=== PATIENT | male | born 1960 | race African-American/Black ===

== ENCOUNTER 2019-08-23 12:57 | Emergency (ER) | payer MEDICAID ==
[~2019-08-23] VITALS: Ht 177.8 cm; Wt 77.0 kg
[~2019-08-23 12:57] MED LIST: ALBU18HF2 IH; FLUT1DIS3 INH; IPRA3AMP9 NEB; NIFE-32 MT; NIFE-33 PO; P20 MT
[2019-08-23] MEDS ORDERED: KETOROLAC 60MG/2ML VIAL IM ONE (14:15)
[2019-08-23 14:59] VITALS: BP 136/88
== END 2019-08-23 15:00 | disposition home or self-care (01) ==
LOC: ER 12:57
DX: R07.89 Other chest pain (principal); I10 Essential (primary) hypertension
CPT/HCPCS: 71045; 93005; 96372; 99283; J1885

== ENCOUNTER 2019-10-11 19:21 | Inpatient (IN) | payer MEDICAID ==
[~2019-10-11] VITALS: Ht 182.9 cm; Wt 97.5 kg
[2019-10-11] MEDS ORDERED: IPRATROPIUM BROMIDE (0.02%) 0.5MG/2.5ML NEB HHN STA (19:50)
[2019-10-11] MEDS ORDERED: ALBUTEROL (0.083%) 2.5MG/3ML NEB HHN STA (19:50)
[2019-10-11] MEDS ORDERED: METHYLPREDNISOLONE SOD SUCC 125 MG/2 ML VIAL IV STA (20:47)
[2019-10-11 20:57] LABS: BASOPHILS % 1.3 % (0.0-2.0); EOSINOPHILS % 11.9 % (0.0-5.0); HEMATOCRIT. 43.9 % (42.0-52.0); HEMOGLOBIN. 14.8 g/dL (14.0-18.0); LYMPHOCYTES % 39.8 % (20.0-50.0); MEAN CORPUSCULAR HEMOGLOBIN 32.8 pg (28.0-32.0); MEAN CORPUSCULAR VOLUME 97.6 fL (80.0-94.0); MEAN PLATELET VOLUME 8.7 fl (7.4-10.4); MONOCYTES % 9.9 % (2.0-8.0); NEUTROPHILS % 37.1 % (40.0-76.0); PLATELET 187 x1000/uL (130-400); RED CELL DISTRIBUTION WIDTH 14.7 % (11.6-14.6)
[2019-10-11 21:01] LABS: PROTHROMBIN TIME 10.6 sec (9.6-11.0)
[2019-10-11 21:03] LABS: CHLORIDE 106 mEq/L (98-107)
[2019-10-11] MEDS ORDERED: LEVOFLOXACIN 750MG PREMIX 150 ML IV ONE (21:30)
[2019-10-12] MEDS ORDERED: CLONIDINE 0.2MG TABLET PO SCH
[2019-10-12] MEDS ORDERED: AMLODIPINE 5MG TABLET PO SCH
[2019-10-12] MEDS ORDERED: ALBUTEROL 6.7GM HFA INHALER ORI ONE (01:30)
[2019-10-12 04:00] VITALS: BP 151/100
[2019-10-12 05:00] VITALS: BP 151/100
[2019-10-12] MEDS ORDERED: ACETAMINOPHEN 325MG TABLET PO PRN (05:15)
[2019-10-12] MEDS ORDERED: IPRATROPIUM/ALBUTEROL 0.5-3(2.5)MG/3ML NEB HHN PRN (05:15)
[2019-10-12] MEDS ORDERED: CLONIDINE 0.1MG TABLET PO PRN (05:15)
[2019-10-12 08:00] VITALS: BP_SYST 100; BP_SYST 155; BP_DIAS 54; BP_DIAS 96
[2019-10-12] MEDS ORDERED: ENOXAPARIN 40MG/0.4ML SYR SUBCUT SCH (09:00)
[2019-10-12] MEDS ORDERED: ENOXAPARIN 30MG/0.3ML SYR SUBCUT SCH (09:00)
[2019-10-12] MEDS ORDERED: METHYLPREDNISOLONE SOD SUCC 40 MG/ML VIAL IV SCH (10:00)
[2019-10-12 12:00] VITALS: BP 150/96
[2019-10-12] MEDS: AZITHROMYCIN 500 MG TABLET PO SCH (12:08)
[2019-10-12] MEDS: AMLODIPINE 10MG TABLET PO SCH (12:08)
[2019-10-12] MEDS: CEFTRIAXONE 1 G PREMIX 50 ML IV SCH (12:16)
[2019-10-12] MEDS: ALBUTEROL 6.7GM HFA INHALER ORI SCH ×2 (14:05→21:25)
[2019-10-12 16:00] VITALS: BP 161/94
[2019-10-12] MEDS: METHYLPREDNISOLONE SOD SUCC 40 MG/ML VIAL IV SCH (16:48)
[2019-10-12 18:22] LABS: *AMPHETAMINES SCREEN URINE NEGATIVE (NEGATIVE); *BARBITURATES SCREEN URINE NEGATIVE (NEGATIVE)
[2019-10-12 18:23] LABS: *BENZODIAZEPINES SCREEN URINE NEGATIVE (NEGATIVE); *COCAINE SCREEN URINE NEGATIVE (NEGATIVE); CANNABINOID URINE SCREEN NEGATIVE (NEGATIVE); METHADONE URINE SCREEN NEGATIVE (NEGATIVE); OPIATES URINE SCREEN NEGATIVE (NEGATIVE); PHENCYCLIDINE URINE SCREEN NEGATIVE (NEGATIVE)
[2019-10-12 20:00] VITALS: BP 132/93
[2019-10-12] MEDS: GUAIFENESIN 600MG ER TABLET PO SCH (20:25)
[2019-10-13] MEDS: ALBUTEROL 6.7GM HFA INHALER ORI SCH (01:15)
[2019-10-13 04:00] VITALS: BP 134/87
[2019-10-13 08:00] VITALS: BP 128/82
[2019-10-13] MEDS ORDERED: ENOXAPARIN 40MG/0.4ML SYR SUBCUT SCH (09:00)
[2019-10-13] MEDS: AMLODIPINE 10MG TABLET PO SCH (09:21)
[2019-10-13] MEDS: AZITHROMYCIN 500 MG TABLET PO SCH (09:21)
[2019-10-13] MEDS: METHYLPREDNISOLONE SOD SUCC 40 MG/ML VIAL IV SCH ×2 (09:21→16:31)
[2019-10-13] MEDS: GUAIFENESIN 600MG ER TABLET PO SCH (09:21)
[2019-10-13 12:00] VITALS: BP 128/78
[2019-10-13] MEDS: CEFTRIAXONE 1 G PREMIX 50 ML IV SCH (13:12)
[2019-10-13] MEDS ORDERED: ALBUTEROL (0.083%) 2.5MG/3ML NEB HHN SCH (14:00)
[2019-10-13] MEDS ORDERED: IPRA3AMP9 NEB (14:13)
[2019-10-13] MEDS ORDERED: P20 MT (14:13)
[2019-10-13] MEDS ORDERED: ALBU18HF2 IH (14:13)
[2019-10-13] MEDS ORDERED: FLUT1DIS3 INH (14:13)
[2019-10-13] MEDS ORDERED: AMLO10TA80 PO (14:13)
[2019-10-13 16:40] VITALS: BP 128/82
== END 2019-10-13 17:30 | disposition home or self-care (01) | DRG 720 ==
LOC: ER 19:25 → 7WST 22:20 → EDBEDREQ 10-12 00:59 → ENRESERV 10-12 03:03 → 6WST 10-12 22:46
PROVIDERS: ADMIT Internal Medicine; ATTEND Internal Medicine
DX: A41.9 Sepsis, unspecified organism (principal); J96.00 Acute respiratory failure, unspecified whether with hypoxia or hypercapnia; J18.9 Pneumonia, unspecified organism; F17.210 Nicotine dependence, cigarettes, uncomplicated; F15.10 Other stimulant abuse, uncomplicated; F12.10 Cannabis abuse, uncomplicated; J44.1 Chronic obstructive pulmonary disease with (acute) exacerbation; F14.10 Cocaine abuse, uncomplicated; I49.3 Ventricular premature depolarization; I10 Essential (primary) hypertension; Z20.828 Contact with and (suspected) exposure to other viral communicable diseases; J44.0 Chronic obstructive pulmonary disease with (acute) lower respiratory infection; Y92.89 Other specified places as the place of occurrence of the external cause; Z79.899 Other long term (current) drug therapy; Z71.6 Tobacco abuse counseling; Z71.51 Drug abuse counseling and surveillance of drug abuser
CPT/HCPCS: 36415; 71045; 80053; 80305; 83605; 83880; 84145; 84484; 85025; 93005; 94640; 99285; J0696; J1650; J1956; J2920; J2930; U0003-CS

== ENCOUNTER 2019-11-26 16:43 | Inpatient (IN) | payer MEDICAID ==
[~2019-11-26] VITALS: Ht 188 cm; Wt 102.1 kg
[~2019-11-26 16:43] MED LIST changes: +AMLO10TA80 PO; -NIFE-32 MT; -NIFE-33 PO
[2019-11-26] MEDS ORDERED: ONDANSETRON HCL 4MG/2ML INJ IV STA (17:10)
[2019-11-26] MEDS ORDERED: FAMOTIDINE 20MG/2ML VIAL IV STA (17:10)
[2019-11-26] MEDS ORDERED: SODIUM CHLORIDE 0.9% 1,000 ML IV ONE (17:10)
[2019-11-26 18:12] LABS: BASOPHILS % 1.4 % (0.0-2.0); EOSINOPHILS % 12.1 % (0.0-5.0); HEMATOCRIT. 36.7 % (42.0-52.0); HEMOGLOBIN. 12.8 g/dL (14.0-18.0); LYMPHOCYTES % 31.9 % (20.0-50.0); MEAN CORPUSCULAR HEMOGLOBIN 33.7 pg (28.0-32.0); MEAN CORPUSCULAR VOLUME 96.7 fL (80.0-94.0); MEAN PLATELET VOLUME 7.7 fl (7.4-10.4); MONOCYTES % 12.1 % (2.0-8.0); NEUTROPHILS % 42.5 % (40.0-76.0); PLATELET 222 x1000/uL (130-400); RED BLOOD CELL COUNT 3.79 mill/uL (4.7-6.1)
[2019-11-26 18:18] LABS: CHLORIDE 105 mEq/L (98-107)
[2019-11-26 18:21] LABS: PROTHROMBIN TIME 10.9 sec (9.6-11.0)
[2019-11-26 18:23] LABS: ETHANOL BLOOD < 10 mg/dL
[2019-11-26] MEDS ORDERED: ALBUTEROL 6.7GM HFA INHALER ORI ONE (18:45)
[2019-11-26] MEDS ORDERED: AZITHROMYCIN 500 MG in DEXT 5% WATER 250 ML IV ONE (18:45)
[2019-11-26] MEDS ORDERED: MAGNESIUM 2 G PREMIX 50 ML IV ONE (18:45)
[2019-11-26] MEDS ORDERED: CEFTRIAXONE 1 G PREMIX 50 ML IV ONE (18:45)
[2019-11-26] MEDS ORDERED: DEXAMETHASONE 10 MG/ML VIAL IV ONE (18:45)
[2019-11-26 19:45] LABS: D-DIMER 0.38 mg/L FEU (<0.50)
[2019-11-26 21:25] LABS: C REACTIVE PROTEIN QUANT 0.9 mg/L (0.0-3.0)
[2019-11-26 22:59] LABS: CLARITY URINE CLEAR (CLEAR); COLOR URINE YELLOW (YELLOW); KETONES URINE NEGATIVE (NEGATIVE); LEUKOCYTE ESTERASE URINE NEGATIVE (NEGATIVE); NITRITE URINE NEGATIVE (NEGATIVE); OCCULT BLOOD URINE NEGATIVE (NEGATIVE); PROTEIN URINE NEGATIVE (NEGATIVE); SPECIFIC GRAVITY URINE 1.015 (1.005-1.030)
[2019-11-26 23:12] LABS: *BARBITURATES SCREEN URINE NEGATIVE (NEGATIVE); *BENZODIAZEPINES SCREEN URINE NEGATIVE (NEGATIVE); *COCAINE SCREEN URINE PRESUMTIVE POSITIVE (NEGATIVE)
[2019-11-26 23:13] LABS: *AMPHETAMINES SCREEN URINE PRESUMTIVE POSITIVE (NEGATIVE); CANNABINOID URINE SCREEN NEGATIVE (NEGATIVE); METHADONE URINE SCREEN NEGATIVE (NEGATIVE); OPIATES URINE SCREEN NEGATIVE (NEGATIVE); PHENCYCLIDINE URINE SCREEN NEGATIVE (NEGATIVE)
[2019-11-26 23:40] VITALS: BP 117/80
[2019-11-27] MEDS ORDERED: AZITHROMYCIN 500 MG in DEXT 5% WATER 250 ML IV SCH (01:00)
[2019-11-27] MEDS ORDERED: HYDROCODONE/ACETAMINOPHEN 5/325MG TABLET PO PRN (01:00)
[2019-11-27] MEDS ORDERED: ALBUTEROL 6.7GM HFA INHALER ORI PRN (01:00)
[2019-11-27] MEDS ORDERED: ACETAMINOPHEN 650MG/20.3ML UDC PO PRN (01:00)
[2019-11-27 04:00] VITALS: BP 136/89
[2019-11-27 08:00] VITALS: BP 132/84
[2019-11-27] MEDS: ENOXAPARIN 40MG/0.4ML SYR SUBCUT SCH (09:19)
[2019-11-27] MEDS: DEXAMETHASONE 4MG TABLET PO SCH (09:19)
[2019-11-27] MEDS: ASCORBIC ACID 500 MG TABLET PO SCH ×2 (09:20→20:40)
[2019-11-27] MEDS ORDERED: ALBUTEROL 6.7GM HFA INHALER ORI SCH (11:30)
[2019-11-27] MEDS: FAMOTIDINE 20MG/2ML VIAL IV SCH (14:59)
[2019-11-27 16:00] VITALS: BP 131/85
[2019-11-27 20:00] VITALS: BP 90/63
[2019-11-27] MEDS ORDERED: AZITHROMYCIN 250 MG in DEXT 5% WATER 250 ML IV SCH (21:00)
[2019-11-28] VITALS: BP 125/86
[2019-11-28 04:00] VITALS: BP 139/88
[2019-11-28 08:13] VITALS: BP 135/81
[2019-11-28] MEDS: DEXAMETHASONE 4MG TABLET PO SCH (09:59)
[2019-11-28] MEDS: FAMOTIDINE 20MG/2ML VIAL IV SCH (09:59)
[2019-11-28] MEDS: ASCORBIC ACID 500 MG TABLET PO SCH (09:59)
[2019-11-28] MEDS: ENOXAPARIN 40MG/0.4ML SYR SUBCUT SCH (09:59)
[2019-11-28] MEDS ORDERED: AZIT250T12 MT (12:08)
[2019-11-28] MEDS ORDERED: ALBU18HF2 IH (12:08)
[2019-11-28 12:53] VITALS: BP 128/83
[2019-11-28] MEDS ORDERED: IPRA3AMP9 NEB (12:56)
[2020-01-17] MEDS ORDERED: P20 MT (12:41)
[2020-01-17] MEDS ORDERED: FLUT1DIS3 INH (12:41)
[2020-01-17] MEDS ORDERED: ALBU18HF2 IH (12:41)
[2020-01-17] MEDS ORDERED: IPRA3AMP9 NEB (12:41)
== END 2019-11-28 13:55 | disposition home or self-care (01) | DRG 144 ==
LOC: ER 16:43 → 7WST 18:48 → ENRESERV 21:45 → 5WST 11-28 00:03
PROVIDERS: ADMIT Internal Medicine; ATTEND Internal Medicine
DX: J68.0 Bronchitis and pneumonitis due to chemicals, gases, fumes and vapors (principal); J96.00 Acute respiratory failure, unspecified whether with hypoxia or hypercapnia; N17.0 Acute kidney failure with tubular necrosis; I10 Essential (primary) hypertension; F14.10 Cocaine abuse, uncomplicated; F15.10 Other stimulant abuse, uncomplicated; F17.210 Nicotine dependence, cigarettes, uncomplicated; D64.9 Anemia, unspecified; Z20.828 Contact with and (suspected) exposure to other viral communicable diseases; F12.10 Cannabis abuse, uncomplicated; F10.10 Alcohol abuse, uncomplicated; Y90.9 Presence of alcohol in blood, level not specified
CPT/HCPCS: 36415; 71045; 80053; 80305; 80320; 81003; 82550; 82728; 82962; 83605; 83615; 83880; 84484; 85025; 85379; 85384; 86140; 87804; 93005; 94640; 96365; 99291; J0456; J0696; J1100; J1650; J2405; J3475; J3490; J7030; J7060; J8540; G0480; U0003-CS

== ENCOUNTER 2019-12-08 16:09 | Emergency (ER) | payer MEDICAID ==
[~2019-12-08] VITALS: Ht 180.3 cm; Wt 100.0 kg
[~2019-12-08 16:09] MED LIST changes: -AMLO10TA80 PO; +AZIT250T12 MT; -P20 MT
[2019-12-08] MEDS ORDERED: ALBUTEROL (0.083%) 2.5MG/3ML NEB HHN STA ×2 (17:34→19:44)
[2019-12-08] MEDS ORDERED: IPRATROPIUM BROMIDE (0.02%) 0.5MG/2.5ML NEB HHN STA ×2 (17:34→19:44)
[2019-12-08] MEDS ORDERED: PREDNISONE 20MG TABLET PO STA (18:55)
[2019-12-08 19:30] VITALS: BP 121/72
== END 2019-12-08 20:28 | disposition home or self-care (01) ==
LOC: ER 16:09
DX: J44.1 Chronic obstructive pulmonary disease with (acute) exacerbation (principal); Z79.899 Other long term (current) drug therapy
CPT/HCPCS: 71045; 93005; 94640; 99283; J7512; Z7610

== ENCOUNTER 2019-12-12 11:59 | Emergency (ER) | payer MEDICAID ==
[~2019-12-12] VITALS: Ht 177.8 cm; Wt 82.0 kg
[2019-12-12 12:01] VITALS: BP 111/83
[2020-01-17] MEDS ORDERED: P20 MT (12:41)
[2020-01-17] MEDS ORDERED: ALBU18HF2 IH (12:41)
[2020-01-17] MEDS ORDERED: FLUT1DIS3 INH (12:41)
[2020-01-17] MEDS ORDERED: IPRA3AMP9 NEB (12:41)
== END 2019-12-12 12:55 | disposition home or self-care (01) ==
LOC: ER 11:59
DX: J45.909 Unspecified asthma, uncomplicated (principal); I10 Essential (primary) hypertension; Z76.0 Encounter for issue of repeat prescription
CPT/HCPCS: 99281; 99283

== ENCOUNTER 2019-12-31 10:37 | Emergency (ER) | payer MEDICAID ==
[~2019-12-31] VITALS: Ht 190.5 cm; Wt 80.0 kg
[2019-12-31] MEDS ORDERED: ACETAMINOPHEN 325MG TABLET PO ONE (11:30)
[2019-12-31] MEDS ORDERED: CEPHALEXIN 250MG CAPSULE PO ONE (11:30)
[2019-12-31 11:58] VITALS: BP 168/72
[2020-01-17] MEDS ORDERED: ALBU18HF2 IH (12:41)
[2020-01-17] MEDS ORDERED: IPRA3AMP9 NEB (12:41)
[2020-01-17] MEDS ORDERED: FLUT1DIS3 INH (12:41)
[2020-01-17] MEDS ORDERED: P20 MT (12:41)
== END 2019-12-31 11:59 | disposition home or self-care (01) ==
LOC: ER 10:50
DX: L02.214 Cutaneous abscess of groin (principal); Z98.890 Other specified postprocedural states; Z79.899 Other long term (current) drug therapy
CPT/HCPCS: 99283

== ENCOUNTER 2020-01-29 11:34 | Emergency (ER) | payer MEDICAID ==
[~2020-01-29] VITALS: Ht 177.8 cm; Wt 130.0 kg
[~2020-01-29 11:34] MED LIST changes: +P20 MT
[2020-01-29] MEDS ORDERED: LIDOCAINE HCL/PF 1% 10 MG/ML 5ML VIAL IJ STA (13:02)
[2020-01-29] MEDS ORDERED: TETANUS, DIPHTHERIA, PERTUSSIS VAC/PF 0.5ML (>7YR OLD) IM ONE (13:15)
[2020-01-29] MEDS ORDERED: IBUPROFEN 600MG TABLET PO ONE (13:15)
[2020-01-29] MEDS ORDERED: BACITRACIN ZINC OINT UDPKT TOP ONE (13:15)
[2020-01-29 13:42] VITALS: BP 143/101
== END 2020-01-29 14:05 | disposition home or self-care (01) ==
LOC: ER 11:56
DX: L03.011 Cellulitis of right finger (principal); Z23 Encounter for immunization
CPT/HCPCS: 90471; 90715; 99283; J3490

== ENCOUNTER 2020-02-03 09:38 | Emergency (ER) | payer MEDICAID ==
[~2020-02-03] VITALS: Ht 190.5 cm; Wt 99.7 kg
[2020-02-03 10:10] VITALS: BP 130/95
[2020-02-03 10:45] LABS: BASOPHILS % 0.5 % (0.0-2.0); EOSINOPHILS % 13.9 % (0.0-5.0); HEMATOCRIT. 38.4 % (42.0-52.0); HEMOGLOBIN. 12.9 g/dL (14.0-18.0); LYMPHOCYTES % 20.5 % (20.0-50.0); MEAN CORPUSCULAR HEMOGLOBIN 32.5 pg (28.0-32.0); MEAN CORPUSCULAR VOLUME 96.8 fL (80.0-94.0); MEAN PLATELET VOLUME 7.9 fl (7.4-10.4); MONOCYTES % 9.7 % (2.0-8.0); NEUTROPHILS % 55.4 % (40.0-76.0); PLATELET 222 x1000/uL (130-400); RED BLOOD CELL COUNT 3.97 mill/uL (4.7-6.1); RED CELL DISTRIBUTION WIDTH 14.3 % (11.6-14.6)
[2020-02-03 10:51] LABS: CHLORIDE 102 mEq/L (98-107)
[2020-02-03] MEDS ORDERED: ALBUTEROL 6.7GM HFA INHALER ORI ONE (11:15)
[2020-02-03] MEDS ORDERED: PREDNISONE 20MG TABLET PO SCH (11:15)
[2020-02-03] MEDS ORDERED: ALBUTEROL (0.083%) 2.5MG/3ML NEB HHN STA (11:49)
[2020-02-03] MEDS ORDERED: IPRATROPIUM BROMIDE (0.02%) 0.5MG/2.5ML NEB HHN STA (11:49)
== END 2020-02-03 13:53 | disposition home or self-care (01) ==
LOC: ER 09:54
DX: J40 Bronchitis, not specified as acute or chronic (principal); Z87.891 Personal history of nicotine dependence
CPT/HCPCS: 36415; 71045; 80053; 83880; 84484; 85025; 93005; 94640; 99285; J7512; Z7610

== ENCOUNTER 2020-02-14 14:52 | Inpatient (IN) | payer MEDICAID ==
[~2020-02-14] VITALS: Ht 191.8 cm; Wt 98.9 kg
[2020-02-14] MEDS ORDERED: IPRATROPIUM BROMIDE (0.02%) 0.5MG/2.5ML NEB INH ONE ×3 (15:30)
[2020-02-14] MEDS ORDERED: METHYLPREDNISOLONE SOD SUCC 125 MG/2 ML VIAL IV ONE (15:30)
[2020-02-14] MEDS ORDERED: ASPIRIN 81MG TABLET PO ONE (15:30)
[2020-02-14] MEDS ORDERED: ALBUTEROL 6.7GM HFA INHALER ORI ONE ×3 (15:30)
[2020-02-14] MEDS ORDERED: NITROGLYCERIN 0.4MG TABLET SL SL PRN (15:30)
[2020-02-14 15:56] LABS: HEMATOCRIT. 38.5 % (42.0-52.0); MEAN CORPUSCULAR HEMOGLOBIN 32.9 pg (28.0-32.0); MEAN CORPUSCULAR VOLUME 97.1 fL (80.0-94.0); MEAN PLATELET VOLUME 7.9 fl (7.4-10.4); PLATELET 261 x1000/uL (130-400); RED BLOOD CELL COUNT 3.97 mill/uL (4.7-6.1); RED CELL DISTRIBUTION WIDTH 14.3 % (11.6-14.6)
[2020-02-14 16:02] LABS: CHLORIDE 104 mEq/L (98-107)
[2020-02-14 16:28] LABS: PLATELET ESTIMATE NORMAL
[2020-02-14 20:40] VITALS: BP 134/84
[2020-02-14] MEDS ORDERED: IBUP-2030 MT (23:48)
[2020-02-14] MEDS ORDERED: CLIN300C11 MT (23:48)
[2020-02-14] MEDS ORDERED: PROP50TA3 MT (23:48)
[2020-02-14] MEDS ORDERED: ASPI-1158 MT (23:48)
[2020-02-14] MEDS ORDERED: DIPH50CA38 MT (23:48)
[2020-02-14] MEDS ORDERED: AMLO10TA80 MT (23:48)
[2020-02-14] MEDS ORDERED: SITA100T11 MT (23:48)
[2020-02-14] MEDS ORDERED: AMA2 MT (23:48)
[2020-02-14] MEDS ORDERED: ATOR20TA65 MT (23:48)
[2020-02-14] MEDS ORDERED: METF750T46 MT (23:48)
[2020-02-14] MEDS ORDERED: LANS30CA55 MT (23:48)
[2020-02-14] MEDS ORDERED: CHLO25TA2 MT (23:48)
[2020-02-14] MEDS ORDERED: CEPH500C2 MT (23:48)
[2020-02-15] MEDS ORDERED: IPRATROPIUM/ALBUTEROL 0.5-3(2.5)MG/3ML NEB HHN PRN
[2020-02-15] MEDS ORDERED: DEXTROSE 50% WATER 50ML SYRINGE IV PRN
[2020-02-15] MEDS ORDERED: ACETAMINOPHEN 650MG/20.3ML UDC PO PRN
[2020-02-15 00:15] VITALS: BP 147/91
[2020-02-15] MEDS: METHYLPREDNISOLONE SOD SUCC 40 MG/ML VIAL IV SCH ×4 (01:10→21:09)
[2020-02-15 04:00] VITALS: BP 131/81
[2020-02-15] MEDS: OMEPRAZOLE 20MG CAPSULE EXTENDED RELEASE PO SCH (06:39)
[2020-02-15] MEDS: BLOOD SUGAR DIAGNOSTIC STRIP TEST SCH ×2 (06:40→12:20)
[2020-02-15] MEDS: INSULIN LISPRO 100 UNITS/ML SUBCUT SCH ×2 (06:42→12:50)
[2020-02-15] MEDS ORDERED: METFORMIN HCL 500MG TABLET PO SCH (07:50)
[2020-02-15] MEDS: IPRATROPIUM/ALBUTEROL 0.5-3(2.5)MG/3ML NEB HHN SCH ×4 (07:53→21:05)
[2020-02-15 08:00] VITALS: BP 131/101
[2020-02-15] MEDS: AMLODIPINE 10MG TABLET PO SCH (08:55)
[2020-02-15] MEDS ORDERED: ENOXAPARIN 30MG/0.3ML SYR SUBCUT SCH (09:00)
[2020-02-15] MEDS ORDERED: ENOXAPARIN 40MG/0.4ML SYR SUBCUT SCH (09:00)
[2020-02-15] MEDS: FLUTICASONE/VILANTEROL 200-25 BLST.W.DEV ORI SCH ×2 (09:00→17:59)
[2020-02-15] MEDS ORDERED: LEVOFLOXACIN 500MG TABLET PO SCH (09:00)
[2020-02-15 12:00] VITALS: BP 114/87
[2020-02-15] MEDS ORDERED: PNEUMOCOCCAL 23-VAL P-SAC VAC 0.5 ML IM ONE (12:00)
[2020-02-15 16:00] VITALS: BP 118/73
[2020-02-15 20:38] VITALS: BP 105/72
[2020-02-15] MEDS ORDERED: ATORVASTATIN CALCIUM 40MG TABLET PO SCH (21:00)
[2020-02-15 23:22] LABS: *AMPHETAMINES SCREEN URINE NEGATIVE (NEGATIVE); *BARBITURATES SCREEN URINE NEGATIVE (NEGATIVE); *BENZODIAZEPINES SCREEN URINE NEGATIVE (NEGATIVE)
[2020-02-15 23:23] LABS: *COCAINE SCREEN URINE NEGATIVE (NEGATIVE); CANNABINOID URINE SCREEN NEGATIVE (NEGATIVE); METHADONE URINE SCREEN NEGATIVE (NEGATIVE); OPIATES URINE SCREEN NEGATIVE (NEGATIVE); PHENCYCLIDINE URINE SCREEN NEGATIVE (NEGATIVE)
[2020-02-16] MEDS: IPRATROPIUM/ALBUTEROL 0.5-3(2.5)MG/3ML NEB HHN SCH ×3 (00:20→07:31)
[2020-02-16 00:51] VITALS: BP 112/68
[2020-02-16 04:00] VITALS: BP 121/70
[2020-02-16] MEDS: METHYLPREDNISOLONE SOD SUCC 40 MG/ML VIAL IV SCH (05:40)
[2020-02-16] MEDS: OMEPRAZOLE 20MG CAPSULE EXTENDED RELEASE PO SCH (06:31)
[2020-02-16 08:00] VITALS: BP 128/83
[2020-02-16] MEDS ORDERED: ENOXAPARIN 40MG/0.4ML SYR SUBCUT SCH (09:00)
[2020-02-16] MEDS: FLUTICASONE/VILANTEROL 200-25 BLST.W.DEV ORI SCH (09:23)
[2020-02-16] MEDS: AMLODIPINE 10MG TABLET PO SCH (09:24)
== END 2020-02-16 10:48 | disposition left against medical advice (07) | DRG 144 ==
LOC: ER 15:02 → 6WST 18:51 → EDBEDREQ 18:54 → EDBEDREQTM 18:54 → ENRESERV 19:54
PROVIDERS: ADMIT Internal Medicine; ATTEND Internal Medicine
DX: J68.0 Bronchitis and pneumonitis due to chemicals, gases, fumes and vapors (principal); J96.00 Acute respiratory failure, unspecified whether with hypoxia or hypercapnia; D64.9 Anemia, unspecified; Z53.29 Procedure and treatment not carried out because of patient's decision for other reasons; F17.210 Nicotine dependence, cigarettes, uncomplicated; I10 Essential (primary) hypertension; F12.10 Cannabis abuse, uncomplicated; F14.10 Cocaine abuse, uncomplicated; F10.10 Alcohol abuse, uncomplicated; Y90.9 Presence of alcohol in blood, level not specified; Z87.01 Personal history of pneumonia (recurrent); Z88.0 Allergy status to penicillin; Z79.899 Other long term (current) drug therapy; Z71.51 Drug abuse counseling and surveillance of drug abuser
CPT/HCPCS: 36415; 71045; 80053; 80305; 82962; 83036; 83880; 84484; 85025; 93005; 94640; 99285; J1650; J1815; J2920; J2930

== ENCOUNTER 2020-03-02 12:28 | Emergency (ER) | payer MEDICAID ==
[~2020-03-02] VITALS: Ht 190.5 cm; Wt 105.0 kg
[~2020-03-02 12:28] MED LIST changes: +AMA2 MT; +AMLO10TA80 MT; +ASPI-1158 MT; +ATOR20TA65 MT; +CEPH500C2 MT; +CHLO25TA2 MT; +CLIN300C11 MT; +DIPH50CA38 MT; +IBUP-2030 MT; +LANS30CA55 MT; +METF750T46 MT; +PROP50TA3 MT; +SITA100T11 MT
[2020-03-02] MEDS ORDERED: IPRATROPIUM/ALBUTEROL 0.5-3(2.5)MG/3ML NEB HHN ONE (13:15)
[2020-03-02] MEDS ORDERED: PREDNISONE 20MG TABLET PO ONE (13:15)
[2020-03-02 14:25] LABS: BASOPHILS % 1.3 % (0.0-2.0); EOSINOPHILS % 14.2 % (0.0-5.0); HEMATOCRIT. 37.4 % (42.0-52.0); HEMOGLOBIN. 12.6 g/dL (14.0-18.0); LYMPHOCYTES % 35.8 % (20.0-50.0); MEAN CORPUSCULAR HEMOGLOBIN 32.8 pg (28.0-32.0); MEAN CORPUSCULAR VOLUME 97.2 fL (80.0-94.0); MEAN PLATELET VOLUME 8.4 fl (7.4-10.4); MONOCYTES % 8.1 % (2.0-8.0); NEUTROPHILS % 40.6 % (40.0-76.0); PLATELET 202 x1000/uL (130-400); RED BLOOD CELL COUNT 3.85 mill/uL (4.7-6.1); RED CELL DISTRIBUTION WIDTH 14.4 % (11.6-14.6)
[2020-03-02 14:26] LABS: CHLORIDE 105 mEq/L (98-107)
[2020-03-02 14:38] LABS: INR 1.1; PROTHROMBIN TIME 11.3 sec (9.6-11.0)
[2020-03-02] MEDS ORDERED: DOXYCYCLINE HYCLATE 100MG CAPSULE PO ONE (15:00)
[2020-03-02 15:34] LABS: CLARITY URINE CLEAR (CLEAR); COLOR URINE YELLOW (YELLOW); KETONES URINE NEGATIVE (NEGATIVE); LEUKOCYTE ESTERASE URINE NEGATIVE (NEGATIVE); NITRITE URINE NEGATIVE (NEGATIVE); OCCULT BLOOD URINE NEGATIVE (NEGATIVE); PH URINE 5.5 (4.5-8.0); PROTEIN URINE NEGATIVE (NEGATIVE); SPECIFIC GRAVITY URINE 1.012 (1.005-1.030)
[2020-03-02 16:25] VITALS: BP 132/93
== END 2020-03-02 16:35 | disposition home or self-care (01) ==
LOC: ER 12:28
DX: J44.1 Chronic obstructive pulmonary disease with (acute) exacerbation (principal); Z76.0 Encounter for issue of repeat prescription; Z88.0 Allergy status to penicillin; Z87.820 Personal history of traumatic brain injury; Z79.82 Long term (current) use of aspirin; Z79.899 Other long term (current) drug therapy
CPT/HCPCS: 36415; 71045; 80053; 81003; 83880; 84484; 85025; 85610; 93005; 94640; 99285; J7512; Z7610

== ENCOUNTER 2020-03-17 13:14 | Emergency (ER) | payer MEDICAID ==
[~2020-03-17] VITALS: Ht 182.9 cm; Wt 91.0 kg
[2020-03-17] MEDS ORDERED: METHYLPREDNISOLONE SOD SUCC 125 MG/2 ML VIAL IV STA (14:51)
[2020-03-17] MEDS ORDERED: IPRATROPIUM BROMIDE (0.02%) 0.5MG/2.5ML NEB HHN STA (14:51)
[2020-03-17 15:00] LABS: CHLORIDE 106 mEq/L (98-107); EOSINOPHILS % 13.5 % (0.0-5.0); HEMATOCRIT. 39.8 % (42.0-52.0); HEMOGLOBIN. 13.3 g/dL (14.0-18.0); LYMPHOCYTES % 33.1 % (20.0-50.0); MEAN CORPUSCULAR HEMOGLOBIN 32.5 pg (28.0-32.0); MEAN CORPUSCULAR VOLUME 97.2 fL (80.0-94.0); MEAN PLATELET VOLUME 8.2 fl (7.4-10.4); MONOCYTES % 7.9 % (2.0-8.0); NEUTROPHILS % 44.5 % (40.0-76.0); PLATELET 235 x1000/uL (130-400); RED CELL DISTRIBUTION WIDTH 14.1 % (11.6-14.6)
[2020-03-17] MEDS ORDERED: MAGNESIUM 2 G PREMIX 50 ML IV ONE (15:00)
[2020-03-17] MEDS ORDERED: DOXYCYCLINE HYCLATE 100 MG/VIAL IV ONE (15:00)
[2020-03-17] MEDS ORDERED: DOXYCYCLINE 100MG in DEXTROSE 5% WATER 100ML IV SCH (15:15)
[2020-03-17] MEDS: ALBUTEROL (0.083%) 2.5MG/3ML NEB HHN SCH (15:27)
[2020-03-17 17:59] VITALS: BP 134/86
== END 2020-03-17 18:15 | disposition home or self-care (01) ==
LOC: ER 13:14
DX: J44.1 Chronic obstructive pulmonary disease with (acute) exacerbation (principal); J18.9 Pneumonia, unspecified organism; E78.00 Pure hypercholesterolemia, unspecified; Z87.891 Personal history of nicotine dependence; Z79.899 Other long term (current) drug therapy; Z88.0 Allergy status to penicillin
CPT/HCPCS: 36415; 71045; 80053; 83880; 84484; 85025; 93005; 94640; 96365; 96375; 99285; J2930; J3475; J3490; J7060; Z7610

== ENCOUNTER 2020-03-31 03:09 | Inpatient (IN) | payer MEDICAID ==
[~2020-03-31] VITALS: Ht 190.5 cm; Wt 100.2 kg
[2020-03-31] MEDS ORDERED: METHYLPREDNISOLONE SOD SUCC 125 MG/2 ML VIAL IV STA (03:32)
[2020-03-31] MEDS ORDERED: IPRATROPIUM BROMIDE (0.02%) 0.5MG/2.5ML NEB HHN STA (03:32)
[2020-03-31] MEDS ORDERED: ALBUTEROL (0.083%) 2.5MG/3ML NEB HHN STA (03:32)
[2020-03-31] MEDS ORDERED: NITROGLYCERIN OINT 1GM/INCH UDPKT TD ONE (03:45)
[2020-03-31] MEDS ORDERED: FUROSEMIDE 40MG/4ML VIAL IV ONE (03:45)
[2020-03-31] MEDS ORDERED: ASPIRIN 81MG TABLET PO ONE (03:45)
[2020-03-31 03:51] LABS: MEAN CORPUSCULAR HEMOGLOBIN 32.2 pg (28.0-32.0); MEAN CORPUSCULAR VOLUME 96.8 fL (80.0-94.0); MEAN PLATELET VOLUME 8.1 fl (7.4-10.4); PLATELET 207 x1000/uL (130-400); RED BLOOD CELL COUNT 4.34 mill/uL (4.7-6.1); RED CELL DISTRIBUTION WIDTH 14.2 % (11.6-14.6)
[2020-03-31 03:56] LABS: CHLORIDE 106 mEq/L (98-107)
[2020-03-31 04:15] LABS: PLATELET ESTIMATE NORMAL
[2020-03-31] MEDS ORDERED: MAGNESIUM/ALUMINUM HYDROXIDE/SIMETHICONE 30ML UDC PO ONE (06:30)
[2020-03-31] MEDS ORDERED: LORAZEPAM 1MG TABLET PO ONE (06:30)
[2020-03-31 11:10] VITALS: BP 133/86
[2020-03-31] MEDS ORDERED: IPRATROPIUM/ALBUTEROL 0.5-3(2.5)MG/3ML NEB HHN PRN ×2 (12:30→15:00)
[2020-03-31] MEDS ORDERED: ACETAMINOPHEN 325MG TABLET PO PRN ×2 (15:00)
[2020-03-31] MEDS ORDERED: ONDANSETRON HCL 4MG/2ML INJ IV PRN (15:00)
[2020-03-31] MEDS ORDERED: CLONIDINE 0.1MG TABLET PO PRN (15:00)
[2020-03-31] MEDS ORDERED: ZOLPIDEM TARTRATE 5MG TABLET PO PRN (15:00)
[2020-03-31] MEDS ORDERED: DIPHENHYDRAMINE 50MG/ML VIAL IV PRN (15:00)
[2020-03-31] MEDS ORDERED: LORAZEPAM 0.5MG TABLET PO PRN (15:00)
[2020-03-31] MEDS ORDERED: GUAIFENESIN 200MG/10ML SUGAR FREE UDC PO PRN (15:00)
[2020-03-31] MEDS ORDERED: MAGNESIUM/ALUMINUM HYDROXIDE/SIMETHICONE 30ML UDC PO PRN (15:00)
[2020-03-31] MEDS ORDERED: IPRATROPIUM/ALBUTEROL 0.5-3(2.5)MG/3ML NEB HHN SCH (18:00)
[2020-03-31] MEDS ORDERED: FAMOTIDINE 20MG TABLET PO SCH (21:00)
[2020-03-31] MEDS ORDERED: SODIUM CHLORIDE 0.9% INJ 3ML FLUSH IVF SCH (22:00)
[2020-03-31] MEDS ORDERED: METHYLPREDNISOLONE SOD SUCC 125 MG/2 ML VIAL IV SCH (22:00)
[2020-04-01] MEDS ORDERED: NICOTINE 21MG PATCH TD SCH (09:00)
== END 2020-03-31 16:22 | disposition left against medical advice (07) | DRG 140 ==
LOC: ER 03:51 → 6WST 05:29 → EDBEDREQ 05:31 → EDBEDREQTM 05:31 → ENRESERV 10:20
PROVIDERS: ADMIT Internal Medicine; ATTEND Internal Medicine
DX: J44.1 Chronic obstructive pulmonary disease with (acute) exacerbation (principal); J96.90 Respiratory failure, unspecified, unspecified whether with hypoxia or hypercapnia; E78.00 Pure hypercholesterolemia, unspecified; F17.200 Nicotine dependence, unspecified, uncomplicated; Z53.29 Procedure and treatment not carried out because of patient's decision for other reasons; Z88.0 Allergy status to penicillin; Z79.82 Long term (current) use of aspirin; Z79.899 Other long term (current) drug therapy; Z71.6 Tobacco abuse counseling; Z87.01 Personal history of pneumonia (recurrent)
CPT/HCPCS: 36415; 71045; 80053; 83880; 84484; 85025; 93005; 94640; 99291; J1940; J2930

== ENCOUNTER 2020-04-02 15:40 | Emergency (ER) | payer MEDICAID ==
[~2020-04-02] VITALS: Ht 190.5 cm; Wt 106.0 kg
[2020-04-02] MEDS ORDERED: IPRATROPIUM/ALBUTEROL 0.5-3(2.5)MG/3ML NEB HHN ONE (16:15)
[2020-04-02] MEDS ORDERED: PREDNISONE 20MG TABLET PO ONE (17:30)
[2020-04-02 17:42] VITALS: BP 139/90
== END 2020-04-02 18:10 | disposition home or self-care (01) ==
LOC: ER 15:40
DX: J44.1 Chronic obstructive pulmonary disease with (acute) exacerbation (principal); E78.00 Pure hypercholesterolemia, unspecified; I10 Essential (primary) hypertension; Z76.0 Encounter for issue of repeat prescription; Z88.0 Allergy status to penicillin; Z79.899 Other long term (current) drug therapy
CPT/HCPCS: 71045; 94640; 99283; J7512; Z7610

== ENCOUNTER 2020-04-12 07:33 | Emergency (ER) | payer MEDICAID ==
[~2020-04-12] VITALS: Ht 185.4 cm; Wt 75.0 kg
[2020-04-12 07:36] VITALS: BP 154/102
[2020-04-12] MEDS ORDERED: KETOROLAC 30MG/ML VIAL IM ONE (08:30)
== END 2020-04-12 12:26 | disposition home or self-care (01) ==
LOC: ER 07:33
DX: G89.29 Other chronic pain (principal); M54.5 Low back pain; J45.909 Unspecified asthma, uncomplicated; E78.00 Pure hypercholesterolemia, unspecified; I10 Essential (primary) hypertension; Z20.828 Contact with and (suspected) exposure to other viral communicable diseases; Z79.899 Other long term (current) drug therapy; Z88.0 Allergy status to penicillin; Z98.890 Other specified postprocedural states
CPT/HCPCS: 87426; 96372; 99283; J1885

== ENCOUNTER 2020-04-15 13:46 | Emergency (ER) | payer MEDICAID ==
[~2020-04-15] VITALS: Ht 177.8 cm; Wt 70.0 kg
[2020-04-15 14:55] VITALS: BP 153/109
[2020-04-15] MEDS ORDERED: IPRATROPIUM BROMIDE (0.02%) 0.5MG/2.5ML NEB HHN STA (14:58)
[2020-04-15] MEDS ORDERED: PREDNISONE 20MG TABLET PO STA (14:58)
[2020-04-15] MEDS ORDERED: DOXYCYCLINE HYCLATE 100MG CAPSULE PO ONE (15:00)
[2020-04-15] MEDS: ALBUTEROL (0.083%) 2.5MG/3ML NEB HHN SCH ×3 (15:40→16:18)
[2020-04-15 15:59] LABS: CHLORIDE 109 mEq/L (98-107)
[2020-04-15 16:06] LABS: BASOPHILS % 1.1 % (0.0-2.0); EOSINOPHILS % 14.7 % (0.0-5.0); HEMATOCRIT. 41.1 % (42.0-52.0); HEMOGLOBIN. 13.7 g/dL (14.0-18.0); LYMPHOCYTES % 24.1 % (20.0-50.0); MEAN CORPUSCULAR HEMOGLOBIN 31.8 pg (28.0-32.0); MEAN CORPUSCULAR VOLUME 95.7 fL (80.0-94.0); MONOCYTES % 7.9 % (2.0-8.0); NEUTROPHILS % 52.2 % (40.0-76.0); PLATELET 213 x1000/uL (130-400); RED CELL DISTRIBUTION WIDTH 14.1 % (11.6-14.6)
== END 2020-04-15 19:10 | disposition home or self-care (01) ==
LOC: ER 13:46
DX: J44.1 Chronic obstructive pulmonary disease with (acute) exacerbation (principal); E11.9 Type 2 diabetes mellitus without complications; E78.00 Pure hypercholesterolemia, unspecified; I11.0 Hypertensive heart disease with heart failure; I50.9 Heart failure, unspecified; Z88.0 Allergy status to penicillin; Z79.899 Other long term (current) drug therapy
CPT/HCPCS: 36415; 71045; 80053; 83880; 84484; 85025; 94640; 99285; J7512; Z7610

== ENCOUNTER 2020-05-07 11:13 | Emergency (ER) | payer MEDICAID ==
[~2020-05-07] VITALS: Ht 188 cm; Wt 100.0 kg
[~2020-05-07 11:13] MED LIST changes: -AZIT250T12 MT; -CEPH500C2 MT; -CLIN300C11 MT
[2020-05-07 11:30] VITALS: BP 118/94
== END 2020-05-07 11:55 | disposition home or self-care (01) ==
LOC: ER 11:13
DX: E11.9 Type 2 diabetes mellitus without complications (principal); J44.1 Chronic obstructive pulmonary disease with (acute) exacerbation; I11.0 Hypertensive heart disease with heart failure; I50.9 Heart failure, unspecified; E78.00 Pure hypercholesterolemia, unspecified; Z76.0 Encounter for issue of repeat prescription; Z79.899 Other long term (current) drug therapy; Z88.0 Allergy status to penicillin; Z98.890 Other specified postprocedural states
CPT/HCPCS: 99283

== ENCOUNTER 2020-06-07 09:05 | Emergency (ER) | payer MEDICAID ==
[~2020-06-07] VITALS: Ht 177.8 cm; Wt 91.0 kg
[~2020-06-07 09:05] MED LIST changes: -ASPI-1158 MT; +ASPI-1406 MT
[2020-06-07] MEDS ORDERED: IPRATROPIUM BROMIDE (0.02%) 0.5MG/2.5ML NEB HHN STA (09:28)
[2020-06-07] MEDS ORDERED: METHYLPREDNISOLONE SOD SUCC 125 MG/2 ML VIAL IM ONE (09:30)
[2020-06-07] MEDS ORDERED: ALBUTEROL (0.083%) 2.5MG/3ML NEB HHN SCH (09:30)
[2020-06-07 11:38] VITALS: BP 140/82
== END 2020-06-07 11:42 | disposition home or self-care (01) ==
LOC: ER 09:05
DX: J44.1 Chronic obstructive pulmonary disease with (acute) exacerbation (principal); Z77.22 Contact with and (suspected) exposure to environmental tobacco smoke (acute) (chronic); I11.0 Hypertensive heart disease with heart failure; I50.9 Heart failure, unspecified; E11.9 Type 2 diabetes mellitus without complications; E78.00 Pure hypercholesterolemia, unspecified; Z88.0 Allergy status to penicillin; Z88.1 Allergy status to other antibiotic agents; Z79.899 Other long term (current) drug therapy; Z98.890 Other specified postprocedural states; Z87.891 Personal history of nicotine dependence
CPT/HCPCS: 71045; 93005; 94640; 96372; 99283; J2930; Z7610

== ENCOUNTER 2020-06-16 12:08 | Emergency (ER) | payer MEDICAID ==
[~2020-06-16] VITALS: Ht 198.1 cm; Wt 103.6 kg
[2020-06-16 12:30] VITALS: BP 126/105
[2020-06-16] MEDS ORDERED: ALBUTEROL (0.083%) 2.5MG/3ML NEB HHN STA (12:44)
[2020-06-16] MEDS ORDERED: IPRATROPIUM BROMIDE (0.02%) 0.5MG/2.5ML NEB HHN STA (12:44)
[2020-06-16] MEDS ORDERED: PREDNISONE 20MG TABLET PO STA (12:44)
[2020-06-16] MEDS ORDERED: AZITHROMYCIN 500 MG TABLET PO ONE (13:45)
[2020-06-16 14:29] LABS: EOSINOPHILS % 12.1 % (0.0-5.0); HEMATOCRIT. 40.8 % (42.0-52.0); HEMOGLOBIN. 13.5 g/dL (14.0-18.0); LYMPHOCYTES % 34.9 % (20.0-50.0); MEAN PLATELET VOLUME 7.8 fl (7.4-10.4); MONOCYTES % 11.4 % (2.0-8.0); NEUTROPHILS % 40.6 % (40.0-76.0); PLATELET 210 x1000/uL (130-400); RED BLOOD CELL COUNT 4.35 mill/uL (4.7-6.1); RED CELL DISTRIBUTION WIDTH 14.6 % (11.6-14.6)
[2020-06-16 14:38] LABS: CHLORIDE 104 mEq/L (98-107)
[2020-06-16] MEDS ORDERED: P20 MT (17:34)
[2020-06-16] MEDS ORDERED: AZIT250T12 PO (17:34)
[2020-06-16] MEDS ORDERED: ATOR20TA65 MT (17:34)
[2020-06-16] MEDS ORDERED: ALBU18HF2 IH (17:34)
[2020-06-16] MEDS ORDERED: FLUT1DIS3 INH (17:34)
[2020-06-17] MEDS ORDERED: METF750T46 MT (16:20)
[2020-06-17] MEDS ORDERED: FLUT1DIS3 INH (16:20)
[2020-06-17] MEDS ORDERED: AMLO10TA80 MT (16:20)
== END 2020-06-16 18:37 | disposition home or self-care (01) ==
LOC: ER 12:36
DX: J44.1 Chronic obstructive pulmonary disease with (acute) exacerbation (principal); I11.0 Hypertensive heart disease with heart failure; I50.9 Heart failure, unspecified; E78.00 Pure hypercholesterolemia, unspecified; Z88.0 Allergy status to penicillin; Z88.1 Allergy status to other antibiotic agents; Z79.899 Other long term (current) drug therapy; Z98.890 Other specified postprocedural states
CPT/HCPCS: 36415; 71045; 80053; 83880; 84484; 85025; 93005; 94640; 99285; J7512; Z7610

== ENCOUNTER 2020-06-17 15:10 | Emergency (ER) | payer MEDICAID ==
[~2020-06-17] VITALS: Ht 185.4 cm; Wt 90.0 kg
[~2020-06-17 15:10] MED LIST changes: +AZIT250T12 PO
[2020-06-17 15:18] VITALS: BP 130/90
[2020-06-17] MEDS ORDERED: FLUT1DIS3 INH (16:20)
[2020-06-17] MEDS ORDERED: AMLO10TA80 MT (16:20)
[2020-06-17] MEDS ORDERED: METF750T46 MT (16:20)
[2020-07-16] MEDS ORDERED: P20 MT (11:19)
[2020-07-16] MEDS ORDERED: FLUT1DIS3 INH (11:19)
[2020-07-16] MEDS ORDERED: ALBU18HF2 IH (11:19)
[2020-07-16] MEDS ORDERED: IPRA3AMP9 NEB (11:19)
== END 2020-06-17 16:44 | disposition home or self-care (01) ==
LOC: ER 15:10
DX: J44.9 Chronic obstructive pulmonary disease, unspecified (principal); E78.00 Pure hypercholesterolemia, unspecified; I10 Essential (primary) hypertension; E11.9 Type 2 diabetes mellitus without complications; Z76.0 Encounter for issue of repeat prescription; Z88.0 Allergy status to penicillin; Z88.1 Allergy status to other antibiotic agents; Z79.899 Other long term (current) drug therapy; Z79.82 Long term (current) use of aspirin
CPT/HCPCS: 99282; 99283

== ENCOUNTER 2020-06-18 20:35 | Inpatient (IN) | payer MEDICAID ==
[~2020-06-18] VITALS: Ht 172.7 cm; Wt 79.8 kg
[2020-06-18 22:44] LABS: BASOPHILS % 0.9 % (0.0-2.0); EOSINOPHILS % 9.5 % (0.0-5.0); HEMATOCRIT. 40.3 % (42.0-52.0); LYMPHOCYTES % 36.3 % (20.0-50.0); MEAN CORPUSCULAR HEMOGLOBIN 30.6 pg (28.0-32.0); MEAN CORPUSCULAR VOLUME 94.5 fL (80.0-94.0); MEAN PLATELET VOLUME 8.1 fl (7.4-10.4); MONOCYTES % 9.8 % (2.0-8.0); NEUTROPHILS % 43.5 % (40.0-76.0); PLATELET 231 x1000/uL (130-400); RED BLOOD CELL COUNT 4.26 mill/uL (4.7-6.1); RED CELL DISTRIBUTION WIDTH 14.6 % (11.6-14.6)
[2020-06-18 22:50] LABS: CHLORIDE 104 mEq/L (98-107)
[2020-06-18 22:52] LABS: CLARITY URINE CLEAR (CLEAR); COLOR URINE YELLOW (YELLOW); KETONES URINE NEGATIVE (NEGATIVE); LEUKOCYTE ESTERASE URINE NEGATIVE (NEGATIVE); NITRITE URINE NEGATIVE (NEGATIVE); OCCULT BLOOD URINE NEGATIVE (NEGATIVE); PH URINE 6.5 (4.5-8.0); PROTEIN URINE NEGATIVE (NEGATIVE); SPECIFIC GRAVITY URINE 1.004 (1.005-1.030); UROBILINOGEN URINE 0.2 E.U./dL (0.2-1.0)
[2020-06-18 22:55] LABS: C REACTIVE PROTEIN QUANT 1.2 mg/L (0.0-3.0)
[2020-06-18 22:58] LABS: CREATINE KINASE 289 IU/L (39-308); PROTHROMBIN TIME 10.5 sec (9.6-11.0)
[2020-06-18] MEDS ORDERED: ALBUTEROL (0.5%) 2.5MG/0.5ML NEB HHN ONE ×3 (23:30)
[2020-06-18] MEDS ORDERED: DEXAMETHASONE 10 MG/ML VIAL IV ONE (23:30)
[2020-06-19] MEDS ORDERED: ACETAMINOPHEN 325MG TABLET PO PRN (09:30)
[2020-06-19] MEDS ORDERED: ONDANSETRON HCL 4MG/2ML INJ IV PRN (09:30)
[2020-06-19] MEDS: METHYLPREDNISOLONE SOD SUCC 40 MG/ML VIAL IV SCH ×2 (09:53→17:44)
[2020-06-19] MEDS: ENOXAPARIN 40MG/0.4ML SYR SUBCUT SCH (09:53)
[2020-06-19] MEDS ORDERED: ALBUTEROL 6.7GM HFA INHALER ORI PRN (14:00)
[2020-06-19] MEDS ORDERED: DEXTROSE 50% WATER 50ML SYRINGE IV PRN (14:00)
[2020-06-19] MEDS: AMLODIPINE 10MG TABLET PO SCH (14:52)
[2020-06-19 15:05] VITALS: BP 169/60
[2020-06-19 16:00] VITALS: BP 150/93
[2020-06-19] MEDS: INSULIN LISPRO 100 UNITS/ML SUBCUT SCH ×2 (16:56→21:00)
[2020-06-19] MEDS: BLOOD SUGAR DIAGNOSTIC STRIP TEST SCH ×3 (16:56→21:05)
[2020-06-19] MEDS: ALBUTEROL 6.7GM HFA INHALER ORI SCH (18:00)
[2020-06-19] MEDS: LEVOFLOXACIN 500MG TABLET PO SCH (18:49)
[2020-06-19] MEDS: LOSARTAN POTASSIUM 100 MG TABLET PO SCH (18:49)
[2020-06-19 20:00] VITALS: BP 140/103
[2020-06-19] MEDS: FAMOTIDINE 20MG TABLET PO SCH ×2 (21:00→21:05)
[2020-06-20] VITALS: BP 145/87
[2020-06-20] MEDS: METHYLPREDNISOLONE SOD SUCC 40 MG/ML VIAL IV SCH ×2 (01:22→09:35)
[2020-06-20 04:00] VITALS: BP 128/77
[2020-06-20] MEDS: ALBUTEROL 6.7GM HFA INHALER ORI SCH ×2 (06:00)
[2020-06-20] MEDS: BLOOD SUGAR DIAGNOSTIC STRIP TEST SCH ×2 (06:31→13:16)
[2020-06-20] MEDS: INSULIN LISPRO 100 UNITS/ML SUBCUT SCH ×2 (06:31→12:50)
[2020-06-20 08:00] VITALS: BP 136/97
[2020-06-20 09:33] VITALS: BP 142/87
[2020-06-20] MEDS: FAMOTIDINE 20MG TABLET PO SCH (09:35)
[2020-06-20] MEDS: AMLODIPINE 10MG TABLET PO SCH (09:35)
[2020-06-20] MEDS: LOSARTAN POTASSIUM 100 MG TABLET PO SCH (09:35)
[2020-06-20] MEDS: ENOXAPARIN 40MG/0.4ML SYR SUBCUT SCH (09:35)
[2020-06-20] MEDS: LEVOFLOXACIN 500MG TABLET PO SCH (10:56)
[2020-06-20 12:43] VITALS: BP 139/97
[2020-06-20 14:52] LABS: *AMPHETAMINES SCREEN URINE NEGATIVE (NEGATIVE); *BARBITURATES SCREEN URINE NEGATIVE (NEGATIVE); *BENZODIAZEPINES SCREEN URINE NEGATIVE (NEGATIVE)
[2020-06-20 14:53] VITALS: BP 113/75
[2020-06-20 14:53] LABS: *COCAINE SCREEN URINE NEGATIVE (NEGATIVE); CANNABINOID URINE SCREEN NEGATIVE (NEGATIVE); METHADONE URINE SCREEN NEGATIVE (NEGATIVE); OPIATES URINE SCREEN NEGATIVE (NEGATIVE); PHENCYCLIDINE URINE SCREEN NEGATIVE (NEGATIVE)
== END 2020-06-20 15:57 | disposition home or self-care (01) | DRG 140 ==
LOC: ER 20:35 → 7EST 06-19 00:28 → EDBEDREQDT 06-19 00:38 → EDBEDREQSVC 06-19 00:38 → EDBEDREQTM 06-19 00:38 → EDBEDREQ 06-19 00:38 → ENRESERV 06-19 10:09 → 6WST 06-20 09:13
PROVIDERS: ADMIT Internal Medicine; ATTEND Internal Medicine
DX: J44.1 Chronic obstructive pulmonary disease with (acute) exacerbation (principal); J18.9 Pneumonia, unspecified organism; E44.1 Mild protein-calorie malnutrition; E78.5 Hyperlipidemia, unspecified; I10 Essential (primary) hypertension; Z20.822 Contact with and (suspected) exposure to COVID-19; Z60.2 Problems related to living alone; Z87.891 Personal history of nicotine dependence; Z88.1 Allergy status to other antibiotic agents; Z88.0 Allergy status to penicillin; Z79.2 Long term (current) use of antibiotics; Z79.82 Long term (current) use of aspirin; Z79.84 Long term (current) use of oral hypoglycemic drugs; Z79.899 Other long term (current) drug therapy; Z68.26 Body mass index [BMI] 26.0-26.9, adult; F19.10 Other psychoactive substance abuse, uncomplicated; J44.0 Chronic obstructive pulmonary disease with (acute) lower respiratory infection
CPT/HCPCS: 36415; 71045; 80053; 80305; 81003; 82550; 82728; 82962; 83036; 83605; 83615; 84145; 84484; 85025; 85384; 86140; 93005; 94640; 96372; 99285; J1100; J1650; J2920; U0003

== ENCOUNTER 2020-08-03 12:56 | Inpatient (IN) | payer MEDICAID ==
[~2020-08-03] VITALS: Ht 190.5 cm; Wt 105.7 kg
[~2020-08-03 12:56] MED LIST changes: -AZIT250T12 PO
[2020-08-03] MEDS ORDERED: LIDOCAINE HCL/PF 1% 2ML VIAL ONE (13:05)
[2020-08-03] MEDS ORDERED: METHYLPREDNISOLONE SOD SUCC 125 MG/2 ML VIAL IV STA (13:06)
[2020-08-03] MEDS ORDERED: IPRATROPIUM BROMIDE (0.02%) 0.5MG/2.5ML NEB HHN STA (13:06)
[2020-08-03] MEDS ORDERED: ALBUTEROL (0.083%) 2.5MG/3ML NEB HHN STA (13:06)
[2020-08-03] MEDS ORDERED: ASPIRIN 325MG TABLET PO ONE (13:15)
[2020-08-03 14:11] LABS: BG BASE EXCESS 0.5 mmol/L (-2.0-2.0); BG CARBOXYHEMOGLOBIN 0.5 % (0.5-1.5); BG DEOXYHEMOGLOBIN 7.3 % (0.0-5.0); BG FRACTION INSPIRED OXYGEN 21; BG HCO3 ACT 25.7 mmol/L (22.0-26.0); BG OXYGEN SATURATION 92.7 % (92.0-98.5); BG OXYHEMOGLOBIN 92.2 % (94.0-97.0); BG PCO2 43.6 mmHg (35.0-45.0); BG PH 7.388 (7.350-7.450); BG PO2 65.8 mmHg (75.0-100.0); BG SAMPLE SITE LEFT RADIAL; BG TOTAL HEMOGLOBIN 12.8 g/dL (12.0-18.0); BG VENT MODE ROOM AIR
[2020-08-03 14:33] LABS: BASOPHILS % 1.1 % (0.0-2.0); EOSINOPHILS % 13.2 % (0.0-5.0); HEMATOCRIT. 38.2 % (42.0-52.0); HEMOGLOBIN. 12.6 g/dL (14.0-18.0); LYMPHOCYTES % 26.4 % (20.0-50.0); MEAN CORPUSCULAR HEMOGLOBIN 31.5 pg (28.0-32.0); MEAN PLATELET VOLUME 8.2 fl (7.4-10.4); MONOCYTES % 11.3 % (2.0-8.0); PLATELET 203 x1000/uL (130-400); RED BLOOD CELL COUNT 3.98 mill/uL (4.7-6.1); RED CELL DISTRIBUTION WIDTH 16.3 % (11.6-14.6)
[2020-08-03 14:39] LABS: CHLORIDE 110 mEq/L (98-107)
[2020-08-03 14:44] LABS: INR 1.1; PARTIAL THROMBOPLASTIN TIME 28.6 sec (23.4-31.0); PROTHROMBIN TIME 11.3 sec (9.6-11.0)
[2020-08-03] MEDS ORDERED: ALBUTEROL (0.083%) 2.5MG/3ML NEB HHN ONE (15:45)
[2020-08-03] MEDS ORDERED: IPRATROPIUM BROMIDE (0.02%) 0.5MG/2.5ML NEB HHN ONE (15:45)
[2020-08-03 19:40] LABS: CLARITY URINE CLEAR (CLEAR); COLOR URINE DARK YELLOW (YELLOW); KETONES URINE TRACE (NEGATIVE); LEUKOCYTE ESTERASE URINE NEGATIVE (NEGATIVE); NITRITE URINE NEGATIVE (NEGATIVE); OCCULT BLOOD URINE NEGATIVE (NEGATIVE); PH URINE 5.5 (4.5-8.0); PROTEIN URINE TRACE (NEGATIVE); SPECIFIC GRAVITY URINE 1.025 (1.005-1.030)
[2020-08-03 19:57] LABS: *AMPHETAMINES SCREEN URINE PRESUMTIVE POSITIVE (NEGATIVE); *BARBITURATES SCREEN URINE NEGATIVE (NEGATIVE); *BENZODIAZEPINES SCREEN URINE NEGATIVE (NEGATIVE); *COCAINE SCREEN URINE PRESUMTIVE POSITIVE (NEGATIVE); METHADONE URINE SCREEN NEGATIVE (NEGATIVE)
[2020-08-03 19:58] LABS: CANNABINOID URINE SCREEN NEGATIVE (NEGATIVE); OPIATES URINE SCREEN NEGATIVE (NEGATIVE); PHENCYCLIDINE URINE SCREEN PRESUMTIVE POSITIVE (NEGATIVE)
[2020-08-03 20:30] VITALS: BP 147/82
[2020-08-03] MEDS ORDERED: IPRATROPIUM/ALBUTEROL 0.5-3(2.5)MG/3ML NEB HHN PRN (22:00)
[2020-08-03] MEDS ORDERED: DEXTROSE 50% WATER 50ML SYRINGE IV PRN (22:00)
[2020-08-03] MEDS ORDERED: HYDROCODONE/ACETAMINOPHEN 5/325MG TABLET PO PRN (22:00)
[2020-08-03] MEDS: METHYLPREDNISOLONE SOD SUCC 40 MG/ML VIAL IV SCH (22:36)
[2020-08-04] VITALS: BP 154/94
[2020-08-04] MEDS ORDERED: ALBUTEROL (0.083%) 2.5MG/3ML NEB HHN SCH
[2020-08-04] MEDS: BUDESONIDE 0.5MG/2ML NEB HHN SCH ×2 (00:12→08:28)
[2020-08-04] MEDS: ALBUTEROL (0.083%) 2.5MG/3ML NEB HHN SCH ×2 (00:12→08:28)
[2020-08-04 04:00] VITALS: BP 141/87
[2020-08-04] MEDS: IPRATROPIUM/ALBUTEROL 0.5-3(2.5)MG/3ML NEB HHN SCH ×4 (04:30→21:14)
[2020-08-04] MEDS: METHYLPREDNISOLONE SOD SUCC 40 MG/ML VIAL IV SCH ×3 (07:03→22:08)
[2020-08-04] MEDS: BLOOD SUGAR DIAGNOSTIC STRIP TEST SCH ×4 (07:20→20:57)
[2020-08-04 08:00] VITALS: BP 125/83
[2020-08-04] MEDS ORDERED: SALMETEROL 50 MCG/INH 28 BLIST DISKUS INHR ORI SCH (09:00)
[2020-08-04] MEDS: METFORMIN HCL 500MG TABLET PO SCH ×2 (09:16→17:51)
[2020-08-04] MEDS: LEVOFLOXACIN 500MG TABLET PO SCH (09:16)
[2020-08-04] MEDS: AMLODIPINE 10MG TABLET PO SCH (09:16)
[2020-08-04] MEDS: INSULIN LISPRO 100 UNITS/ML SUBCUT SCH ×4 (09:17→20:58)
[2020-08-04 09:39] LABS: CHLORIDE 105 mEq/L (98-107)
[2020-08-04 09:47] LABS: LDL CHOLESTEROL 42 mg/dL (5-100)
[2020-08-04 09:48] LABS: HDL CHOLESTEROL 126 mg/dL (40-59)
[2020-08-04 16:00] VITALS: BP 130/88
[2020-08-04 20:00] VITALS: BP 136/82
[2020-08-05 00:44] VITALS: BP 140/79
[2020-08-05] MEDS: IPRATROPIUM/ALBUTEROL 0.5-3(2.5)MG/3ML NEB HHN SCH ×6 (00:52→20:28)
[2020-08-05 04:00] VITALS: BP 132/86
[2020-08-05] MEDS: METHYLPREDNISOLONE SOD SUCC 40 MG/ML VIAL IV SCH ×3 (06:08→21:35)
[2020-08-05] MEDS: BLOOD SUGAR DIAGNOSTIC STRIP TEST SCH ×4 (06:36→21:13)
[2020-08-05] MEDS: METFORMIN HCL 500MG TABLET PO SCH ×2 (07:50→18:27)
[2020-08-05 08:00] VITALS: BP 146/95
[2020-08-05] MEDS: LEVOFLOXACIN 500MG TABLET PO SCH (09:10)
[2020-08-05] MEDS: INSULIN LISPRO 100 UNITS/ML SUBCUT SCH ×4 (09:11→21:13)
[2020-08-05] MEDS: AMLODIPINE 10MG TABLET PO SCH (09:22)
[2020-08-05 12:00] VITALS: BP 135/81
[2020-08-05 20:00] VITALS: BP 143/85
[2020-08-05] MEDS: FAMOTIDINE 20MG TABLET PO SCH (21:10)
[2020-08-06] VITALS: BP 127/84
[2020-08-06] MEDS: IPRATROPIUM/ALBUTEROL 0.5-3(2.5)MG/3ML NEB HHN SCH ×4 (01:18→12:42)
[2020-08-06 04:00] VITALS: BP 121/83
[2020-08-06] MEDS: METHYLPREDNISOLONE SOD SUCC 40 MG/ML VIAL IV SCH (06:00)
[2020-08-06] MEDS: BLOOD SUGAR DIAGNOSTIC STRIP TEST SCH ×2 (06:48→12:20)
[2020-08-06 07:35] LABS: HEMATOCRIT. 37.6 % (42.0-52.0); HEMOGLOBIN. 12.6 g/dL (14.0-18.0); MEAN CORPUSCULAR HEMOGLOBIN 31.9 pg (28.0-32.0); MEAN CORPUSCULAR VOLUME 95.3 fL (80.0-94.0); PLATELET 224 x1000/uL (130-400); RED BLOOD CELL COUNT 3.95 mill/uL (4.7-6.1); RED CELL DISTRIBUTION WIDTH 16.1 % (11.6-14.6)
[2020-08-06 07:42] LABS: CHLORIDE 103 mEq/L (98-107)
[2020-08-06] MEDS: INSULIN LISPRO 100 UNITS/ML SUBCUT SCH (07:50)
[2020-08-06 08:00] VITALS: BP 140/94
[2020-08-06] MEDS: METFORMIN HCL 500MG TABLET PO SCH (09:41)
[2020-08-06] MEDS: AMLODIPINE 10MG TABLET PO SCH (09:42)
[2020-08-06] MEDS: FAMOTIDINE 20MG TABLET PO SCH (09:42)
[2020-08-06] MEDS ORDERED: LORAZEPAM 2MG/ML CPJ IV PRN (11:30)
[2020-08-06] MEDS ORDERED: ALBU18HF2 IH (11:57)
[2020-08-06] MEDS ORDERED: FLUT1DIS3 INH (11:57)
[2020-08-06] MEDS ORDERED: IPRA3AMP9 NEB (11:57)
[2020-08-06] MEDS ORDERED: P20 MT (11:57)
[2020-08-06] MEDS ORDERED: AMLO10TA80 MT (11:57)
[2020-08-06 12:00] VITALS: BP 133/89
[2020-08-06 13:32] VITALS: BP 133/89
[2020-08-06 17:13] LABS: PLATELET ESTIMATE NORMAL
== END 2020-08-06 14:41 | disposition home or self-care (01) | DRG 140 ==
LOC: ER 12:56 → 6WST 15:53 → ENRESERV 19:44
PROVIDERS: ADMIT Internal Medicine; ATTEND Internal Medicine
DX: J44.1 Chronic obstructive pulmonary disease with (acute) exacerbation (principal); J96.00 Acute respiratory failure, unspecified whether with hypoxia or hypercapnia; F14.10 Cocaine abuse, uncomplicated; E11.9 Type 2 diabetes mellitus without complications; I10 Essential (primary) hypertension; F15.10 Other stimulant abuse, uncomplicated; Z82.5 Family history of asthma and other chronic lower respiratory diseases; Z87.891 Personal history of nicotine dependence; Z88.0 Allergy status to penicillin; Z79.899 Other long term (current) drug therapy; Z79.84 Long term (current) use of oral hypoglycemic drugs; Z71.51 Drug abuse counseling and surveillance of drug abuser
CPT/HCPCS: 36415; 36600; 71045; 80048; 80053; 80061; 80305; 81003; 82375; 82805; 82962; 83036; 83880; 84484; 85025; 93005; 94640; 99285; J1815; J2920; J2930; J3490; J7626

== ENCOUNTER 2020-09-01 20:39 | Inpatient (IN) | payer MEDICAID ==
[~2020-09-01] VITALS: Ht 188 cm; Wt 113.6 kg
[2020-09-01] MEDS ORDERED: ALBUTEROL (0.083%) 2.5MG/3ML NEB HHN STA (22:01)
[2020-09-01] MEDS ORDERED: IPRATROPIUM BROMIDE (0.02%) 0.5MG/2.5ML NEB HHN STA (22:01)
[2020-09-01] MEDS ORDERED: PREDNISONE 20MG TABLET PO STA (22:01)
[2020-09-02 00:27] LABS: CHLORIDE 104 mEq/L (98-107)
[2020-09-02] MEDS ORDERED: ASPIRIN 325MG EC TABLET PO ONE (01:00)
[2020-09-02 01:47] LABS: BASOPHILS % 0.8 % (0.0-2.0); EOSINOPHILS % 2.8 % (0.0-5.0); HEMATOCRIT. 36.5 % (42.0-52.0); HEMOGLOBIN. 12.3 g/dL (14.0-18.0); LYMPHOCYTES % 18.2 % (20.0-50.0); MEAN CORPUSCULAR HEMOGLOBIN 31.6 pg (28.0-32.0); MEAN CORPUSCULAR VOLUME 93.9 fL (80.0-94.0); MEAN PLATELET VOLUME 8.3 fl (7.4-10.4); MONOCYTES % 11.2 % (2.0-8.0); PLATELET 245 x1000/uL (130-400); RED BLOOD CELL COUNT 3.89 mill/uL (4.7-6.1); RED CELL DISTRIBUTION WIDTH 15.6 % (11.6-14.6)
[2020-09-02 05:10] VITALS: BP 145/94
[2020-09-02] MEDS ORDERED: ONDANSETRON HCL 4MG/2ML INJ IV PRN (07:15)
[2020-09-02] MEDS ORDERED: DEXTROSE 50% WATER 50ML SYRINGE IV PRN (07:15)
[2020-09-02] MEDS ORDERED: ACETAMINOPHEN 325MG TABLET PO PRN (07:15)
[2020-09-02] MEDS: BLOOD SUGAR DIAGNOSTIC STRIP TEST SCH ×4 (07:20→21:00)
[2020-09-02] MEDS: INSULIN LISPRO 100 UNITS/ML SUBCUT SCH ×4 (07:50→21:00)
[2020-09-02 08:00] VITALS: BP 158/88
[2020-09-02] MEDS ORDERED: MEDICATION NOT ON FORMULARY EA (Fluticasone/Salmeterol (Advair 250-50 Diskus) 1 PUFF) INH SCH (09:00)
[2020-09-02] MEDS ORDERED: MEDICATION NOT ON FORMULARY EA (Sitagliptin Phosphate (Januvia) 1 TAB) MT SCH (09:00)
[2020-09-02] MEDS ORDERED: ENOXAPARIN 30MG/0.3ML SYR SUBCUT SCH (09:00)
[2020-09-02] MEDS: METFORMIN HCL 500MG TABLET PO SCH ×2 (09:30→18:07)
[2020-09-02] MEDS: ASPIRIN 81MG EC TABLET PO SCH (09:30)
[2020-09-02] MEDS: ATORVASTATIN CALCIUM 20MG TABLET PO SCH (09:30)
[2020-09-02] MEDS: LINAGLIPTIN 5MG TABLET PO SCH (09:31)
[2020-09-02] MEDS: PREDNISONE 20MG TABLET PO SCH (09:31)
[2020-09-02] MEDS: AMLODIPINE 10MG TABLET PO SCH (09:31)
[2020-09-02] MEDS: LANSOPRAZOLE 30MG DR CAPSULE PO SCH (09:32)
[2020-09-02] MEDS ORDERED: MAGNESIUM/ALUMINUM HYDROXIDE/SIMETHICONE 30ML UDC PO PRN (10:15)
[2020-09-02] MEDS ORDERED: CLONIDINE 0.1MG TABLET PO PRN (10:15)
[2020-09-02] MEDS ORDERED: HYDROCODONE/ACETAMINOPHEN 5/325MG TABLET PO PRN (10:15)
[2020-09-02 11:12] LABS: HEMATOCRIT 38.3 % (42.0-52.0); HEMOGLOBIN 12.8 g/dL (14.0-18.0); MEAN CORPUSCULAR HEMOGLOBIN 31.4 pg (28.0-32.0); MEAN CORPUSCULAR VOLUME 94.1 fL (80.0-94.0); PLATELET 243 x1000/uL (130-400); RED BLOOD CELL COUNT 4.07 mill/uL (4.7-6.1); RED CELL DISTRIBUTION WIDTH 15.5 % (11.6-14.6)
[2020-09-02 12:00] VITALS: BP 166/98
[2020-09-02] MEDS: PROPYLTHIOURACIL 50MG TABLET PO SCH ×2 (13:02→18:06)
[2020-09-02] MEDS: ENOXAPARIN 30MG/0.3ML SYR SUBCUT SCH (13:03)
[2020-09-02] MEDS ORDERED: GUAIFENESIN-DM 200MG-20MG/10ML UDC PO PRN (14:00)
[2020-09-02 14:09] LABS: CHLORIDE 104 mEq/L (98-107)
[2020-09-02 16:00] VITALS: BP 158/66
[2020-09-02 20:00] VITALS: BP 143/97
[2020-09-02] MEDS: IPRATROPIUM/ALBUTEROL 0.5-3(2.5)MG/3ML NEB HHN SCH (20:15)
[2020-09-02] MEDS: BUDESONIDE 0.5MG/2ML NEB HHN SCH (20:16)
[2020-09-02 20:44] LABS: CLARITY URINE CLEAR (CLEAR); COLOR URINE YELLOW (YELLOW); KETONES URINE NEGATIVE (NEGATIVE); LEUKOCYTE ESTERASE URINE NEGATIVE (NEGATIVE); NITRITE URINE NEGATIVE (NEGATIVE); OCCULT BLOOD URINE NEGATIVE (NEGATIVE); PROTEIN URINE NEGATIVE (NEGATIVE); SPECIFIC GRAVITY URINE 1.013 (1.005-1.030)
[2020-09-02 21:08] LABS: *AMPHETAMINES SCREEN URINE NEGATIVE (NEGATIVE); *BARBITURATES SCREEN URINE NEGATIVE (NEGATIVE); *BENZODIAZEPINES SCREEN URINE NEGATIVE (NEGATIVE); *COCAINE SCREEN URINE PRESUMTIVE POSITIVE (NEGATIVE); METHADONE URINE SCREEN NEGATIVE (NEGATIVE); OPIATES URINE SCREEN NEGATIVE (NEGATIVE); PHENCYCLIDINE URINE SCREEN NEGATIVE (NEGATIVE)
[2020-09-02 21:09] LABS: CANNABINOID URINE SCREEN NEGATIVE (NEGATIVE)
[2020-09-03] VITALS: BP 141/87
[2020-09-03] MEDS: IPRATROPIUM/ALBUTEROL 0.5-3(2.5)MG/3ML NEB HHN SCH ×2 (00:08→04:50)
[2020-09-03] MEDS: ENOXAPARIN 30MG/0.3ML SYR SUBCUT SCH ×2 (01:19→17:58)
[2020-09-03] MEDS: ALBUTEROL (0.083%) 2.5MG/3ML NEB HHN SCH ×3 (03:05→21:11)
[2020-09-03 04:00] VITALS: BP 150/95
[2020-09-03] MEDS: BLOOD SUGAR DIAGNOSTIC STRIP TEST SCH ×4 (06:43→21:45)
[2020-09-03 07:28] LABS: CHLORIDE 104 mEq/L (98-107)
[2020-09-03 07:31] LABS: BASOPHILS % 0.7 % (0.0-2.0); EOSINOPHILS % 0.8 % (0.0-5.0); HEMATOCRIT. 39.9 % (42.0-52.0); HEMOGLOBIN. 13.3 g/dL (14.0-18.0); MEAN CORPUSCULAR HEMOGLOBIN 31.7 pg (28.0-32.0); MEAN PLATELET VOLUME 8.4 fl (7.4-10.4); MONOCYTES % 10.5 % (2.0-8.0); PLATELET 240 x1000/uL (130-400); RED CELL DISTRIBUTION WIDTH 15.9 % (11.6-14.6)
[2020-09-03 07:38] LABS: LDL CHOLESTEROL 61 mg/dL (5-100)
[2020-09-03 07:41] LABS: PHOSPHORUS 3.1 mg/dL (2.5-4.9); T4 FREE 1.03 ng/dL (0.76-1.46)
[2020-09-03] MEDS: INSULIN LISPRO 100 UNITS/ML SUBCUT SCH ×4 (07:50→21:00)
[2020-09-03 07:51] LABS: HDL CHOLESTEROL 143 mg/dL (40-59)
[2020-09-03 08:13] VITALS: BP 151/99
[2020-09-03] MEDS: BUDESONIDE 0.5MG/2ML NEB HHN SCH ×2 (09:11→21:11)
[2020-09-03] MEDS: PROPYLTHIOURACIL 50MG TABLET PO SCH ×2 (09:22→17:57)
[2020-09-03] MEDS: ASPIRIN 81MG EC TABLET PO SCH (09:23)
[2020-09-03] MEDS: METFORMIN HCL 500MG TABLET PO SCH ×2 (09:23→17:57)
[2020-09-03] MEDS: LINAGLIPTIN 5MG TABLET PO SCH (09:23)
[2020-09-03] MEDS: LANSOPRAZOLE 30MG DR CAPSULE PO SCH (09:23)
[2020-09-03] MEDS: PREDNISONE 20MG TABLET PO SCH (09:23)
[2020-09-03] MEDS: AMLODIPINE 10MG TABLET PO SCH (09:24)
[2020-09-03] MEDS: ATORVASTATIN CALCIUM 20MG TABLET PO SCH (09:24)
[2020-09-03 12:29] VITALS: BP 135/87
[2020-09-03 16:07] VITALS: BP 130/60
[2020-09-03 20:00] VITALS: BP 142/82
[2020-09-03] MEDS ORDERED: IPRA3AMP9 NEB (20:10)
[2020-09-03] MEDS ORDERED: POLYVINYL ALCOHOL OPHTH DROPS 15ML BOTHEYE PRN (21:00)
[2020-09-03] MEDS: FAMOTIDINE 20MG TABLET PO SCH (22:19)
[2020-09-04] MEDS: ENOXAPARIN 30MG/0.3ML SYR SUBCUT SCH (02:13)
[2020-09-04] MEDS: ALBUTEROL (0.083%) 2.5MG/3ML NEB HHN SCH ×2 (03:05→09:22)
[2020-09-04] MEDS: BLOOD SUGAR DIAGNOSTIC STRIP TEST SCH (06:18)
[2020-09-04] MEDS: INSULIN LISPRO 100 UNITS/ML SUBCUT SCH (07:50)
[2020-09-04 08:00] VITALS: BP 145/100
[2020-09-04] MEDS: PROPYLTHIOURACIL 50MG TABLET PO SCH (08:58)
[2020-09-04] MEDS: ATORVASTATIN CALCIUM 20MG TABLET PO SCH (08:58)
[2020-09-04] MEDS: LINAGLIPTIN 5MG TABLET PO SCH (08:59)
[2020-09-04] MEDS: PREDNISONE 20MG TABLET PO SCH (08:59)
[2020-09-04] MEDS: AMLODIPINE 10MG TABLET PO SCH (08:59)
[2020-09-04] MEDS: METFORMIN HCL 500MG TABLET PO SCH (08:59)
[2020-09-04] MEDS: ASPIRIN 81MG EC TABLET PO SCH (08:59)
[2020-09-04] MEDS: FAMOTIDINE 20MG TABLET PO SCH (09:00)
[2020-09-04] MEDS: BUDESONIDE 0.5MG/2ML NEB HHN SCH (09:22)
[2020-09-04 09:37] LABS: BASOPHILS % 0.5 % (0.0-2.0); HEMATOCRIT. 42.1 % (42.0-52.0); HEMOGLOBIN. 13.7 g/dL (14.0-18.0); LYMPHOCYTES % 28.1 % (20.0-50.0); MEAN CORPUSCULAR VOLUME 95.3 fL (80.0-94.0); MEAN PLATELET VOLUME 7.7 fl (7.4-10.4); MONOCYTES % 8.9 % (2.0-8.0); NEUTROPHILS % 61.5 % (40.0-76.0); PLATELET 251 x1000/uL (130-400); RED BLOOD CELL COUNT 4.41 mill/uL (4.7-6.1); RED CELL DISTRIBUTION WIDTH 15.6 % (11.6-14.6)
[2020-09-04 09:44] LABS: CHLORIDE 100 mEq/L (98-107)
[2020-09-04 11:16] VITALS: BP 145/100
[2020-09-04 12:00] VITALS: BP 136/81
== END 2020-09-04 13:44 | disposition home or self-care (01) | DRG 140 ==
LOC: ER 20:39 → 6WST 09-02 02:09 → CANRESERV 09-02 04:20 → ENRESERV 09-02 04:20
PROVIDERS: ADMIT Internal Medicine; ATTEND Internal Medicine
DX: J44.1 Chronic obstructive pulmonary disease with (acute) exacerbation (principal); J96.00 Acute respiratory failure, unspecified whether with hypoxia or hypercapnia; E66.9 Obesity, unspecified; F17.210 Nicotine dependence, cigarettes, uncomplicated; F14.10 Cocaine abuse, uncomplicated; E78.00 Pure hypercholesterolemia, unspecified; I24.9 Acute ischemic heart disease, unspecified; F41.9 Anxiety disorder, unspecified; I50.9 Heart failure, unspecified; J98.11 Atelectasis; I11.0 Hypertensive heart disease with heart failure; Z20.822 Contact with and (suspected) exposure to COVID-19; Z88.0 Allergy status to penicillin; Z79.899 Other long term (current) drug therapy; Z79.82 Long term (current) use of aspirin; Z82.5 Family history of asthma and other chronic lower respiratory diseases; Z71.51 Drug abuse counseling and surveillance of drug abuser; Z88.1 Allergy status to other antibiotic agents; Z98.890 Other specified postprocedural states; Z68.32 Body mass index [BMI] 32.0-32.9, adult
CPT/HCPCS: 36415; 71045; 80048; 80053; 80061; 80305; 81003; 82962; 83036; 83735; 83880; 84100; 84145; 84439; 84484; 85025; 85027; 93005; 93306; 93970; 94640; 97162; 99285; J1650; J7512; J7626

== ENCOUNTER 2020-09-21 16:26 | Inpatient (IN) | payer MEDICAID ==
[~2020-09-21] VITALS: Ht 190.5 cm; Wt 115.2 kg
[2020-09-21] MEDS ORDERED: LISI10TA26 PO (16:48)
[2020-09-21] MEDS ORDERED: MONT10TA32 PO (16:48)
[2020-09-21] MEDS ORDERED: AMLO10TA80 PO (16:48)
[2020-09-21] MEDS ORDERED: IPRATROPIUM BROMIDE (0.02%) 0.5MG/2.5ML NEB HHN STA (16:55)
[2020-09-21] MEDS ORDERED: METHYLPREDNISOLONE SOD SUCC 125 MG/2 ML VIAL IV STA (16:55)
[2020-09-21] MEDS ORDERED: ALBUTEROL (0.083%) 2.5MG/3ML NEB HHN STA (16:55)
[2020-09-21 17:23] LABS: BASOPHILS % 1.5 % (0.0-2.0); EOSINOPHILS % 10.5 % (0.0-5.0); HEMATOCRIT. 37.7 % (42.0-52.0); HEMOGLOBIN. 12.5 g/dL (14.0-18.0); LYMPHOCYTES % 25.5 % (20.0-50.0); MEAN CORPUSCULAR HEMOGLOBIN 31.7 pg (28.0-32.0); MEAN CORPUSCULAR VOLUME 95.2 fL (80.0-94.0); MEAN PLATELET VOLUME 7.8 fl (7.4-10.4); MONOCYTES % 10.1 % (2.0-8.0); NEUTROPHILS % 52.4 % (40.0-76.0); PLATELET 231 x1000/uL (130-400); RED BLOOD CELL COUNT 3.96 mill/uL (4.7-6.1); RED CELL DISTRIBUTION WIDTH 15.7 % (11.6-14.6)
[2020-09-21 17:30] LABS: CHLORIDE 109 mEq/L (98-107)
[2020-09-21] MEDS ORDERED: METHYLPREDNISOLONE SOD SUCC 125 MG/2 ML VIAL IV ONE (19:45)
[2020-09-21] MEDS ORDERED: IPRATROPIUM/ALBUTEROL 0.5-3(2.5)MG/3ML NEB HHN ONE (19:45)
[2020-09-22] MEDS ORDERED: ACETAMINOPHEN 325MG TABLET PO PRN ×2 (07:45)
[2020-09-22] MEDS ORDERED: HYDROCODONE/ACETAMINOPHEN 5/325MG TABLET PO PRN (07:45)
[2020-09-22] MEDS ORDERED: ONDANSETRON HCL 4MG/2ML INJ IV PRN (07:45)
[2020-09-22] MEDS ORDERED: LORAZEPAM 0.5MG TABLET PO PRN (07:45)
[2020-09-22] MEDS ORDERED: CLONIDINE 0.1MG TABLET PO PRN (07:45)
[2020-09-22] MEDS ORDERED: ATOR10TA69 MT (07:55)
[2020-09-22 08:00] VITALS: BP 151/64
[2020-09-22] MEDS ORDERED: *PATIENT'S OWN MEDICATION STORAGE XX SCH (08:15)
[2020-09-22] MEDS: METHYLPREDNISOLONE SOD SUCC 40 MG/ML VIAL IV SCH ×3 (08:51→21:37)
[2020-09-22 10:00] VITALS: BP 151/64
[2020-09-22] MEDS: IPRATROPIUM/ALBUTEROL 0.5-3(2.5)MG/3ML NEB HHN PRN ×2 (10:44→14:56)
[2020-09-22 12:00] VITALS: BP 127/89
[2020-09-22 16:00] VITALS: BP 146/80
[2020-09-22] MEDS ORDERED: LANSOPRAZOLE 30MG DR CAPSULE PO SCH (16:30)
[2020-09-22] MEDS: ASPIRIN 81MG EC TABLET PO SCH (17:40)
[2020-09-22] MEDS: MONTELUKAST SODIUM 10MG TABLET PO SCH (17:40)
[2020-09-22] MEDS: AMLODIPINE 10MG TABLET PO SCH (17:40)
[2020-09-22] MEDS: ATORVASTATIN CALCIUM 10MG TABLET PO SCH (17:40)
[2020-09-22] MEDS: METFORMIN HCL 500MG TABLET PO SCH (17:41)
[2020-09-22 20:00] VITALS: BP 130/77
[2020-09-22] MEDS: CHLORDIAZEPOXIDE 25MG CAPSULE PO SCH (21:36)
[2020-09-22] MEDS: PROPYLTHIOURACIL 50MG TABLET PO SCH (21:37)
[2020-09-23] VITALS: BP 164/86
[2020-09-23 02:08] LABS: *BARBITURATES SCREEN URINE NEGATIVE (NEGATIVE)
[2020-09-23 02:09] LABS: *AMPHETAMINES SCREEN URINE NEGATIVE (NEGATIVE); *BENZODIAZEPINES SCREEN URINE NEGATIVE (NEGATIVE); *COCAINE SCREEN URINE PRESUMTIVE POSITIVE (NEGATIVE); METHADONE URINE SCREEN NEGATIVE (NEGATIVE); OPIATES URINE SCREEN NEGATIVE (NEGATIVE); PHENCYCLIDINE URINE SCREEN NEGATIVE (NEGATIVE)
[2020-09-23 02:10] LABS: CANNABINOID URINE SCREEN NEGATIVE (NEGATIVE)
[2020-09-23 04:00] VITALS: BP 138/81
[2020-09-23] MEDS: CHLORDIAZEPOXIDE 25MG CAPSULE PO SCH ×3 (05:18→21:39)
[2020-09-23] MEDS: METHYLPREDNISOLONE SOD SUCC 40 MG/ML VIAL IV SCH ×2 (05:18→13:19)
[2020-09-23] MEDS: OMEPRAZOLE 20MG CAPSULE EXTENDED RELEASE PO SCH (06:35)
[2020-09-23 08:00] VITALS: BP 148/95
[2020-09-23] MEDS ORDERED: LISINOPRIL 10MG TABLET PO SCH (09:00)
[2020-09-23] MEDS: ASPIRIN 81MG EC TABLET PO SCH (09:16)
[2020-09-23] MEDS: PROPYLTHIOURACIL 50MG TABLET PO SCH ×2 (09:16→17:44)
[2020-09-23] MEDS: ATORVASTATIN CALCIUM 10MG TABLET PO SCH (09:17)
[2020-09-23] MEDS: MONTELUKAST SODIUM 10MG TABLET PO SCH (09:17)
[2020-09-23] MEDS: LINAGLIPTIN 5MG TABLET PO SCH (09:17)
[2020-09-23] MEDS: GLIMEPIRIDE 2MG TABLET PO SCH (09:17)
[2020-09-23] MEDS: AMLODIPINE 10MG TABLET PO SCH (09:17)
[2020-09-23] MEDS: CHLORTHALIDONE 25MG TABLET PO SCH (09:17)
[2020-09-23 10:01] LABS: HEMATOCRIT. 37.8 % (42.0-52.0); HEMOGLOBIN. 12.6 g/dL (14.0-18.0); MEAN CORPUSCULAR HEMOGLOBIN 31.8 pg (28.0-32.0); MEAN CORPUSCULAR VOLUME 94.8 fL (80.0-94.0); MEAN PLATELET VOLUME 8.7 fl (7.4-10.4); PLATELET 240 x1000/uL (130-400); RED BLOOD CELL COUNT 3.98 mill/uL (4.7-6.1); RED CELL DISTRIBUTION WIDTH 15.4 % (11.6-14.6)
[2020-09-23 10:16] LABS: CHLORIDE 104 mEq/L (98-107)
[2020-09-23 10:23] LABS: LDL CHOLESTEROL 44 mg/dL (5-100)
[2020-09-23 10:25] LABS: HDL CHOLESTEROL 132 mg/dL (40-59); T4 FREE 0.97 ng/dL (0.76-1.46)
[2020-09-23 12:00] VITALS: BP 134/91
[2020-09-23 12:38] LABS: PLATELET ESTIMATE NORMAL
[2020-09-23 16:00] VITALS: BP 118/88
[2020-09-23] MEDS: METFORMIN HCL 500MG TABLET PO SCH (17:44)
[2020-09-23 20:00] VITALS: BP 129/73
[2020-09-23] MEDS: BLOOD SUGAR DIAGNOSTIC STRIP TEST SCH (21:00)
[2020-09-23] MEDS: METHYLPREDNISOLONE SOD SUCC 125 MG/2 ML VIAL IV SCH (21:40)
[2020-09-23] MEDS ORDERED: DEXTROSE 50% WATER 50ML SYRINGE IV PRN (21:45)
[2020-09-23] MEDS: INSULIN LISPRO 100 UNITS/ML SUBCUT SCH (22:10)
[2020-09-23] MEDS: IPRATROPIUM/ALBUTEROL 0.5-3(2.5)MG/3ML NEB HHN PRN (22:35)
[2020-09-24] VITALS: BP 121/71
[2020-09-24 04:00] VITALS: BP 120/80
[2020-09-24 06:14] LABS: CHLORIDE 100 mEq/L (98-107)
[2020-09-24] MEDS: METHYLPREDNISOLONE SOD SUCC 125 MG/2 ML VIAL IV SCH ×2 (06:31→13:11)
[2020-09-24] MEDS: CHLORDIAZEPOXIDE 25MG CAPSULE PO SCH ×3 (06:31→21:17)
[2020-09-24] MEDS: OMEPRAZOLE 20MG CAPSULE EXTENDED RELEASE PO SCH (06:31)
[2020-09-24] MEDS: BLOOD SUGAR DIAGNOSTIC STRIP TEST SCH ×4 (06:32→21:14)
[2020-09-24 06:39] LABS: HEMATOCRIT. 39.9 % (42.0-52.0); HEMOGLOBIN. 13.1 g/dL (14.0-18.0); MEAN CORPUSCULAR HEMOGLOBIN 31.6 pg (28.0-32.0); MEAN CORPUSCULAR VOLUME 95.9 fL (80.0-94.0); MEAN PLATELET VOLUME 9.2 fl (7.4-10.4); PLATELET 225 x1000/uL (130-400); RED BLOOD CELL COUNT 4.16 mill/uL (4.7-6.1); RED CELL DISTRIBUTION WIDTH 15.4 % (11.6-14.6)
[2020-09-24 08:00] VITALS: BP 130/77
[2020-09-24] MEDS: IPRATROPIUM/ALBUTEROL 0.5-3(2.5)MG/3ML NEB HHN PRN ×2 (08:25→16:05)
[2020-09-24] MEDS: GLIMEPIRIDE 2MG TABLET PO SCH (08:55)
[2020-09-24] MEDS: PROPYLTHIOURACIL 50MG TABLET PO SCH ×2 (08:55→17:28)
[2020-09-24] MEDS: LORATADINE 10MG TABLET PO SCH (08:55)
[2020-09-24] MEDS: MONTELUKAST SODIUM 10MG TABLET PO SCH (08:55)
[2020-09-24] MEDS: ASPIRIN 81MG EC TABLET PO SCH (08:55)
[2020-09-24] MEDS: LISINOPRIL 20MG TABLET PO SCH (08:55)
[2020-09-24] MEDS: ATORVASTATIN CALCIUM 10MG TABLET PO SCH (08:55)
[2020-09-24] MEDS: LINAGLIPTIN 5MG TABLET PO SCH (08:56)
[2020-09-24] MEDS: AMLODIPINE 10MG TABLET PO SCH (08:56)
[2020-09-24] MEDS: CHLORTHALIDONE 25MG TABLET PO SCH (08:56)
[2020-09-24] MEDS: INSULIN LISPRO 100 UNITS/ML SUBCUT SCH ×4 (09:03→21:00)
[2020-09-24 12:00] VITALS: BP 105/70
[2020-09-24 13:30] LABS: PLATELET ESTIMATE NORMAL
[2020-09-24] MEDS ORDERED: L25 PO (14:49)
[2020-09-24] MEDS ORDERED: IPRA3AMP9 NEB (14:49)
[2020-09-24] MEDS ORDERED: ALBU18HF2 IH (14:49)
[2020-09-24] MEDS ORDERED: P20 MT (14:49)
[2020-09-24] MEDS ORDERED: CLAR10 PO (14:49)
[2020-09-24] MEDS ORDERED: FLUT1DIS3 INH (14:49)
[2020-09-24 16:00] VITALS: BP 115/73
[2020-09-24] MEDS: METFORMIN HCL 500MG TABLET PO SCH (17:28)
[2020-09-24] MEDS: POLYVINYL ALCOHOL OPHTH DROPS 15ML BOTHEYE SCH ×2 (17:30→23:40)
[2020-09-24 20:00] VITALS: BP_SYST 127; BP_SYST 133; BP_DIAS 57; BP_DIAS 73
[2020-09-24] MEDS: IPRATROPIUM/ALBUTEROL 0.5-3(2.5)MG/3ML NEB HHN SCH (21:16)
[2020-09-24] MEDS: METHYLPREDNISOLONE SOD SUCC 40 MG/ML VIAL IV SCH (21:17)
[2020-09-25] VITALS: BP 121/71
[2020-09-25] MEDS: IPRATROPIUM/ALBUTEROL 0.5-3(2.5)MG/3ML NEB HHN SCH ×2 (01:52→08:24)
[2020-09-25 04:00] VITALS: BP 120/79
[2020-09-25 06:18] LABS: CHLORIDE 101 mEq/L (98-107)
[2020-09-25] MEDS: OMEPRAZOLE 20MG CAPSULE EXTENDED RELEASE PO SCH (06:22)
[2020-09-25] MEDS: CHLORDIAZEPOXIDE 25MG CAPSULE PO SCH (06:22)
[2020-09-25] MEDS: POLYVINYL ALCOHOL OPHTH DROPS 15ML BOTHEYE SCH (06:22)
[2020-09-25] MEDS: BLOOD SUGAR DIAGNOSTIC STRIP TEST SCH (06:23)
[2020-09-25] MEDS: METHYLPREDNISOLONE SOD SUCC 40 MG/ML VIAL IV SCH (06:23)
[2020-09-25 06:31] LABS: HEMATOCRIT. 39.7 % (42.0-52.0); HEMOGLOBIN. 12.8 g/dL (14.0-18.0); MEAN CORPUSCULAR HEMOGLOBIN 30.8 pg (28.0-32.0); MEAN CORPUSCULAR VOLUME 95.2 fL (80.0-94.0); MEAN PLATELET VOLUME 9.1 fl (7.4-10.4); PLATELET 240 x1000/uL (130-400); RED BLOOD CELL COUNT 4.17 mill/uL (4.7-6.1); RED CELL DISTRIBUTION WIDTH 15.4 % (11.6-14.6)
[2020-09-25] MEDS: GLIMEPIRIDE 2MG TABLET PO SCH (07:50)
[2020-09-25] MEDS: INSULIN LISPRO 100 UNITS/ML SUBCUT SCH (07:50)
[2020-09-25 08:00] VITALS: BP 117/76
[2020-09-25] MEDS: MONTELUKAST SODIUM 10MG TABLET PO SCH (09:00)
[2020-09-25 09:32] VITALS: BP 117/76
[2020-09-25] MEDS: CHLORTHALIDONE 25MG TABLET PO SCH (09:40)
[2020-09-25] MEDS: ASPIRIN 81MG EC TABLET PO SCH (09:40)
[2020-09-25] MEDS: ATORVASTATIN CALCIUM 10MG TABLET PO SCH (09:40)
[2020-09-25] MEDS: PROPYLTHIOURACIL 50MG TABLET PO SCH (09:41)
[2020-09-25] MEDS: LISINOPRIL 20MG TABLET PO SCH (09:42)
[2020-09-25] MEDS: LORATADINE 10MG TABLET PO SCH (09:43)
[2020-09-25] MEDS: LINAGLIPTIN 5MG TABLET PO SCH (09:43)
[2020-09-25] MEDS: AMLODIPINE 10MG TABLET PO SCH (09:48)
[2020-09-25 17:49] LABS: PLATELET ESTIMATE NORMAL
== END 2020-09-25 10:25 | disposition home or self-care (01) | DRG 141 ==
LOC: ER 16:26 → 6EST 20:26 → ENRESERV 09-22 04:36
PROVIDERS: ADMIT Internal Medicine; ATTEND Internal Medicine
DX: J45.901 Unspecified asthma with (acute) exacerbation (principal); J96.01 Acute respiratory failure with hypoxia; E44.1 Mild protein-calorie malnutrition; E87.70 Fluid overload, unspecified; E11.9 Type 2 diabetes mellitus without complications; D64.9 Anemia, unspecified; D72.821 Monocytosis (symptomatic); K21.9 Gastro-esophageal reflux disease without esophagitis; Z77.22 Contact with and (suspected) exposure to environmental tobacco smoke (acute) (chronic); I10 Essential (primary) hypertension; E78.00 Pure hypercholesterolemia, unspecified; E05.90 Thyrotoxicosis, unspecified without thyrotoxic crisis or storm; Z20.822 Contact with and (suspected) exposure to COVID-19; R74.01 Elevation of levels of liver transaminase levels; Z79.84 Long term (current) use of oral hypoglycemic drugs; Z88.0 Allergy status to penicillin; Z79.899 Other long term (current) drug therapy; Z79.82 Long term (current) use of aspirin; Z79.51 Long term (current) use of inhaled steroids; Z68.31 Body mass index [BMI] 31.0-31.9, adult; Z87.891 Personal history of nicotine dependence; Z82.5 Family history of asthma and other chronic lower respiratory diseases; Y92.89 Other specified places as the place of occurrence of the external cause; F10.10 Alcohol abuse, uncomplicated
CPT/HCPCS: 36415; 71045; 80048; 80053; 80061; 80076; 80305; 82962; 83036; 83880; 84439; 84443; 84481; 84484; 85025; 87426; 94640; 99285; J1815; J2920; J2930

== ENCOUNTER 2020-10-11 10:42 | Inpatient (IN) | payer MEDICAID ==
[~2020-10-11] VITALS: Ht 190.5 cm; Wt 107.5 kg
[~2020-10-11 10:42] MED LIST changes: -AMLO10TA80 MT; +AMLO10TA80 PO; +ATOR10TA69 MT; -ATOR20TA65 MT; +CLAR10 PO; -DIPH50CA38 MT; -IBUP-2030 MT; +L25 PO; +LISI10TA26 PO; +MONT10TA32 PO
[2020-10-11] MEDS ORDERED: METHYLPREDNISOLONE SOD SUCC 125 MG/2 ML VIAL IV STA (11:14)
[2020-10-11] MEDS ORDERED: IPRATROPIUM BROMIDE (0.02%) 0.5MG/2.5ML NEB HHN STA (11:14)
[2020-10-11] MEDS: ALBUTEROL (0.083%) 2.5MG/3ML NEB HHN SCH (12:35)
[2020-10-11 12:51] LABS: BASOPHILS % 0.7 % (0.0-2.0); EOSINOPHILS % 11.4 % (0.0-5.0); HEMATOCRIT. 39.7 % (42.0-52.0); HEMOGLOBIN. 13.3 g/dL (14.0-18.0); LYMPHOCYTES % 24.4 % (20.0-50.0); MEAN CORPUSCULAR HEMOGLOBIN 31.7 pg (28.0-32.0); MEAN CORPUSCULAR VOLUME 94.9 fL (80.0-94.0); MEAN PLATELET VOLUME 8.5 fl (7.4-10.4); MONOCYTES % 10.3 % (2.0-8.0); NEUTROPHILS % 53.2 % (40.0-76.0); PLATELET 197 x1000/uL (130-400); RED BLOOD CELL COUNT 4.19 mill/uL (4.7-6.1); RED CELL DISTRIBUTION WIDTH 15.4 % (11.6-14.6)
[2020-10-11 12:53] LABS: CHLORIDE 108 mEq/L (98-107)
[2020-10-11] MEDS ORDERED: FUROSEMIDE 40MG/4ML VIAL IVP NR (14:30)
[2020-10-11] MEDS ORDERED: ASPIRIN 81MG TABLET PO NR (14:30)
[2020-10-11] MEDS ORDERED: NITROGLYCERIN OINT 1GM/INCH UDPKT TD NR (14:30)
[2020-10-11] MEDS ORDERED: ALBUTEROL (0.083%) 2.5MG/3ML NEB HHN STA (14:33)
[2020-10-11] MEDS ORDERED: CLONIDINE 0.1MG TABLET PO PRN (18:00)
[2020-10-11] MEDS ORDERED: ONDANSETRON HCL 4MG/2ML INJ IV PRN (18:00)
[2020-10-11] MEDS ORDERED: HYDROCODONE/ACETAMINOPHEN 5/325MG TABLET PO PRN (18:00)
[2020-10-11] MEDS ORDERED: ACETAMINOPHEN 325MG TABLET PO PRN (18:00)
[2020-10-11] MEDS ORDERED: DOCUSATE SODIUM 100MG CAPSULE PO PRN (18:00)
[2020-10-11] MEDS ORDERED: MAGNESIUM/ALUMINUM HYDROXIDE/SIMETHICONE 30ML UDC PO PRN (18:00)
[2020-10-11 18:10] LABS: CLARITY URINE CLOUDY (CLEAR); COLOR URINE YELLOW (YELLOW); KETONES URINE TRACE (NEGATIVE); LEUKOCYTE ESTERASE URINE NEGATIVE (NEGATIVE); NITRITE URINE NEGATIVE (NEGATIVE); OCCULT BLOOD URINE TRACE (NEGATIVE); PH URINE 5.5 (4.5-8.0); PROTEIN URINE TRACE (NEGATIVE); SPECIFIC GRAVITY URINE 1.033 (1.005-1.030); UROBILINOGEN URINE 0.2 E.U./dL (0.2-1.0)
[2020-10-11] MEDS: ENOXAPARIN 30MG/0.3ML SYR SUBCUT SCH (20:46)
[2020-10-12] VITALS (7 sets, daily range): BP systolic 121–154; BP diastolic 64–104
[2020-10-12 06:52] LABS: BASOPHILS % 0.6 % (0.0-2.0); EOSINOPHILS % 0.2 % (0.0-5.0); HEMATOCRIT. 37.5 % (42.0-52.0); HEMOGLOBIN. 12.5 g/dL (14.0-18.0); LYMPHOCYTES % 15.5 % (20.0-50.0); MEAN CORPUSCULAR HEMOGLOBIN 31.2 pg (28.0-32.0); MEAN CORPUSCULAR VOLUME 93.7 fL (80.0-94.0); MEAN PLATELET VOLUME 8.5 fl (7.4-10.4); MONOCYTES % 8.7 % (2.0-8.0); PLATELET 215 x1000/uL (130-400)
[2020-10-12 06:58] LABS: CHLORIDE 103 mEq/L (98-107)
[2020-10-12 07:08] LABS: PHOSPHORUS 2.7 mg/dL (2.5-4.9)
[2020-10-12 07:09] LABS: LDL CHOLESTEROL 60 mg/dL (5-100)
[2020-10-12 07:10] LABS: CREATINE KINASE MB FRACTION 2.1 ng/mL (0.5-3.6)
[2020-10-12 07:11] LABS: HDL CHOLESTEROL 92 mg/dL (40-59)
[2020-10-12] MEDS: PANTOPRAZOLE SODIUM 40 MG/VIAL IV SCH (08:58)
[2020-10-12] MEDS: ENOXAPARIN 30MG/0.3ML SYR SUBCUT SCH ×2 (08:58→23:08)
[2020-10-12] MEDS: DILTIAZEM HCL 30MG TABLET PO SCH ×2 (13:49→23:00)
[2020-10-12] MEDS: LISINOPRIL 10MG TABLET PO SCH (16:29)
[2020-10-12] MEDS: ASPIRIN 81MG EC TABLET PO SCH (16:29)
[2020-10-12] MEDS: BENZONATATE 100MG CAPSULE PO PRN (16:46)
[2020-10-12] MEDS: IPRATROPIUM/ALBUTEROL 0.5-3(2.5)MG/3ML NEB HHN PRN ×2 (17:05→21:39)
[2020-10-12] MEDS: METFORMIN HCL 500MG TABLET PO SCH (17:30)
[2020-10-12] MEDS: GLIMEPIRIDE 2MG TABLET PO SCH (17:31)
[2020-10-12] MEDS: METHYLPREDNISOLONE SOD SUCC 40 MG/ML VIAL IV SCH (23:01)
[2020-10-12] MEDS: ATORVASTATIN CALCIUM 10MG TABLET PO SCH (23:01)
[2020-10-13 00:12] VITALS: BP 135/93
[2020-10-13 04:00] VITALS: BP 148/107
[2020-10-13] MEDS: METHYLPREDNISOLONE SOD SUCC 40 MG/ML VIAL IV SCH ×3 (04:24→20:25)
[2020-10-13] MEDS: BENZONATATE 100MG CAPSULE PO PRN (04:48)
[2020-10-13] MEDS: DILTIAZEM HCL 30MG TABLET PO SCH (05:37)
[2020-10-13] MEDS: GLIMEPIRIDE 2MG TABLET PO SCH (06:21)
[2020-10-13 08:00] VITALS: BP 147/97
[2020-10-13] MEDS: FUROSEMIDE 40MG/4ML VIAL IV SCH (08:36)
[2020-10-13] MEDS: METFORMIN HCL 500MG TABLET PO SCH ×2 (08:37→16:51)
[2020-10-13] MEDS: CHLORTHALIDONE 25MG TABLET PO SCH (08:37)
[2020-10-13] MEDS: PANTOPRAZOLE SODIUM 40 MG/VIAL IV SCH (08:37)
[2020-10-13] MEDS: ASPIRIN 81MG EC TABLET PO SCH (08:37)
[2020-10-13] MEDS: LISINOPRIL 10MG TABLET PO SCH (08:37)
[2020-10-13] MEDS: ENOXAPARIN 30MG/0.3ML SYR SUBCUT SCH ×2 (08:39→20:25)
[2020-10-13 12:00] VITALS: BP 143/99
[2020-10-13] MEDS: DILTIAZEM HCL 60MG TABLET PO SCH ×2 (13:02→22:58)
[2020-10-13 16:00] VITALS: BP 132/86
[2020-10-13 17:16] LABS: BASOPHILS % 0.8 % (0.0-2.0); HEMATOCRIT. 43.1 % (42.0-52.0); HEMOGLOBIN. 14.6 g/dL (14.0-18.0); LYMPHOCYTES % 9.3 % (20.0-50.0); MEAN CORPUSCULAR HEMOGLOBIN 31.9 pg (28.0-32.0); MEAN PLATELET VOLUME 8.9 fl (7.4-10.4); MONOCYTES % 0.9 % (2.0-8.0); PLATELET 257 x1000/uL (130-400); RED BLOOD CELL COUNT 4.58 mill/uL (4.7-6.1); RED CELL DISTRIBUTION WIDTH 15.1 % (11.6-14.6)
[2020-10-13 17:45] LABS: CHLORIDE 99 mEq/L (98-107)
[2020-10-13 17:54] LABS: T4 FREE 1.01 ng/dL (0.76-1.46)
[2020-10-13] MEDS: IPRATROPIUM/ALBUTEROL 0.5-3(2.5)MG/3ML NEB HHN PRN (19:53)
[2020-10-13 20:00] VITALS: BP 119/85
[2020-10-13] MEDS: ATORVASTATIN CALCIUM 10MG TABLET PO SCH (20:22)
[2020-10-14] VITALS: BP 139/73
[2020-10-14] MEDS: IPRATROPIUM/ALBUTEROL 0.5-3(2.5)MG/3ML NEB HHN PRN ×2 (00:32→04:36)
[2020-10-14] MEDS: BENZONATATE 100MG CAPSULE PO PRN (02:06)
[2020-10-14 04:00] VITALS: BP 124/81
[2020-10-14] MEDS: METHYLPREDNISOLONE SOD SUCC 40 MG/ML VIAL IV SCH ×2 (04:47→13:09)
[2020-10-14] MEDS: GLIMEPIRIDE 2MG TABLET PO SCH (06:20)
[2020-10-14] MEDS: DILTIAZEM HCL 60MG TABLET PO SCH ×2 (06:20→13:09)
[2020-10-14 08:00] VITALS: BP 128/80
[2020-10-14] MEDS: CHLORTHALIDONE 25MG TABLET PO SCH (09:04)
[2020-10-14] MEDS: ASPIRIN 81MG EC TABLET PO SCH (09:04)
[2020-10-14] MEDS: METFORMIN HCL 500MG TABLET PO SCH (09:04)
[2020-10-14] MEDS: PANTOPRAZOLE SODIUM 40 MG/VIAL IV SCH (09:05)
[2020-10-14] MEDS: LISINOPRIL 10MG TABLET PO SCH (09:05)
[2020-10-14] MEDS: FUROSEMIDE 40MG/4ML VIAL IV SCH (09:05)
[2020-10-14] MEDS: ENOXAPARIN 30MG/0.3ML SYR SUBCUT SCH (09:05)
[2020-10-14] MEDS ORDERED: PROP50TA3 MT (09:58)
[2020-10-14] MEDS ORDERED: AMLO10TA80 PO (09:58)
[2020-10-14] MEDS ORDERED: ALBU18HF2 IH (09:58)
[2020-10-14] MEDS ORDERED: CLAR10 PO (09:58)
[2020-10-14] MEDS ORDERED: AMA2 MT (09:58)
[2020-10-14] MEDS ORDERED: ATOR10TA69 MT (09:58)
[2020-10-14] MEDS ORDERED: LISI10TA26 PO (09:58)
[2020-10-14] MEDS ORDERED: FLUT1DIS3 INH (09:58)
[2020-10-14] MEDS ORDERED: ASPI-1406 MT (09:58)
[2020-10-14] MEDS ORDERED: MONT10TA32 PO (09:58)
[2020-10-14] MEDS ORDERED: METF750T46 MT (09:58)
[2020-10-14] MEDS ORDERED: CHLO25TA2 MT (09:58)
[2020-10-14] MEDS ORDERED: LANS30CA55 MT (09:58)
[2020-10-14 12:00] VITALS: BP 132/78
[2020-10-14 14:12] VITALS: BP 132/78
== END 2020-10-14 14:30 | disposition home or self-care (01) | DRG 194 ==
LOC: ER 10:42 → ENRESERV 21:47 → 5WST 23:29
PROVIDERS: ADMIT Internal Medicine; ATTEND Internal Medicine
DX: I11.0 Hypertensive heart disease with heart failure (principal); J96.00 Acute respiratory failure, unspecified whether with hypoxia or hypercapnia; J44.1 Chronic obstructive pulmonary disease with (acute) exacerbation; I42.9 Cardiomyopathy, unspecified; D64.9 Anemia, unspecified; E11.9 Type 2 diabetes mellitus without complications; I50.33 Acute on chronic diastolic (congestive) heart failure; F14.10 Cocaine abuse, uncomplicated; F10.21 Alcohol dependence, in remission; K21.9 Gastro-esophageal reflux disease without esophagitis; Z20.822 Contact with and (suspected) exposure to COVID-19; Z59.0 Homelessness; Z79.84 Long term (current) use of oral hypoglycemic drugs; Z82.49 Family history of ischemic heart disease and other diseases of the circulatory system; Z82.5 Family history of asthma and other chronic lower respiratory diseases; Z87.820 Personal history of traumatic brain injury; Z87.891 Personal history of nicotine dependence; Z88.0 Allergy status to penicillin; Z88.1 Allergy status to other antibiotic agents; Z71.41 Alcohol abuse counseling and surveillance of alcoholic
CPT/HCPCS: 36415; 71045; 76536; 80048; 80053; 80061; 80076; 81003; 82553; 83735; 83880; 84100; 84439; 84443; 84480; 84484; 85025; 93005; 93306; 93970; 94640; 99291; C9113; C9803; J1650; J1940; J2920; J2930; J7040; U0003; U0005

== ENCOUNTER 2020-12-29 13:35 | Emergency (ER) | payer MEDICAID ==
[~2020-12-29] VITALS: Ht 191.8 cm; Wt 107.0 kg
[~2020-12-29 13:35] MED LIST changes: +CARV6.2548 MT; +FAMO20TA8 PO; +FURO40TA5 MT; -IPRA3AMP9 NEB; -L25 PO; -LANS30CA55 MT; -SITA100T11 MT
[2020-12-29] MEDS ORDERED: ALBUTEROL (0.083%) 2.5MG/3ML NEB HHN ONE ×2 (14:30→15:30)
[2020-12-29] MEDS ORDERED: PREDNISONE 20MG TABLET PO ONE (14:30)
[2020-12-29 16:14] VITALS: BP 139/77
[2020-12-29] MEDS ORDERED: P20 PO (16:15)
[2020-12-29] MEDS ORDERED: ALBU18HF2 IH (16:15)
== END 2020-12-29 16:29 | disposition home or self-care (01) ==
LOC: ER 13:47
DX: J44.1 Chronic obstructive pulmonary disease with (acute) exacerbation (principal); E78.00 Pure hypercholesterolemia, unspecified; I10 Essential (primary) hypertension; Z79.899 Other long term (current) drug therapy; Z88.0 Allergy status to penicillin
CPT/HCPCS: 71045; 94640; 99284; J7512; Z7610

== ENCOUNTER 2021-01-04 13:20 | Inpatient (IN) | payer MEDICAID ==
[~2021-01-04] VITALS: Ht 190.5 cm; Wt 105.4 kg
[~2021-01-04 13:20] MED LIST changes: +P20 PO
[2021-01-04] MEDS ORDERED: ALBUTEROL (0.083%) 2.5MG/3ML NEB HHN STA (13:44)
[2021-01-04] MEDS ORDERED: METHYLPREDNISOLONE SOD SUCC 125 MG/2 ML VIAL IV STA (13:44)
[2021-01-04] MEDS ORDERED: IPRATROPIUM BROMIDE (0.02%) 0.5MG/2.5ML NEB HHN STA (13:44)
[2021-01-04 14:39] LABS: BASOPHILS % 1.3 % (0.0-2.0); EOSINOPHILS % 13.9 % (0.0-5.0); HEMATOCRIT. 37.8 % (42.0-52.0); HEMOGLOBIN. 12.6 g/dL (14.0-18.0); LYMPHOCYTES % 33.2 % (20.0-50.0); MEAN CORPUSCULAR HEMOGLOBIN 31.5 pg (28.0-32.0); MEAN CORPUSCULAR VOLUME 94.4 fL (80.0-94.0); MEAN PLATELET VOLUME 8.4 fl (7.4-10.4); MONOCYTES % 11.9 % (2.0-8.0); NEUTROPHILS % 39.7 % (40.0-76.0); PLATELET 201 x1000/uL (130-400); RED CELL DISTRIBUTION WIDTH 15.9 % (11.6-14.6)
[2021-01-04 14:44] LABS: CHLORIDE 106 mEq/L (98-107)
[2021-01-04 17:32] LABS: CLARITY URINE CLEAR (CLEAR); COLOR URINE YELLOW (YELLOW); KETONES URINE TRACE (NEGATIVE); LEUKOCYTE ESTERASE URINE NEGATIVE (NEGATIVE); NITRITE URINE NEGATIVE (NEGATIVE); OCCULT BLOOD URINE NEGATIVE (NEGATIVE); PH URINE 5.5 (4.5-8.0); PROTEIN URINE NEGATIVE (NEGATIVE); SPECIFIC GRAVITY URINE 1.026 (1.005-1.030)
[2021-01-04] MEDS ORDERED: LORAZEPAM 0.5MG TABLET PO PRN (18:15)
[2021-01-04] MEDS ORDERED: HYDROCODONE/ACETAMINOPHEN 5/325MG TABLET PO PRN (18:15)
[2021-01-04] MEDS ORDERED: ACETAMINOPHEN 325MG TABLET PO PRN ×2 (18:15)
[2021-01-04] MEDS ORDERED: DOCUSATE SODIUM 100MG CAPSULE PO PRN (18:15)
[2021-01-04] MEDS ORDERED: ONDANSETRON HCL 4MG/2ML INJ IV PRN (18:15)
[2021-01-04] MEDS ORDERED: NALOXONE HCL 0.4MG/ML VIAL IV PRN (18:15)
[2021-01-04 21:30] VITALS: BP 127/90
[2021-01-04] MEDS: METHYLPREDNISOLONE SOD SUCC 40 MG/ML VIAL IV SCH (22:43)
[2021-01-04] MEDS: IPRATROPIUM/ALBUTEROL 0.5-3(2.5)MG/3ML NEB HHN PRN (22:44)
[2021-01-04 23:08] VITALS: BP 127/90
[2021-01-05] VITALS: BP 135/75
[2021-01-05] MEDS: IPRATROPIUM/ALBUTEROL 0.5-3(2.5)MG/3ML NEB HHN PRN ×2 (03:34→15:53)
[2021-01-05 04:00] VITALS: BP 162/92
[2021-01-05] MEDS: METHYLPREDNISOLONE SOD SUCC 40 MG/ML VIAL IV SCH ×3 (05:15→22:00)
[2021-01-05] MEDS: CLONIDINE 0.1MG TABLET PO PRN ×2 (05:58→12:20)
[2021-01-05 07:23] LABS: BASOPHILS % 0.1 % (0.0-2.0); HEMATOCRIT. 37.3 % (42.0-52.0); HEMOGLOBIN. 12.5 g/dL (14.0-18.0); LYMPHOCYTES % 13.7 % (20.0-50.0); MEAN CORPUSCULAR HEMOGLOBIN 31.7 pg (28.0-32.0); MEAN CORPUSCULAR VOLUME 94.5 fL (80.0-94.0); MEAN PLATELET VOLUME 8.3 fl (7.4-10.4); MONOCYTES % 3.1 % (2.0-8.0); NEUTROPHILS % 83.1 % (40.0-76.0); PLATELET 209 x1000/uL (130-400); RED BLOOD CELL COUNT 3.94 mill/uL (4.7-6.1); RED CELL DISTRIBUTION WIDTH 15.6 % (11.6-14.6)
[2021-01-05 07:35] LABS: CHLORIDE 106 mEq/L (98-107)
[2021-01-05 14:25] LABS: T4 FREE 0.93 ng/dL (0.76-1.46)
[2021-01-05] MEDS: ATORVASTATIN CALCIUM 10MG TABLET PO SCH (14:54)
[2021-01-05] MEDS: ASPIRIN 81MG EC TABLET PO SCH (14:54)
[2021-01-05] MEDS: AMLODIPINE 10MG TABLET PO SCH (14:54)
[2021-01-05] MEDS: LISINOPRIL 10MG TABLET PO SCH (14:55)
[2021-01-05] MEDS: FUROSEMIDE 40MG TABLET PO SCH (14:55)
[2021-01-05] MEDS: GLIMEPIRIDE 2MG TABLET PO SCH (17:01)
[2021-01-05] MEDS: LORATADINE 10MG TABLET PO SCH (17:01)
[2021-01-05] MEDS: CHLORTHALIDONE 25MG TABLET PO SCH (17:02)
[2021-01-05] MEDS: METFORMIN HCL 500MG TABLET PO SCH (17:02)
[2021-01-05] MEDS: MONTELUKAST SODIUM 10MG TABLET PO SCH (17:02)
[2021-01-05 20:00] VITALS: BP 145/98
[2021-01-05] MEDS: FAMOTIDINE 20MG TABLET PO SCH (21:00)
[2021-01-06] VITALS: BP 153/89
[2021-01-06 04:00] VITALS: BP 157/87
[2021-01-06] MEDS: METHYLPREDNISOLONE SOD SUCC 40 MG/ML VIAL IV SCH ×3 (06:20→21:41)
[2021-01-06] MEDS: METFORMIN HCL 500MG TABLET PO SCH ×2 (06:20→16:34)
[2021-01-06] MEDS: GLIMEPIRIDE 2MG TABLET PO SCH (06:21)
[2021-01-06 08:00] VITALS: BP 143/104
[2021-01-06] MEDS: FUROSEMIDE 40MG TABLET PO SCH (09:46)
[2021-01-06] MEDS: LORATADINE 10MG TABLET PO SCH (09:46)
[2021-01-06] MEDS: ASPIRIN 81MG EC TABLET PO SCH (09:46)
[2021-01-06] MEDS: FAMOTIDINE 20MG TABLET PO SCH ×2 (09:47→21:41)
[2021-01-06] MEDS: LISINOPRIL 10MG TABLET PO SCH (09:47)
[2021-01-06] MEDS: ATORVASTATIN CALCIUM 10MG TABLET PO SCH (09:47)
[2021-01-06] MEDS: AMLODIPINE 10MG TABLET PO SCH (09:47)
[2021-01-06] MEDS: CHLORTHALIDONE 25MG TABLET PO SCH (09:47)
[2021-01-06 10:39] LABS: BASOPHILS % 0.1 % (0.0-2.0); EOSINOPHILS % 0.1 % (0.0-5.0); HEMATOCRIT. 37.8 % (42.0-52.0); HEMOGLOBIN. 12.9 g/dL (14.0-18.0); LYMPHOCYTES % 7.2 % (20.0-50.0); MEAN CORPUSCULAR HEMOGLOBIN 31.8 pg (28.0-32.0); MEAN CORPUSCULAR VOLUME 93.2 fL (80.0-94.0); MEAN PLATELET VOLUME 8.5 fl (7.4-10.4); MONOCYTES % 4.8 % (2.0-8.0); NEUTROPHILS % 87.8 % (40.0-76.0); PLATELET 234 x1000/uL (130-400); RED BLOOD CELL COUNT 4.05 mill/uL (4.7-6.1); RED CELL DISTRIBUTION WIDTH 15.9 % (11.6-14.6)
[2021-01-06 11:20] LABS: CHLORIDE 102 mEq/L (98-107)
[2021-01-06 12:18] VITALS: BP 131/104
[2021-01-06 16:00] VITALS: BP 115/79
[2021-01-06] MEDS: MONTELUKAST SODIUM 10MG TABLET PO SCH (16:34)
[2021-01-06 19:18] LABS: *AMPHETAMINES SCREEN URINE NEGATIVE (NEGATIVE); *BARBITURATES SCREEN URINE NEGATIVE (NEGATIVE); *BENZODIAZEPINES SCREEN URINE NEGATIVE (NEGATIVE); *COCAINE SCREEN URINE NEGATIVE (NEGATIVE); METHADONE URINE SCREEN NEGATIVE (NEGATIVE); OPIATES URINE SCREEN NEGATIVE (NEGATIVE)
[2021-01-06 19:19] LABS: CANNABINOID URINE SCREEN NEGATIVE (NEGATIVE); PHENCYCLIDINE URINE SCREEN NEGATIVE (NEGATIVE)
[2021-01-06 20:00] VITALS: BP 117/85
[2021-01-06] MEDS: PROPYLTHIOURACIL 50MG TABLET PO SCH (21:41)
[2021-01-07] VITALS: BP_SYST 11; BP_SYST 111; BP_DIAS 80
[2021-01-07 04:00] VITALS: BP 124/80
[2021-01-07] MEDS: IPRATROPIUM/ALBUTEROL 0.5-3(2.5)MG/3ML NEB HHN PRN ×2 (04:06→22:56)
[2021-01-07] MEDS: GLIMEPIRIDE 2MG TABLET PO SCH (06:17)
[2021-01-07] MEDS: METHYLPREDNISOLONE SOD SUCC 40 MG/ML VIAL IV SCH ×3 (06:17→22:00)
[2021-01-07] MEDS: METFORMIN HCL 500MG TABLET PO SCH ×2 (06:17→16:52)
[2021-01-07 08:00] VITALS: BP 121/81
[2021-01-07 08:34] LABS: CHLORIDE 98 mEq/L (98-107)
[2021-01-07 08:36] LABS: BASOPHILS % 0.1 % (0.0-2.0); HEMOGLOBIN. 13.5 g/dL (14.0-18.0); LYMPHOCYTES % 11.5 % (20.0-50.0); MEAN CORPUSCULAR HEMOGLOBIN 31.1 pg (28.0-32.0); MEAN CORPUSCULAR VOLUME 93.9 fL (80.0-94.0); MEAN PLATELET VOLUME 9.5 fl (7.4-10.4); NEUTROPHILS % 79.4 % (40.0-76.0); PLATELET 252 x1000/uL (130-400); RED BLOOD CELL COUNT 4.36 mill/uL (4.7-6.1); RED CELL DISTRIBUTION WIDTH 16.2 % (11.6-14.6)
[2021-01-07] MEDS: AMLODIPINE 10MG TABLET PO SCH (08:36)
[2021-01-07] MEDS: ASPIRIN 81MG EC TABLET PO SCH (08:36)
[2021-01-07] MEDS: FAMOTIDINE 20MG TABLET PO SCH ×2 (08:37→21:59)
[2021-01-07] MEDS: LORATADINE 10MG TABLET PO SCH (08:37)
[2021-01-07] MEDS: FUROSEMIDE 40MG TABLET PO SCH (08:37)
[2021-01-07] MEDS: PROPYLTHIOURACIL 50MG TABLET PO SCH ×2 (08:37→16:52)
[2021-01-07] MEDS: LISINOPRIL 10MG TABLET PO SCH (08:37)
[2021-01-07] MEDS: ATORVASTATIN CALCIUM 10MG TABLET PO SCH (08:37)
[2021-01-07] MEDS: CHLORTHALIDONE 25MG TABLET PO SCH (08:37)
[2021-01-07 12:26] VITALS: BP 135/70
[2021-01-07 16:00] VITALS: BP 103/78
[2021-01-07] MEDS: MONTELUKAST SODIUM 10MG TABLET PO SCH (16:52)
[2021-01-07 20:00] VITALS: BP 115/76
[2021-01-08] VITALS: BP 105/67
[2021-01-08] MEDS: IPRATROPIUM/ALBUTEROL 0.5-3(2.5)MG/3ML NEB HHN PRN (02:10)
[2021-01-08 04:00] VITALS: BP 122/83
[2021-01-08] MEDS: METHYLPREDNISOLONE SOD SUCC 40 MG/ML VIAL IV SCH ×2 (06:00→13:10)
[2021-01-08] MEDS: METFORMIN HCL 500MG TABLET PO SCH (06:48)
[2021-01-08] MEDS: GLIMEPIRIDE 2MG TABLET PO SCH (06:49)
[2021-01-08 08:00] VITALS: BP 141/92
[2021-01-08 09:30] LABS: BASOPHILS % 0.1 % (0.0-2.0); HEMATOCRIT. 39.5 % (42.0-52.0); LYMPHOCYTES % 9.6 % (20.0-50.0); MEAN CORPUSCULAR HEMOGLOBIN 31.3 pg (28.0-32.0); MEAN PLATELET VOLUME 8.7 fl (7.4-10.4); MONOCYTES % 3.8 % (2.0-8.0); NEUTROPHILS % 86.5 % (40.0-76.0); PLATELET 238 x1000/uL (130-400); RED BLOOD CELL COUNT 4.16 mill/uL (4.7-6.1); RED CELL DISTRIBUTION WIDTH 16.2 % (11.6-14.6)
[2021-01-08 09:40] LABS: CHLORIDE 100 mEq/L (98-107)
[2021-01-08] MEDS: CHLORTHALIDONE 25MG TABLET PO SCH (10:16)
[2021-01-08] MEDS: ATORVASTATIN CALCIUM 10MG TABLET PO SCH (10:16)
[2021-01-08] MEDS: LISINOPRIL 10MG TABLET PO SCH (10:16)
[2021-01-08] MEDS: PROPYLTHIOURACIL 50MG TABLET PO SCH (10:16)
[2021-01-08] MEDS: LORATADINE 10MG TABLET PO SCH (10:16)
[2021-01-08] MEDS: FAMOTIDINE 20MG TABLET PO SCH (10:16)
[2021-01-08] MEDS: FUROSEMIDE 40MG TABLET PO SCH (10:16)
[2021-01-08] MEDS: ASPIRIN 81MG EC TABLET PO SCH (10:17)
[2021-01-08] MEDS: AMLODIPINE 10MG TABLET PO SCH (10:17)
[2021-01-08 11:05] VITALS: BP_SYST 127; BP_SYST 141; BP_DIAS 77; BP_DIAS 92
[2021-01-08 12:00] VITALS: BP 127/77
[2021-01-08] MEDS ORDERED: FLUT1DIS3 INH (12:32)
[2021-01-08] MEDS ORDERED: CHLO25TA2 MT (12:32)
[2021-01-08] MEDS ORDERED: AMLO10TA80 PO (12:32)
[2021-01-08] MEDS ORDERED: FURO40TA5 MT (12:32)
[2021-01-08] MEDS ORDERED: LISI10TA26 PO (12:32)
[2021-01-08] MEDS ORDERED: MONT10TA32 PO (12:32)
[2021-01-08] MEDS ORDERED: AMA2 MT (12:32)
[2021-01-08] MEDS ORDERED: MED4 MT (12:32)
[2021-01-08] MEDS ORDERED: ASPI-1406 MT (12:32)
[2021-01-08] MEDS ORDERED: ATOR10TA69 MT (12:32)
[2021-01-08] MEDS ORDERED: METF750T46 MT (12:32)
[2021-01-08] MEDS ORDERED: IPRA3AMP9 HHN (12:32)
[2021-01-08] MEDS ORDERED: ALBU18HF2 IH (12:32)
[2021-01-08] MEDS ORDERED: PROP50TA3 MT (12:32)
== END 2021-01-08 14:30 | disposition home or self-care (01) | DRG 140 ==
LOC: ER 13:20 → 7EST 14:20 → EDBEDREQ 14:30 → ENRESERV 19:57
PROVIDERS: ADMIT Internal Medicine; ATTEND Internal Medicine
DX: J44.1 Chronic obstructive pulmonary disease with (acute) exacerbation (principal); J96.00 Acute respiratory failure, unspecified whether with hypoxia or hypercapnia; I33.0 Acute and subacute infective endocarditis; D72.10 Eosinophilia, unspecified; D64.9 Anemia, unspecified; E11.9 Type 2 diabetes mellitus without complications; E21.3 Hyperparathyroidism, unspecified; I50.42 Chronic combined systolic (congestive) and diastolic (congestive) heart failure; I11.0 Hypertensive heart disease with heart failure; T59.91XA Toxic effect of unspecified gases, fumes and vapors, accidental (unintentional), initial encounter; Z20.822 Contact with and (suspected) exposure to COVID-19; E78.5 Hyperlipidemia, unspecified; F19.90 Other psychoactive substance use, unspecified, uncomplicated; E78.00 Pure hypercholesterolemia, unspecified; Z82.49 Family history of ischemic heart disease and other diseases of the circulatory system; Z82.5 Family history of asthma and other chronic lower respiratory diseases; Z87.891 Personal history of nicotine dependence; Z79.51 Long term (current) use of inhaled steroids; Z88.0 Allergy status to penicillin; Z88.1 Allergy status to other antibiotic agents; Y92.89 Other specified places as the place of occurrence of the external cause
CPT/HCPCS: 36415; 71045; 80048; 80076; 80305; 81003; 83605; 84145; 84439; 84443; 84481; 84484; 85025; 87426; 93005; 94640; 94644; 99285; J2920; J2930

== ENCOUNTER 2021-01-23 18:44 | Inpatient (IN) | payer MEDICAID ==
[~2021-01-23] VITALS: Ht 190.5 cm; Wt 106.6 kg
[~2021-01-23 18:44] MED LIST changes: -CARV6.2548 MT; +IPRA3AMP9 HHN; +MED4 MT; -P20 MT; -P20 PO
[2021-01-23] MEDS ORDERED: IPRATROPIUM BROMIDE (0.02%) 0.5MG/2.5ML NEB HHN STA (19:19)
[2021-01-23] MEDS ORDERED: ALBUTEROL (0.083%) 2.5MG/3ML NEB HHN STA (19:19)
[2021-01-23] MEDS ORDERED: PREDNISONE 20MG TABLET PO STA (19:19)
[2021-01-23] MEDS ORDERED: P20 MT (19:37)
[2021-01-23] MEDS ORDERED: ALBU6.7H9 INH (19:37)
[2021-01-23] MEDS ORDERED: ASPIRIN 325MG EC TABLET PO ONE (21:00)
[2021-01-23] MEDS ORDERED: LEVOFLOXACIN 750MG PREMIX 150 ML IV ONE (21:00)
[2021-01-23 21:19] LABS: BASOPHILS % 0.8 % (0.0-2.0); EOSINOPHILS % 6.6 % (0.0-5.0); HEMATOCRIT. 36.8 % (42.0-52.0); HEMOGLOBIN. 12.5 g/dL (14.0-18.0); LYMPHOCYTES % 22.8 % (20.0-50.0); MEAN CORPUSCULAR HEMOGLOBIN 31.8 pg (28.0-32.0); MEAN CORPUSCULAR VOLUME 93.6 fL (80.0-94.0); MEAN PLATELET VOLUME 7.9 fl (7.4-10.4); MONOCYTES % 10.7 % (2.0-8.0); NEUTROPHILS % 59.1 % (40.0-76.0); PLATELET 212 x1000/uL (130-400); RED BLOOD CELL COUNT 3.93 mill/uL (4.7-6.1); RED CELL DISTRIBUTION WIDTH 15.4 % (11.6-14.6)
[2021-01-23 21:26] LABS: CHLORIDE 101 mEq/L (98-107)
[2021-01-23] MEDS ORDERED: POTASSIUM CHLORIDE 20MEQ TABLET SR PO ONE (21:45)
[2021-01-24 01:00] VITALS: BP 115/73
[2021-01-24 04:00] VITALS: BP 105/73
[2021-01-24] MEDS: ALBUTEROL 6.7GM HFA INHALER ORI SCH ×3 (06:00→17:28)
[2021-01-24] MEDS: METHYLPREDNISOLONE SOD SUCC 40 MG/ML VIAL IV SCH ×3 (06:58→21:15)
[2021-01-24 08:00] VITALS: BP 100/63
[2021-01-24] MEDS ORDERED: AMLODIPINE 10MG TABLET PO SCH (09:00)
[2021-01-24 12:00] VITALS: BP 128/89
[2021-01-24] MEDS: ENOXAPARIN 40MG/0.4ML SYR SUBCUT SCH (12:00)
[2021-01-24 12:27] LABS: *AMPHETAMINES SCREEN URINE NEGATIVE (NEGATIVE); *BARBITURATES SCREEN URINE NEGATIVE (NEGATIVE)
[2021-01-24 12:28] LABS: *BENZODIAZEPINES SCREEN URINE NEGATIVE (NEGATIVE); *COCAINE SCREEN URINE PRESUMTIVE POSITIVE (NEGATIVE); CANNABINOID URINE SCREEN NEGATIVE (NEGATIVE); METHADONE URINE SCREEN NEGATIVE (NEGATIVE); OPIATES URINE SCREEN NEGATIVE (NEGATIVE); PHENCYCLIDINE URINE SCREEN NEGATIVE (NEGATIVE)
[2021-01-24 16:00] VITALS: BP 111/79
[2021-01-24 20:00] VITALS: BP 133/90
[2021-01-24] MEDS: IPRATROPIUM/ALBUTEROL 0.5-3(2.5)MG/3ML NEB HHN PRN (20:26)
[2021-01-24] MEDS ORDERED: LEVOFLOXACIN 500MG PREMIX 100 ML IV SCH (21:00)
[2021-01-25] VITALS: BP 130/83
[2021-01-25] MEDS: ALBUTEROL 6.7GM HFA INHALER ORI SCH ×3 (00:29→11:40)
[2021-01-25 04:00] VITALS: BP 127/90
[2021-01-25] MEDS: METHYLPREDNISOLONE SOD SUCC 40 MG/ML VIAL IV SCH (05:29)
[2021-01-25 08:00] VITALS: BP 134/93
[2021-01-25] MEDS: ENOXAPARIN 40MG/0.4ML SYR SUBCUT SCH (08:47)
[2021-01-25] MEDS ORDERED: LOSARTAN POTASSIUM 25 MG TABLET PO SCH (09:00)
[2021-01-25 12:00] VITALS: BP 128/89
[2021-01-25] MEDS ORDERED: PANTOPRAZOLE 40MG DR TABLET PO SCH (12:15)
[2021-01-25] MEDS: IPRATROPIUM/ALBUTEROL 0.5-3(2.5)MG/3ML NEB HHN PRN (12:58)
[2021-01-25] MEDS ORDERED: MICO29.5 TP (13:52)
[2021-01-25] MEDS ORDERED: ALBU18HF2 IH (13:52)
[2021-01-25 14:04] VITALS: BP 128/89
== END 2021-01-25 14:30 | disposition home or self-care (01) | DRG 140 ==
LOC: ER 19:12 → 7WST 21:45 → ENRESERV 22:12 → 6EST 01-24 16:15
PROVIDERS: ADMIT Internal Medicine; ATTEND Internal Medicine
DX: J44.1 Chronic obstructive pulmonary disease with (acute) exacerbation (principal); N17.0 Acute kidney failure with tubular necrosis; E44.1 Mild protein-calorie malnutrition; I42.9 Cardiomyopathy, unspecified; I50.22 Chronic systolic (congestive) heart failure; I11.0 Hypertensive heart disease with heart failure; E78.5 Hyperlipidemia, unspecified; E87.6 Hypokalemia; E16.2 Hypoglycemia, unspecified; D64.9 Anemia, unspecified; F17.210 Nicotine dependence, cigarettes, uncomplicated; Z20.822 Contact with and (suspected) exposure to COVID-19; Z88.0 Allergy status to penicillin; Z88.1 Allergy status to other antibiotic agents; Z82.49 Family history of ischemic heart disease and other diseases of the circulatory system; Z82.5 Family history of asthma and other chronic lower respiratory diseases; Z68.29 Body mass index [BMI] 29.0-29.9, adult; Z79.899 Other long term (current) drug therapy; Z71.6 Tobacco abuse counseling; Z71.51 Drug abuse counseling and surveillance of drug abuser
CPT/HCPCS: 36415; 71045; 80053; 80305; 82962; 83605; 83880; 84484; 85025; 93005; 94640; 94644; 99285; J1650; J1956; J2920; J7512; U0003; U0005

== ENCOUNTER 2021-02-05 15:26 | Inpatient (IN) | payer MEDICAID ==
[~2021-02-05] VITALS: Ht 190.5 cm; Wt 108.0 kg
[~2021-02-05 15:26] MED LIST changes: +ALBU6.7H9 INH; +MICO29.5 TP; +P20 MT
[2021-02-05] MEDS ORDERED: IPRATROPIUM BROMIDE (0.02%) 0.5MG/2.5ML NEB HHN STA (16:25)
[2021-02-05] MEDS ORDERED: ALBUTEROL (0.083%) 2.5MG/3ML NEB HHN STA (16:25)
[2021-02-05] MEDS ORDERED: NITROGLYCERIN OINT 1GM/INCH UDPKT TD ONE (16:30)
[2021-02-05] MEDS ORDERED: ASPIRIN 81MG TABLET PO ONE (16:30)
[2021-02-05 17:10] LABS: CHLORIDE 101 mEq/L (98-107)
[2021-02-05 17:12] LABS: BASOPHILS % 1.2 % (0.0-2.0); HEMATOCRIT. 37.2 % (42.0-52.0); HEMOGLOBIN. 12.6 g/dL (14.0-18.0); LYMPHOCYTES % 27.4 % (20.0-50.0); MEAN CORPUSCULAR HEMOGLOBIN 31.7 pg (28.0-32.0); MEAN CORPUSCULAR VOLUME 93.8 fL (80.0-94.0); MEAN PLATELET VOLUME 7.8 fl (7.4-10.4); MONOCYTES % 9.5 % (2.0-8.0); NEUTROPHILS % 50.9 % (40.0-76.0); PLATELET 236 x1000/uL (130-400); RED BLOOD CELL COUNT 3.96 mill/uL (4.7-6.1); RED CELL DISTRIBUTION WIDTH 15.4 % (11.6-14.6)
[2021-02-05] MEDS ORDERED: DEXTROSE 50% WATER 50ML SYRINGE IV NR (17:45)
[2021-02-05] MEDS ORDERED: LEVOFLOXACIN 750MG PREMIX 150 ML IV ONE (18:30)
[2021-02-05] MEDS ORDERED: ACETAMINOPHEN 325MG TABLET PO PRN (20:00)
[2021-02-05] MEDS ORDERED: LORAZEPAM 2MG/ML CPJ IV PRN (20:00)
[2021-02-05] MEDS ORDERED: ONDANSETRON HCL 4MG/2ML INJ IV PRN (20:00)
[2021-02-05] MEDS ORDERED: MAGNESIUM/ALUMINUM HYDROXIDE/SIMETHICONE 30ML UDC PO PRN (20:00)
[2021-02-05] MEDS ORDERED: HYDROCODONE/ACETAMINOPHEN 5/325MG TABLET PO PRN (20:00)
[2021-02-05] MEDS ORDERED: MORPHINE SULFATE 2 MG/ML CPJ (NOT FOR IM USE) IV PRN (20:00)
[2021-02-05] MEDS ORDERED: CLONIDINE 0.1MG TABLET PO PRN (20:00)
[2021-02-05] MEDS ORDERED: DOCUSATE SODIUM 100MG CAPSULE PO PRN (20:00)
[2021-02-05] MEDS ORDERED: DIPHENHYDRAMINE 50MG/ML VIAL IV PRN (20:00)
[2021-02-05] MEDS ORDERED: HYDRALAZINE 20MG/ML VIAL IV PRN (20:00)
[2021-02-05] MEDS: GUAIFENESIN 200MG/10ML SUGAR FREE UDC PO PRN (21:57)
[2021-02-05] MEDS: SODIUM CHLORIDE 0.9% INJ 3ML FLUSH IVF SCH (22:10)
[2021-02-05] MEDS: ENOXAPARIN 40MG/0.4ML SYR SUBCUT SCH (22:12)
[2021-02-05 22:57] LABS: CREATINE KINASE 111 IU/L (39-308)
[2021-02-05 22:58] LABS: CREATINE KINASE MB FRACTION 1.2 ng/mL (0.5-3.6)
[2021-02-06 02:45] VITALS: BP 99/80
[2021-02-06] MEDS: IPRATROPIUM/ALBUTEROL 0.5-3(2.5)MG/3ML NEB HHN PRN ×2 (03:23→11:35)
[2021-02-06 04:00] VITALS: BP 110/72
[2021-02-06] MEDS: SODIUM CHLORIDE 0.9% INJ 3ML FLUSH IVF SCH ×3 (04:48→21:11)
[2021-02-06] MEDS: GUAIFENESIN 200MG/10ML SUGAR FREE UDC PO PRN ×2 (06:16→23:28)
[2021-02-06 08:00] VITALS: BP 129/79
[2021-02-06 12:00] VITALS: BP 127/89
[2021-02-06] MEDS ORDERED: NALOXONE HCL 0.4MG/ML VIAL IV PRN (12:15)
[2021-02-06] MEDS: LORATADINE 10MG TABLET PO SCH (12:48)
[2021-02-06] MEDS: METHYLPREDNISOLONE SOD SUCC 40 MG/ML VIAL IV SCH ×2 (12:48→21:09)
[2021-02-06 12:50] LABS: BASOPHILS % 1.2 % (0.0-2.0); EOSINOPHILS % 9.4 % (0.0-5.0); HEMATOCRIT. 36.2 % (42.0-52.0); HEMOGLOBIN. 12.6 g/dL (14.0-18.0); MEAN CORPUSCULAR HEMOGLOBIN 32.6 pg (28.0-32.0); MEAN PLATELET VOLUME 7.9 fl (7.4-10.4); MONOCYTES % 9.8 % (2.0-8.0); NEUTROPHILS % 52.6 % (40.0-76.0); PLATELET 218 x1000/uL (130-400); RED BLOOD CELL COUNT 3.85 mill/uL (4.7-6.1); RED CELL DISTRIBUTION WIDTH 15.4 % (11.6-14.6)
[2021-02-06 12:54] LABS: CHLORIDE 102 mEq/L (98-107)
[2021-02-06] MEDS ORDERED: IPRATROPIUM/ALBUTEROL 0.5-3(2.5)MG/3ML NEB HHN PRN (13:00)
[2021-02-06 13:05] LABS: CREATINE KINASE 111 IU/L (39-308)
[2021-02-06 13:10] LABS: CREATINE KINASE MB FRACTION 1.9 ng/mL (0.5-3.6)
[2021-02-06] MEDS: IPRATROPIUM/ALBUTEROL 0.5-3(2.5)MG/3ML NEB HHN SCH ×2 (15:18→22:00)
[2021-02-06] MEDS: MONTELUKAST SODIUM 10MG TABLET PO SCH (17:20)
[2021-02-06 18:59] LABS: CLARITY URINE CLEAR (CLEAR); COLOR URINE YELLOW (YELLOW); KETONES URINE NEGATIVE (NEGATIVE); LEUKOCYTE ESTERASE URINE NEGATIVE (NEGATIVE); NITRITE URINE NEGATIVE (NEGATIVE); OCCULT BLOOD URINE NEGATIVE (NEGATIVE); PH URINE >=9.0 (4.5-8.0); PROTEIN URINE NEGATIVE (NEGATIVE); SPECIFIC GRAVITY URINE 1.005 (1.005-1.030)
[2021-02-06 19:08] LABS: PHENCYCLIDINE URINE SCREEN NEGATIVE (NEGATIVE)
[2021-02-06 19:09] LABS: *AMPHETAMINES SCREEN URINE NEGATIVE (NEGATIVE); *BARBITURATES SCREEN URINE NEGATIVE (NEGATIVE); *BENZODIAZEPINES SCREEN URINE NEGATIVE (NEGATIVE); *COCAINE SCREEN URINE PRESUMTIVE POSITIVE (NEGATIVE); CANNABINOID URINE SCREEN NEGATIVE (NEGATIVE)
[2021-02-06 19:10] LABS: METHADONE URINE SCREEN NEGATIVE (NEGATIVE); OPIATES URINE SCREEN NEGATIVE (NEGATIVE)
[2021-02-06 20:00] VITALS: BP 100/86
[2021-02-06] MEDS ORDERED: LEVOFLOXACIN 500MG PREMIX 100 ML IV SCH (20:00)
[2021-02-06] MEDS: ENOXAPARIN 40MG/0.4ML SYR SUBCUT SCH (21:09)
[2021-02-06] MEDS: LEVOFLOXACIN 750MG PREMIX 150 ML IV SCH (21:22)
[2021-02-07] VITALS: BP 107/73
[2021-02-07] MEDS: IPRATROPIUM/ALBUTEROL 0.5-3(2.5)MG/3ML NEB HHN SCH ×6 (00:36→19:33)
[2021-02-07 04:00] VITALS: BP 143/83
[2021-02-07] MEDS: METHYLPREDNISOLONE SOD SUCC 40 MG/ML VIAL IV SCH ×3 (05:05→22:19)
[2021-02-07] MEDS: SODIUM CHLORIDE 0.9% INJ 3ML FLUSH IVF SCH ×3 (05:05→22:19)
[2021-02-07 08:00] VITALS: BP 108/69
[2021-02-07] MEDS: LORATADINE 10MG TABLET PO SCH (10:13)
[2021-02-07 12:00] VITALS: BP 131/79
[2021-02-07] MEDS: MONTELUKAST SODIUM 10MG TABLET PO SCH (16:28)
[2021-02-07 20:00] VITALS: BP 136/88
[2021-02-07 20:39] LABS: HEMATOCRIT. 35.4 % (42.0-52.0); HEMOGLOBIN. 12.1 g/dL (14.0-18.0); MEAN CORPUSCULAR HEMOGLOBIN 31.9 pg (28.0-32.0); MEAN CORPUSCULAR VOLUME 93.2 fL (80.0-94.0); MEAN PLATELET VOLUME 8.3 fl (7.4-10.4); PLATELET 281 x1000/uL (130-400); RED CELL DISTRIBUTION WIDTH 15.8 % (11.6-14.6)
[2021-02-07] MEDS: ENOXAPARIN 40MG/0.4ML SYR SUBCUT SCH (20:51)
[2021-02-07] MEDS: LEVOFLOXACIN 750MG PREMIX 150 ML IV SCH (20:51)
[2021-02-07 21:06] LABS: CHLORIDE 99 mEq/L (98-107)
[2021-02-07] MEDS ORDERED: IPRA3AMP9 HHN (22:18)
[2021-02-07] MEDS ORDERED: P20 MT (22:18)
[2021-02-07 22:20] LABS: PLATELET ESTIMATE NORMAL
[2021-02-08] VITALS: BP 128/76
[2021-02-08 04:00] VITALS: BP 129/70
[2021-02-08] MEDS: SODIUM CHLORIDE 0.9% INJ 3ML FLUSH IVF SCH (06:02)
[2021-02-08] MEDS: METHYLPREDNISOLONE SOD SUCC 40 MG/ML VIAL IV SCH (06:02)
[2021-02-08 08:00] VITALS: BP 140/77
[2021-02-08] MEDS: LORATADINE 10MG TABLET PO SCH (08:20)
[2021-02-08] MEDS: IPRATROPIUM/ALBUTEROL 0.5-3(2.5)MG/3ML NEB HHN SCH ×2 (10:01→12:55)
[2021-02-08 12:00] VITALS: BP 119/87
[2021-02-08 14:51] VITALS: BP 135/75
== END 2021-02-08 15:30 | disposition home or self-care (01) | DRG 133 ==
LOC: ER 15:26 → 8WST 18:28 → EDBEDREQTM 18:30 → EDBEDREQ 18:30 → CANRESERV 23:34 → ENRESERV 23:34
PROVIDERS: ADMIT Internal Medicine; ATTEND Internal Medicine
DX: J96.00 Acute respiratory failure, unspecified whether with hypoxia or hypercapnia (principal); D72.10 Eosinophilia, unspecified; E44.1 Mild protein-calorie malnutrition; J44.1 Chronic obstructive pulmonary disease with (acute) exacerbation; I11.9 Hypertensive heart disease without heart failure; E05.90 Thyrotoxicosis, unspecified without thyrotoxic crisis or storm; E78.00 Pure hypercholesterolemia, unspecified; E78.5 Hyperlipidemia, unspecified; Z82.49 Family history of ischemic heart disease and other diseases of the circulatory system; Z82.5 Family history of asthma and other chronic lower respiratory diseases; Z87.891 Personal history of nicotine dependence; Z68.29 Body mass index [BMI] 29.0-29.9, adult; Z88.0 Allergy status to penicillin; Z88.8 Allergy status to other drugs, medicaments and biological substances; Z79.899 Other long term (current) drug therapy
CPT/HCPCS: 36415; 71045; 80048; 80053; 80305; 81003; 82550; 82553; 82962; 83880; 84443; 84484; 85025; 93005; 93970; 94640; 99285; J1650; J1956; J2920

== ENCOUNTER 2021-02-22 17:37 | Inpatient (IN) | payer MEDICAID ==
[~2021-02-22] VITALS: Ht 190.5 cm; Wt 108.6 kg
[2021-02-22] MEDS: ALBUTEROL (0.083%) 2.5MG/3ML NEB HHN SCH ×3 (07:12→19:33)
[2021-02-22] MEDS ORDERED: IPRATROPIUM BROMIDE (0.02%) 0.5MG/2.5ML NEB HHN STA (17:51)
[2021-02-22] MEDS ORDERED: METHYLPREDNISOLONE SOD SUCC 125 MG/2 ML VIAL IV STA (17:51)
[2021-02-22 18:45] LABS: BASOPHILS % 0.3 % (0.0-2.0); EOSINOPHILS % 13.4 % (0.0-5.0); HEMATOCRIT. 36.7 % (42.0-52.0); HEMOGLOBIN. 12.4 g/dL (14.0-18.0); LYMPHOCYTES % 26.5 % (20.0-50.0); MEAN CORPUSCULAR HEMOGLOBIN 32.1 pg (28.0-32.0); MEAN CORPUSCULAR VOLUME 94.9 fL (80.0-94.0); MONOCYTES % 12.6 % (2.0-8.0); NEUTROPHILS % 47.2 % (40.0-76.0); PLATELET 249 x1000/uL (130-400); RED BLOOD CELL COUNT 3.87 mill/uL (4.7-6.1); RED CELL DISTRIBUTION WIDTH 15.1 % (11.6-14.6)
[2021-02-22 18:50] LABS: CHLORIDE 104 mEq/L (98-107)
[2021-02-23] MEDS ORDERED: ONDANSETRON HCL 4MG/2ML INJ IV PRN (09:15)
[2021-02-23] MEDS ORDERED: ACETAMINOPHEN 325MG TABLET PO PRN (09:15)
[2021-02-23] MEDS: METHYLPREDNISOLONE SOD SUCC 40 MG/ML VIAL IV SCH ×2 (10:07→18:00)
[2021-02-23] MEDS: LORAZEPAM 2MG/ML CPJ IV PRN (13:52)
[2021-02-23] MEDS ORDERED: HALOPERIDOL LACTATE 5MG/ML VIAL IM PRN (14:00)
[2021-02-23] MEDS: IPRATROPIUM/ALBUTEROL 0.5-3(2.5)MG/3ML NEB HHN SCH (19:43)
[2021-02-23] MEDS: FAMOTIDINE 20MG TABLET PO SCH (21:58)
[2021-02-23 22:06] VITALS: BP 129/82
[2021-02-24] VITALS: BP 129/82
[2021-02-24] MEDS: METHYLPREDNISOLONE SOD SUCC 40 MG/ML VIAL IV SCH ×3 (01:09→17:38)
[2021-02-24] MEDS: LORAZEPAM 2MG/ML CPJ IV PRN (01:09)
[2021-02-24] MEDS: IPRATROPIUM/ALBUTEROL 0.5-3(2.5)MG/3ML NEB HHN SCH ×6 (02:00→21:15)
[2021-02-24 04:00] VITALS: BP 120/70
[2021-02-24 08:00] VITALS: BP 128/92
[2021-02-24 16:00] VITALS: BP 124/74
[2021-02-24] MEDS ORDERED: P20 MT (17:07)
[2021-02-24] MEDS ORDERED: IPRA3AMP9 HHN (17:07)
[2021-02-24] MEDS ORDERED: ALBU6.7H9 INH (17:07)
[2021-02-24] MEDS ORDERED: FLUT1DIS3 INH (17:07)
[2021-02-24] MEDS ORDERED: ENOXAPARIN 40MG/0.4ML SYR SUBCUT SCH (19:00)
[2021-02-24 20:00] VITALS: BP 120/82
[2021-02-24] MEDS: FAMOTIDINE 20MG TABLET PO SCH (21:21)
[2021-02-25] VITALS: BP 126/80
[2021-02-25] MEDS: IPRATROPIUM/ALBUTEROL 0.5-3(2.5)MG/3ML NEB HHN SCH ×3 (01:09→08:30)
[2021-02-25] MEDS: METHYLPREDNISOLONE SOD SUCC 40 MG/ML VIAL IV SCH ×2 (01:55→10:50)
[2021-02-25 04:00] VITALS: BP 128/78
[2021-02-25 08:00] VITALS: BP 143/80
[2021-02-25 11:03] VITALS: BP 143/80
== END 2021-02-25 11:35 | disposition home or self-care (01) | DRG 140 ==
LOC: ER 17:37 → MICUSO 22:07 → 7EST 02-23 20:28
PROVIDERS: ADMIT Internal Medicine; ATTEND Internal Medicine
DX: J44.1 Chronic obstructive pulmonary disease with (acute) exacerbation (principal); E78.00 Pure hypercholesterolemia, unspecified; E78.5 Hyperlipidemia, unspecified; Y92.89 Other specified places as the place of occurrence of the external cause; F14.90 Cocaine use, unspecified, uncomplicated; I10 Essential (primary) hypertension; R06.03 Acute respiratory distress; Z82.49 Family history of ischemic heart disease and other diseases of the circulatory system; Z82.5 Family history of asthma and other chronic lower respiratory diseases; Z88.1 Allergy status to other antibiotic agents; Z88.0 Allergy status to penicillin; Z79.82 Long term (current) use of aspirin; Z79.84 Long term (current) use of oral hypoglycemic drugs; Z79.899 Other long term (current) drug therapy; Z71.51 Drug abuse counseling and surveillance of drug abuser; F99 Mental disorder, not otherwise specified
CPT/HCPCS: 36415; 71045; 80053; 80320; 83880; 84484; 85025; 93005; 94640; 99285; J1630; J1650; J2060; J2920; J2930; G0480

== ENCOUNTER 2021-03-10 11:51 | Inpatient (IN) | payer MEDICAID ==
[~2021-03-10] VITALS: Ht 190.5 cm; Wt 104.8 kg
[2021-03-10] MEDS ORDERED: IPRATROPIUM BROMIDE (0.02%) 0.5MG/2.5ML NEB HHN STA (13:25)
[2021-03-10] MEDS ORDERED: PREDNISONE 20MG TABLET PO STA (13:25)
[2021-03-10] MEDS: ALBUTEROL (0.083%) 2.5MG/3ML NEB HHN SCH (14:10)
[2021-03-10 14:34] LABS: BASOPHILS % 1.2 % (0.0-2.0); EOSINOPHILS % 11.5 % (0.0-5.0); HEMATOCRIT. 36.4 % (42.0-52.0); HEMOGLOBIN. 12.2 g/dL (14.0-18.0); LYMPHOCYTES % 26.6 % (20.0-50.0); MEAN CORPUSCULAR HEMOGLOBIN 32.3 pg (28.0-32.0); MEAN CORPUSCULAR VOLUME 96.3 fL (80.0-94.0); MEAN PLATELET VOLUME 7.6 fl (7.4-10.4); MONOCYTES % 9.9 % (2.0-8.0); NEUTROPHILS % 50.8 % (40.0-76.0); PLATELET 233 x1000/uL (130-400); RED BLOOD CELL COUNT 3.78 mill/uL (4.7-6.1); RED CELL DISTRIBUTION WIDTH 15.5 % (11.6-14.6)
[2021-03-10 14:41] LABS: CHLORIDE 106 mEq/L (98-107)
[2021-03-10] MEDS ORDERED: FUROSEMIDE 40MG TABLET PO ONE (15:30)
[2021-03-10] MEDS ORDERED: CLONIDINE 0.1MG TABLET PO PRN (19:45)
[2021-03-10] MEDS ORDERED: NITROGLYCERIN 0.4MG TABLET SL SL PRN (19:45)
[2021-03-10] MEDS ORDERED: NA PHOS,M-B/NA PHOS,DI-BA ENEMA 118ML PR PRN (19:45)
[2021-03-10] MEDS ORDERED: ONDANSETRON HCL 4MG/2ML INJ IV PRN (19:45)
[2021-03-10] MEDS ORDERED: ZOLPIDEM TARTRATE 5MG TABLET PO PRN (19:45)
[2021-03-10] MEDS ORDERED: DOCUSATE SODIUM 100MG CAPSULE PO PRN (19:45)
[2021-03-10] MEDS ORDERED: DEXTROSE 50% WATER 50ML SYRINGE IV PRN (19:45)
[2021-03-10] MEDS ORDERED: GUAIFENESIN 200MG/10ML SUGAR FREE UDC PO PRN (19:45)
[2021-03-10] MEDS ORDERED: ACETAMINOPHEN 325MG TABLET PO PRN ×2 (19:45)
[2021-03-10] MEDS: IPRATROPIUM/ALBUTEROL 0.5-3(2.5)MG/3ML NEB NEB PRN (20:10)
[2021-03-10 20:16] LABS: ETHANOL BLOOD < 10 mg/dL
[2021-03-10 20:18] LABS: TOTAL IRON BINDING CAPACITY 285 ug/dL (250-450)
[2021-03-10 20:50] LABS: FOLIC ACID (FOLATE) SERUM 11.2 ng/mL (>5.38)
[2021-03-10] MEDS: BLOOD SUGAR DIAGNOSTIC STRIP TEST SCH (21:00)
[2021-03-10] MEDS: INSULIN LISPRO 100 UNITS/ML SUBCUT SCH (21:00)
[2021-03-10] MEDS: FUROSEMIDE 40MG/4ML VIAL IVP SCH ×2 (21:00→23:33)
[2021-03-10 21:30] VITALS: BP 179/110
[2021-03-10] MEDS: FAMOTIDINE 20MG TABLET PO SCH (23:33)
[2021-03-10] MEDS: ENOXAPARIN 40MG/0.4ML SYR SUBCUT SCH (23:33)
[2021-03-10] MEDS: SPIRONOLACTONE 25MG TABLET PO SCH (23:33)
[2021-03-10] MEDS: LISINOPRIL 10MG TABLET PO SCH (23:38)
[2021-03-10 23:45] LABS: CREATINE KINASE 131 IU/L (39-308)
[2021-03-10 23:46] LABS: CREATINE KINASE MB FRACTION 1.6 ng/mL (0.5-3.6)
[2021-03-11] MEDS: IPRATROPIUM/ALBUTEROL 0.5-3(2.5)MG/3ML NEB NEB PRN ×4 (01:18→18:31)
[2021-03-11] MEDS: BLOOD SUGAR DIAGNOSTIC STRIP TEST SCH ×4 (06:08→20:51)
[2021-03-11] MEDS: INSULIN LISPRO 100 UNITS/ML SUBCUT SCH ×4 (06:08→20:51)
[2021-03-11 07:59] VITALS: BP 144/88
[2021-03-11] MEDS: ASPIRIN 325MG EC TABLET PO SCH (09:15)
[2021-03-11] MEDS: FUROSEMIDE 40MG/4ML VIAL IVP SCH ×2 (09:15→20:51)
[2021-03-11] MEDS: LISINOPRIL 10MG TABLET PO SCH ×2 (09:16→20:51)
[2021-03-11] MEDS: FAMOTIDINE 20MG TABLET PO SCH ×2 (09:16→20:51)
[2021-03-11] MEDS: SPIRONOLACTONE 25MG TABLET PO SCH ×2 (09:16→20:51)
[2021-03-11] MEDS: KETOROLAC 15MG/ML VIAL IV PRN ×2 (09:27→21:12)
[2021-03-11] MEDS ORDERED: INFLUENZA VACCINE 05/PF 0.5 ML SYRINGE IM ONE (10:00)
[2021-03-11 11:30] LABS: BASOPHILS % 0.5 % (0.0-2.0); EOSINOPHILS % 0.6 % (0.0-5.0); HEMATOCRIT. 41.2 % (42.0-52.0); HEMOGLOBIN. 13.3 g/dL (14.0-18.0); LYMPHOCYTES % 11.9 % (20.0-50.0); MEAN CORPUSCULAR HEMOGLOBIN 31.3 pg (28.0-32.0); MEAN CORPUSCULAR VOLUME 97.2 fL (80.0-94.0); MEAN PLATELET VOLUME 7.8 fl (7.4-10.4); MONOCYTES % 11.5 % (2.0-8.0); NEUTROPHILS % 75.5 % (40.0-76.0); PLATELET 233 x1000/uL (130-400); RED BLOOD CELL COUNT 4.23 mill/uL (4.7-6.1); RED CELL DISTRIBUTION WIDTH 15.4 % (11.6-14.6)
[2021-03-11 11:44] LABS: CHLORIDE 101 mEq/L (98-107)
[2021-03-11 11:50] LABS: PHOSPHORUS 2.8 mg/dL (2.5-4.9)
[2021-03-11 11:53] LABS: CREATINE KINASE 107 IU/L (39-308)
[2021-03-11 11:56] LABS: CREATINE KINASE MB FRACTION 1.2 ng/mL (0.5-3.6)
[2021-03-11] MEDS: MAGNESIUM/ALUMINUM HYDROXIDE/SIMETHICONE 30ML UDC PO PRN (11:58)
[2021-03-11 12:00] VITALS: BP 150/88
[2021-03-11 14:34] LABS: CLARITY URINE CLEAR (CLEAR); COLOR URINE YELLOW (YELLOW); KETONES URINE NEGATIVE (NEGATIVE); LEUKOCYTE ESTERASE URINE NEGATIVE (NEGATIVE); NITRITE URINE NEGATIVE (NEGATIVE); OCCULT BLOOD URINE NEGATIVE (NEGATIVE); PH URINE 6.5 (4.5-8.0); PROTEIN URINE NEGATIVE (NEGATIVE); SPECIFIC GRAVITY URINE 1.006 (1.005-1.030); UROBILINOGEN URINE 0.2 E.U./dL (0.2-1.0)
[2021-03-11 14:55] LABS: *AMPHETAMINES SCREEN URINE PRESUMTIVE POSITIVE (NEGATIVE); *BARBITURATES SCREEN URINE NEGATIVE (NEGATIVE); *BENZODIAZEPINES SCREEN URINE NEGATIVE (NEGATIVE); *COCAINE SCREEN URINE PRESUMTIVE POSITIVE (NEGATIVE); METHADONE URINE SCREEN NEGATIVE (NEGATIVE); OPIATES URINE SCREEN NEGATIVE (NEGATIVE)
[2021-03-11 14:56] LABS: CANNABINOID URINE SCREEN NEGATIVE (NEGATIVE); PHENCYCLIDINE URINE SCREEN NEGATIVE (NEGATIVE)
[2021-03-11 16:00] VITALS: BP 137/75
[2021-03-11] MEDS: METHYLPREDNISOLONE SOD SUCC 40 MG/ML VIAL IV SCH (18:28)
[2021-03-11 20:39] VITALS: BP 138/81
[2021-03-11] MEDS: ENOXAPARIN 40MG/0.4ML SYR SUBCUT SCH (20:51)
[2021-03-11] MEDS: IPRATROPIUM/ALBUTEROL 0.5-3(2.5)MG/3ML NEB HHN SCH (21:16)
[2021-03-12 00:05] VITALS: BP 125/78
[2021-03-12] MEDS: IPRATROPIUM/ALBUTEROL 0.5-3(2.5)MG/3ML NEB HHN SCH ×5 (03:03→19:46)
[2021-03-12 04:00] VITALS: BP 133/89
[2021-03-12] MEDS: INSULIN LISPRO 100 UNITS/ML SUBCUT SCH ×4 (05:46→21:22)
[2021-03-12] MEDS: BLOOD SUGAR DIAGNOSTIC STRIP TEST SCH ×4 (05:46→21:05)
[2021-03-12 08:00] VITALS: BP 132/93
[2021-03-12] MEDS: FAMOTIDINE 20MG TABLET PO SCH ×2 (08:41→21:05)
[2021-03-12] MEDS: FUROSEMIDE 40MG/4ML VIAL IVP SCH ×2 (08:41→21:05)
[2021-03-12] MEDS: LISINOPRIL 10MG TABLET PO SCH ×2 (08:41→21:05)
[2021-03-12] MEDS: METHYLPREDNISOLONE SOD SUCC 40 MG/ML VIAL IV SCH ×3 (08:41→16:43)
[2021-03-12] MEDS: ASPIRIN 325MG EC TABLET PO SCH (08:42)
[2021-03-12] MEDS: SPIRONOLACTONE 25MG TABLET PO SCH ×2 (08:42→21:05)
[2021-03-12 12:00] VITALS: BP 144/92
[2021-03-12 16:00] VITALS: BP 120/92
[2021-03-12 20:00] VITALS: BP 149/92
[2021-03-12] MEDS: ENOXAPARIN 40MG/0.4ML SYR SUBCUT SCH (20:59)
[2021-03-13] VITALS: BP 141/69
[2021-03-13] MEDS: METHYLPREDNISOLONE SOD SUCC 40 MG/ML VIAL IV SCH ×2 (00:52→08:27)
[2021-03-13] MEDS: IPRATROPIUM/ALBUTEROL 0.5-3(2.5)MG/3ML NEB HHN SCH ×3 (01:47→08:00)
[2021-03-13 04:00] VITALS: BP 122/65
[2021-03-13] MEDS: BLOOD SUGAR DIAGNOSTIC STRIP TEST SCH ×2 (07:37→12:02)
[2021-03-13 08:00] VITALS: BP 110/72
[2021-03-13] MEDS: FUROSEMIDE 40MG/4ML VIAL IVP SCH (08:27)
[2021-03-13] MEDS: FAMOTIDINE 20MG TABLET PO SCH (08:28)
[2021-03-13] MEDS: LISINOPRIL 10MG TABLET PO SCH (08:28)
[2021-03-13] MEDS: ASPIRIN 325MG EC TABLET PO SCH (08:28)
[2021-03-13] MEDS: INSULIN LISPRO 100 UNITS/ML SUBCUT SCH ×2 (08:29→12:02)
[2021-03-13] MEDS: SPIRONOLACTONE 25MG TABLET PO SCH (08:33)
[2021-03-13] MEDS: MAGNESIUM/ALUMINUM HYDROXIDE/SIMETHICONE 30ML UDC PO PRN (10:19)
[2021-03-13 10:45] VITALS: BP 110/72
[2021-03-13 12:00] VITALS: BP 125/87
== END 2021-03-13 13:20 | disposition home or self-care (01) | DRG 194 ==
LOC: ER 11:51 → 6WST 19:08 → EDBEDREQTM 19:29 → EDBEDREQ 19:29 → ENRESERV 20:10
PROVIDERS: ADMIT Internal Medicine; ATTEND Internal Medicine
DX: I11.0 Hypertensive heart disease with heart failure (principal); J96.00 Acute respiratory failure, unspecified whether with hypoxia or hypercapnia; E44.1 Mild protein-calorie malnutrition; D72.10 Eosinophilia, unspecified; D63.8 Anemia in other chronic diseases classified elsewhere; E11.9 Type 2 diabetes mellitus without complications; D64.9 Anemia, unspecified; I50.43 Acute on chronic combined systolic (congestive) and diastolic (congestive) heart failure; I42.9 Cardiomyopathy, unspecified; J44.1 Chronic obstructive pulmonary disease with (acute) exacerbation; F14.10 Cocaine abuse, uncomplicated; E66.9 Obesity, unspecified; F17.210 Nicotine dependence, cigarettes, uncomplicated; F15.10 Other stimulant abuse, uncomplicated; E78.00 Pure hypercholesterolemia, unspecified; T59.891A Toxic effect of other specified gases, fumes and vapors, accidental (unintentional), initial encounter; Y92.89 Other specified places as the place of occurrence of the external cause; Z79.4 Long term (current) use of insulin; Z82.49 Family history of ischemic heart disease and other diseases of the circulatory system; Z82.5 Family history of asthma and other chronic lower respiratory diseases; Z68.28 Body mass index [BMI] 28.0-28.9, adult; Z88.0 Allergy status to penicillin; Z88.1 Allergy status to other antibiotic agents; Z79.899 Other long term (current) drug therapy; Z79.82 Long term (current) use of aspirin; Z71.6 Tobacco abuse counseling; Z71.51 Drug abuse counseling and surveillance of drug abuser
CPT/HCPCS: 36415; 71045; 71250; 80053; 80305; 80320; 81003; 82550; 82553; 82607; 82728; 82746; 82962; 83036; 83540; 83550; 83735; 83880; 84100; 84484; 85025; 90686; 93005; 93306; 93970; 94640; 94644; 99285; C1893; J1650; J1815; J1885; J1940; J2920; J7512; G0480

== ENCOUNTER 2021-03-25 10:15 | Inpatient (IN) | payer MEDICAID ==
[~2021-03-25] VITALS: Ht 190.5 cm; Wt 106.6 kg
[2021-03-25] MEDS ORDERED: IPRATROPIUM BROMIDE (0.02%) 0.5MG/2.5ML NEB HHN STA (10:32)
[2021-03-25] MEDS ORDERED: METHYLPREDNISOLONE SOD SUCC 125 MG/2 ML VIAL IV STA (10:32)
[2021-03-25] MEDS ORDERED: ALBUTEROL (0.083%) 2.5MG/3ML NEB HHN STA (10:32)
[2021-03-25 12:09] LABS: BASOPHILS % 1.2 % (0.0-2.0); EOSINOPHILS % 13.7 % (0.0-5.0); HEMATOCRIT. 36.6 % (42.0-52.0); HEMOGLOBIN. 12.1 g/dL (14.0-18.0); LYMPHOCYTES % 24.2 % (20.0-50.0); MEAN CORPUSCULAR HEMOGLOBIN 31.9 pg (28.0-32.0); MEAN CORPUSCULAR VOLUME 96.6 fL (80.0-94.0); MEAN PLATELET VOLUME 8.2 fl (7.4-10.4); MONOCYTES % 8.5 % (2.0-8.0); NEUTROPHILS % 52.4 % (40.0-76.0); PLATELET 249 x1000/uL (130-400); RED BLOOD CELL COUNT 3.79 mill/uL (4.7-6.1); RED CELL DISTRIBUTION WIDTH 14.6 % (11.6-14.6)
[2021-03-25 12:18] LABS: CHLORIDE 108 mEq/L (98-107)
[2021-03-25] MEDS ORDERED: ALBUTEROL (0.5%) 2.5MG/0.5ML NEB HHN ONE (13:30)
[2021-03-25] MEDS ORDERED: MAGNESIUM/ALUMINUM HYDROXIDE/SIMETHICONE 30ML UDC PO PRN (16:00)
[2021-03-25] MEDS ORDERED: ACETAMINOPHEN 325MG TABLET PO PRN (16:00)
[2021-03-25] MEDS ORDERED: LEVOFLOXACIN 500MG PREMIX 100 ML IV SCH (16:00)
[2021-03-25] MEDS ORDERED: CLONIDINE 0.1MG TABLET PO PRN (16:00)
[2021-03-25] MEDS ORDERED: HYDROCODONE/ACETAMINOPHEN 5/325MG TABLET PO PRN (16:00)
[2021-03-25] MEDS ORDERED: GUAIFENESIN 200MG/10ML SUGAR FREE UDC PO PRN (16:00)
[2021-03-25] MEDS ORDERED: IPRATROPIUM/ALBUTEROL 0.5-3(2.5)MG/3ML NEB HHN PRN (16:00)
[2021-03-25] MEDS ORDERED: ONDANSETRON HCL 4MG/2ML INJ IV PRN (16:00)
[2021-03-25] MEDS ORDERED: DOCUSATE SODIUM 100MG CAPSULE PO PRN (16:00)
[2021-03-25] MEDS: ENOXAPARIN 40MG/0.4ML SYR SUBCUT SCH (17:27)
[2021-03-25] MEDS: AMLODIPINE 10MG TABLET PO SCH (17:28)
[2021-03-25] MEDS: LEVOFLOXACIN 750MG PREMIX 150 ML IV SCH (17:28)
[2021-03-25] MEDS: IPRATROPIUM/ALBUTEROL 0.5-3(2.5)MG/3ML NEB HHN SCH (17:43)
[2021-03-25] MEDS: METHYLPREDNISOLONE SOD SUCC 125 MG/2 ML VIAL IV SCH (18:24)
[2021-03-26] MEDS: METHYLPREDNISOLONE SOD SUCC 125 MG/2 ML VIAL IV SCH ×4 (01:55→20:34)
[2021-03-26] MEDS: IPRATROPIUM/ALBUTEROL 0.5-3(2.5)MG/3ML NEB HHN SCH ×5 (02:20→20:58)
[2021-03-26 06:25] VITALS: BP 134/84
[2021-03-26 08:00] VITALS: BP 144/90
[2021-03-26 09:51] LABS: HEMATOCRIT. 39.3 % (42.0-52.0); HEMOGLOBIN. 12.7 g/dL (14.0-18.0); MEAN CORPUSCULAR VOLUME 98.7 fL (80.0-94.0); MEAN PLATELET VOLUME 8.1 fl (7.4-10.4); PLATELET 257 x1000/uL (130-400); RED BLOOD CELL COUNT 3.98 mill/uL (4.7-6.1); RED CELL DISTRIBUTION WIDTH 14.7 % (11.6-14.6)
[2021-03-26 10:09] LABS: CHLORIDE 104 mEq/L (98-107)
[2021-03-26] MEDS: AMLODIPINE 10MG TABLET PO SCH (10:18)
[2021-03-26 10:49] VITALS: BP 144/90
[2021-03-26 12:00] VITALS: BP 127/79
[2021-03-26 16:00] VITALS: BP 135/90
[2021-03-26 16:06] LABS: PLATELET ESTIMATE NORMAL
[2021-03-26] MEDS: ENOXAPARIN 40MG/0.4ML SYR SUBCUT SCH (18:06)
[2021-03-26] MEDS: LEVOFLOXACIN 750MG PREMIX 150 ML IV SCH (18:06)
[2021-03-26] MEDS: MONTELUKAST SODIUM 10MG TABLET PO SCH (18:52)
[2021-03-26 20:00] VITALS: BP 139/80
[2021-03-26] MEDS: BUDESONIDE 0.5MG/2ML NEB HHN SCH (20:58)
[2021-03-27] VITALS: BP 147/92
[2021-03-27] MEDS: IPRATROPIUM/ALBUTEROL 0.5-3(2.5)MG/3ML NEB HHN SCH ×4 (01:19→22:08)
[2021-03-27 01:30] LABS: *AMPHETAMINES SCREEN URINE NEGATIVE (NEGATIVE); *BARBITURATES SCREEN URINE NEGATIVE (NEGATIVE); *BENZODIAZEPINES SCREEN URINE NEGATIVE (NEGATIVE); *COCAINE SCREEN URINE NEGATIVE (NEGATIVE)
[2021-03-27 01:31] LABS: CANNABINOID URINE SCREEN NEGATIVE (NEGATIVE); METHADONE URINE SCREEN NEGATIVE (NEGATIVE); OPIATES URINE SCREEN NEGATIVE (NEGATIVE); PHENCYCLIDINE URINE SCREEN NEGATIVE (NEGATIVE)
[2021-03-27 04:00] VITALS: BP 144/86
[2021-03-27] MEDS: METHYLPREDNISOLONE SOD SUCC 125 MG/2 ML VIAL IV SCH ×3 (05:48→21:31)
[2021-03-27 08:00] VITALS: BP 128/81
[2021-03-27] MEDS: AMLODIPINE 10MG TABLET PO SCH (09:27)
[2021-03-27] MEDS: BUDESONIDE 0.5MG/2ML NEB HHN SCH ×2 (09:55→22:07)
[2021-03-27 12:00] VITALS: BP 130/85
[2021-03-27] MEDS ORDERED: ALBU18HF2 IH (13:44)
[2021-03-27] MEDS ORDERED: MONT10TA32 MT (13:44)
[2021-03-27] MEDS ORDERED: IPRA3AMP9 HHN (13:44)
[2021-03-27] MEDS ORDERED: FLUT1BLS12 IH (13:44)
[2021-03-27 16:00] VITALS: BP 124/80
[2021-03-27] MEDS: MONTELUKAST SODIUM 10MG TABLET PO SCH (17:10)
[2021-03-27] MEDS: LEVOFLOXACIN 750MG PREMIX 150 ML IV SCH (17:10)
[2021-03-27] MEDS: ENOXAPARIN 40MG/0.4ML SYR SUBCUT SCH (17:10)
[2021-03-27 20:00] VITALS: BP 142/93
[2021-03-28] VITALS: BP 130/87
[2021-03-28] MEDS: IPRATROPIUM/ALBUTEROL 0.5-3(2.5)MG/3ML NEB HHN SCH ×2 (01:50→08:39)
[2021-03-28 04:00] VITALS: BP 119/75
[2021-03-28] MEDS: METHYLPREDNISOLONE SOD SUCC 125 MG/2 ML VIAL IV SCH (06:38)
[2021-03-28 08:00] VITALS: BP 143/96
[2021-03-28] MEDS: BUDESONIDE 0.5MG/2ML NEB HHN SCH (08:39)
[2021-03-28] MEDS: AMLODIPINE 10MG TABLET PO SCH (08:43)
[2021-03-28 10:54] VITALS: BP 143/96
== END 2021-03-28 11:25 | disposition home or self-care (01) | DRG 140 ==
LOC: ER 10:15 → MICUSO 15:23 → EDBEDREQTM 15:25 → EDBEDREQ 15:25 → 7EST 03-26 05:05
PROVIDERS: ADMIT Hospitalist; ATTEND Hospitalist
DX: J44.0 Chronic obstructive pulmonary disease with (acute) lower respiratory infection (principal); J96.00 Acute respiratory failure, unspecified whether with hypoxia or hypercapnia; J44.1 Chronic obstructive pulmonary disease with (acute) exacerbation; J45.901 Unspecified asthma with (acute) exacerbation; E78.00 Pure hypercholesterolemia, unspecified; I10 Essential (primary) hypertension; Z20.822 Contact with and (suspected) exposure to COVID-19; D64.9 Anemia, unspecified; E66.9 Obesity, unspecified; E05.90 Thyrotoxicosis, unspecified without thyrotoxic crisis or storm; J82.81 Chronic eosinophilic pneumonia; R74.01 Elevation of levels of liver transaminase levels; Z87.891 Personal history of nicotine dependence; Z68.29 Body mass index [BMI] 29.0-29.9, adult; Z88.1 Allergy status to other antibiotic agents; Z88.0 Allergy status to penicillin; Z79.82 Long term (current) use of aspirin; Z79.84 Long term (current) use of oral hypoglycemic drugs; Z79.899 Other long term (current) drug therapy
CPT/HCPCS: 36415; 71045; 80053; 80305; 83880; 84484; 85025; 87426; 93005; 94640; 99285; J1650; J1956; J2930; J7626

== ENCOUNTER 2021-04-21 12:58 | Inpatient (IN) | payer MEDICAID ==
[~2021-04-21] VITALS: Ht 172.7 cm; Wt 103.0 kg
[2021-04-21] MEDS ORDERED: ALBUTEROL (0.083%) 2.5MG/3ML NEB HHN STA (13:07)
[2021-04-21] MEDS ORDERED: IPRATROPIUM BROMIDE (0.02%) 0.5MG/2.5ML NEB HHN STA (13:07)
[2021-04-21] MEDS ORDERED: METHYLPREDNISOLONE SOD SUCC 125 MG/2 ML VIAL IV ONE (13:45)
[2021-04-21 13:48] LABS: HEMATOCRIT. 40.2 % (42.0-52.0); HEMOGLOBIN. 13.3 g/dL (14.0-18.0); MEAN CORPUSCULAR VOLUME 96.5 fL (80.0-94.0); MEAN PLATELET VOLUME 8.3 fl (7.4-10.4); PLATELET 228 x1000/uL (130-400); RED BLOOD CELL COUNT 4.17 mill/uL (4.7-6.1); RED CELL DISTRIBUTION WIDTH 14.9 % (11.6-14.6)
[2021-04-21 13:59] LABS: CHLORIDE 106 mEq/L (98-107)
[2021-04-21 14:45] LABS: PLATELET ESTIMATE NORMAL
[2021-04-21] MEDS ORDERED: ACETAMINOPHEN 325MG TABLET PO PRN (20:45)
[2021-04-21] MEDS ORDERED: IPRATROPIUM/ALBUTEROL 0.5-3(2.5)MG/3ML NEB HHN PRN (20:45)
[2021-04-21] MEDS ORDERED: ONDANSETRON HCL 4MG/2ML INJ IV PRN (20:45)
[2021-04-21] MEDS ORDERED: DOCUSATE SODIUM 100MG CAPSULE PO PRN (20:45)
[2021-04-21] MEDS ORDERED: MAGNESIUM/ALUMINUM HYDROXIDE/SIMETHICONE 30ML UDC PO PRN (20:45)
[2021-04-21] MEDS ORDERED: HYDROCODONE/ACETAMINOPHEN 5/325MG TABLET PO PRN (20:45)
[2021-04-21] MEDS ORDERED: GUAIFENESIN 200MG/10ML SUGAR FREE UDC PO PRN (20:45)
[2021-04-21] MEDS ORDERED: HYDROMORPHONE HCL/PF 2MG/ML CPJ IV PRN (20:45)
[2021-04-21] MEDS ORDERED: CLONIDINE 0.1MG TABLET PO PRN (20:45)
[2021-04-21] MEDS: ENOXAPARIN 30MG/0.3ML SYR SUBCUT SCH (21:39)
[2021-04-21] MEDS: METHYLPREDNISOLONE SOD SUCC 125 MG/2 ML VIAL IV SCH (21:40)
[2021-04-22] MEDS: METHYLPREDNISOLONE SOD SUCC 125 MG/2 ML VIAL IV SCH ×4 (02:24→20:45)
[2021-04-22 02:57] VITALS: BP 142/97
[2021-04-22] MEDS: IPRATROPIUM/ALBUTEROL 0.5-3(2.5)MG/3ML NEB HHN SCH ×4 (04:46→20:45)
[2021-04-22 05:20] LABS: BASOPHILS % 0.3 % (0.0-2.0); EOSINOPHILS % 0.1 % (0.0-5.0); HEMATOCRIT. 37.5 % (42.0-52.0); HEMOGLOBIN. 12.4 g/dL (14.0-18.0); MEAN CORPUSCULAR VOLUME 96.7 fL (80.0-94.0); MEAN PLATELET VOLUME 8.3 fl (7.4-10.4); MONOCYTES % 1.4 % (2.0-8.0); NEUTROPHILS % 87.2 % (40.0-76.0); PLATELET 220 x1000/uL (130-400); RED BLOOD CELL COUNT 3.88 mill/uL (4.7-6.1); RED CELL DISTRIBUTION WIDTH 14.8 % (11.6-14.6)
[2021-04-22 05:25] LABS: CHLORIDE 104 mEq/L (98-107)
[2021-04-22] MEDS: ENOXAPARIN 30MG/0.3ML SYR SUBCUT SCH ×2 (09:00→21:00)
[2021-04-22] MEDS ORDERED: DEXTROSE 50% WATER 50ML SYRINGE IV PRN (10:45)
[2021-04-22] MEDS: BLOOD SUGAR DIAGNOSTIC STRIP TEST SCH ×3 (11:27→21:00)
[2021-04-22] MEDS: INSULIN LISPRO 100 UNITS/ML SUBCUT SCH ×3 (11:28→21:00)
[2021-04-22] MEDS: PROPYLTHIOURACIL 50MG TABLET PO SCH ×2 (11:39→17:27)
[2021-04-22] MEDS: FAMOTIDINE 20MG TABLET PO SCH ×2 (11:47→21:00)
[2021-04-22] MEDS: LORATADINE 10MG TABLET PO SCH (11:47)
[2021-04-22] MEDS: FUROSEMIDE 40MG TABLET PO SCH (11:47)
[2021-04-22] MEDS: CHLORTHALIDONE 25MG TABLET PO SCH (11:47)
[2021-04-22] MEDS: LISINOPRIL 10MG TABLET PO SCH (11:47)
[2021-04-22 12:00] VITALS: BP 134/88
[2021-04-22 16:00] VITALS: BP 140/86
[2021-04-22] MEDS ORDERED: MONTELUKAST SODIUM 10MG TABLET PO SCH (17:00)
[2021-04-22] MEDS: METFORMIN HCL 500MG TABLET PO SCH (17:28)
[2021-04-22 20:00] VITALS: BP 144/81
[2021-04-22] MEDS ORDERED: ATORVASTATIN CALCIUM 10MG TABLET PO SCH (21:00)
[2021-04-22] MEDS ORDERED: FAMOTIDINE(NEO) 1MG/ML SUSP PO SCH (21:00)
[2021-04-23] VITALS: BP 154/75
[2021-04-23] MEDS: IPRATROPIUM/ALBUTEROL 0.5-3(2.5)MG/3ML NEB HHN SCH ×3 (01:34→13:03)
[2021-04-23] MEDS: METHYLPREDNISOLONE SOD SUCC 125 MG/2 ML VIAL IV SCH ×2 (02:45→09:54)
[2021-04-23 04:00] VITALS: BP 128/83
[2021-04-23] MEDS: BLOOD SUGAR DIAGNOSTIC STRIP TEST SCH ×2 (06:40→12:33)
[2021-04-23] MEDS: INSULIN LISPRO 100 UNITS/ML SUBCUT SCH ×2 (06:59→12:10)
[2021-04-23] MEDS: METFORMIN HCL 500MG TABLET PO SCH (06:59)
[2021-04-23 08:00] VITALS: BP 120/84
[2021-04-23] MEDS: CHLORTHALIDONE 25MG TABLET PO SCH (09:55)
[2021-04-23] MEDS: LISINOPRIL 10MG TABLET PO SCH (09:55)
[2021-04-23] MEDS: FAMOTIDINE 20MG TABLET PO SCH (09:55)
[2021-04-23] MEDS: FUROSEMIDE 40MG TABLET PO SCH (09:55)
[2021-04-23] MEDS: PROPYLTHIOURACIL 50MG TABLET PO SCH (09:55)
[2021-04-23] MEDS: LORATADINE 10MG TABLET PO SCH (09:56)
[2021-04-23] MEDS: ENOXAPARIN 30MG/0.3ML SYR SUBCUT SCH (09:56)
[2021-04-23 12:00] VITALS: BP 115/73
[2021-04-23 12:46] VITALS: BP 115/73
== END 2021-04-23 13:40 | disposition home or self-care (01) | DRG 140 ==
LOC: ER 12:58 → 7EST 16:59 → ENRESERV 22:19
PROVIDERS: ADMIT Hospitalist; ATTEND Hospitalist
DX: J44.1 Chronic obstructive pulmonary disease with (acute) exacerbation (principal); E44.1 Mild protein-calorie malnutrition; E78.00 Pure hypercholesterolemia, unspecified; Z20.822 Contact with and (suspected) exposure to COVID-19; E78.5 Hyperlipidemia, unspecified; I10 Essential (primary) hypertension; Z82.49 Family history of ischemic heart disease and other diseases of the circulatory system; Z87.891 Personal history of nicotine dependence; Z82.5 Family history of asthma and other chronic lower respiratory diseases; Z88.0 Allergy status to penicillin; Z88.8 Allergy status to other drugs, medicaments and biological substances; Z68.34 Body mass index [BMI] 34.0-34.9, adult
CPT/HCPCS: 36415; 71045; 80053; 82962; 83036; 83880; 84484; 85025; 87426; 93005; 93970; 94644; 99285; J1650; J2930

== ENCOUNTER 2021-05-08 16:29 | Inpatient (IN) | payer MEDICAID ==
[~2021-05-08] VITALS: Ht 191.8 cm; Wt 105.2 kg
[2021-05-08] MEDS ORDERED: METHYLPREDNISOLONE SOD SUCC 125 MG/2 ML VIAL IV STA (16:35)
[2021-05-08] MEDS ORDERED: IPRATROPIUM BROMIDE (0.02%) 0.5MG/2.5ML NEB HHN STA ×2 (16:35→18:23)
[2021-05-08] MEDS: ALBUTEROL (0.083%) 2.5MG/3ML NEB HHN SCH ×3 (17:12→18:08)
[2021-05-08] MEDS ORDERED: LEVOFLOXACIN 500MG PREMIX 100 ML IV ONE (18:15)
[2021-05-08] MEDS ORDERED: MAGNESIUM 2 G PREMIX 50 ML IV STA (18:23)
[2021-05-08] MEDS ORDERED: ALBUTEROL (0.083%) 2.5MG/3ML NEB HHN STA (18:23)
[2021-05-08 18:50] LABS: BASOPHILS % 0.7 % (0.0-2.0); EOSINOPHILS % 11.2 % (0.0-5.0); HEMATOCRIT. 35.4 % (42.0-52.0); HEMOGLOBIN. 11.5 g/dL (14.0-18.0); LYMPHOCYTES % 35.7 % (20.0-50.0); MEAN CORPUSCULAR HEMOGLOBIN 31.8 pg (28.0-32.0); MEAN CORPUSCULAR VOLUME 97.6 fL (80.0-94.0); MONOCYTES % 10.6 % (2.0-8.0); NEUTROPHILS % 41.8 % (40.0-76.0); PLATELET 198 x1000/uL (130-400); RED BLOOD CELL COUNT 3.62 mill/uL (4.7-6.1); RED CELL DISTRIBUTION WIDTH 15.1 % (11.6-14.6)
[2021-05-08 18:57] LABS: CHLORIDE 107 mEq/L (98-107)
[2021-05-08 20:39] LABS: T4 FREE 1.01 ng/dL (0.76-1.46)
[2021-05-08] MEDS ORDERED: ALBUTEROL (0.083%) 2.5MG/3ML NEB ONE (20:48)
[2021-05-08] MEDS ORDERED: IPRATROPIUM BROMIDE (0.02%) 0.5MG/2.5ML NEB ONE (20:49)
[2021-05-08 23:31] VITALS: BP 148/93
[2021-05-09] MEDS ORDERED: GUAIFENESIN 200MG/10ML SUGAR FREE UDC PO PRN (00:15)
[2021-05-09] MEDS ORDERED: DEXTROSE 50% WATER 50ML SYRINGE IV PRN (00:15)
[2021-05-09] MEDS ORDERED: ACETAMINOPHEN 325MG TABLET PO PRN ×2 (00:15)
[2021-05-09] MEDS ORDERED: MAGNESIUM/ALUMINUM HYDROXIDE/SIMETHICONE 30ML UDC PO PRN (00:15)
[2021-05-09] MEDS ORDERED: ZOLPIDEM TARTRATE 5MG TABLET PO PRN (00:15)
[2021-05-09] MEDS ORDERED: HYDRALAZINE 20MG/ML VIAL IV PRN (00:15)
[2021-05-09] MEDS ORDERED: CLONIDINE 0.1MG TABLET PO PRN (00:15)
[2021-05-09] MEDS ORDERED: DIPHENHYDRAMINE 50MG/ML VIAL IV PRN (00:15)
[2021-05-09] MEDS ORDERED: IPRATROPIUM/ALBUTEROL 0.5-3(2.5)MG/3ML NEB HHN PRN (00:15)
[2021-05-09] MEDS ORDERED: ONDANSETRON HCL 4MG/2ML INJ IV PRN (00:15)
[2021-05-09 04:00] VITALS: BP 124/57
[2021-05-09] MEDS: METFORMIN HCL 500MG TABLET PO SCH ×2 (06:30→16:56)
[2021-05-09] MEDS: METHYLPREDNISOLONE SOD SUCC 125 MG/2 ML VIAL IV SCH ×3 (06:30→21:11)
[2021-05-09] MEDS: INSULIN LISPRO 100 UNITS/ML SUBCUT SCH ×4 (06:31→21:00)
[2021-05-09] MEDS: SODIUM CHLORIDE 0.9% INJ 3ML FLUSH IVF SCH ×3 (06:32→22:00)
[2021-05-09] MEDS: BLOOD SUGAR DIAGNOSTIC STRIP TEST SCH ×4 (06:32→20:57)
[2021-05-09 08:13] VITALS: BP 136/72
[2021-05-09] MEDS: LISINOPRIL 10MG TABLET PO SCH (08:40)
[2021-05-09] MEDS: FAMOTIDINE 20MG TABLET PO SCH ×2 (08:40→20:57)
[2021-05-09] MEDS: ENOXAPARIN 40MG/0.4ML SYR SUBCUT SCH (08:40)
[2021-05-09] MEDS: IPRATROPIUM/ALBUTEROL 0.5-3(2.5)MG/3ML NEB HHN SCH ×3 (08:56→21:17)
[2021-05-09 12:34] VITALS: BP 131/80
[2021-05-09 16:00] VITALS: BP 135/88
[2021-05-09] MEDS ORDERED: GUAIFENESIN-DM 200MG-20MG/10ML UDC PO PRN (16:15)
[2021-05-09] MEDS: MONTELUKAST SODIUM 10MG TABLET PO SCH (16:56)
[2021-05-09 20:00] VITALS: BP 147/99
[2021-05-09] MEDS: LEVOFLOXACIN 500MG PREMIX 100 ML IV SCH (20:56)
[2021-05-09] MEDS: ATORVASTATIN CALCIUM 10MG TABLET PO SCH (20:57)
[2021-05-09] MEDS: INSULIN GLARGINE UD 100 UNITS/ML SYR SUBCUT SCH (22:00)
[2021-05-10] VITALS: BP 137/82
[2021-05-10 00:25] LABS: PHENCYCLIDINE URINE SCREEN NEGATIVE (NEGATIVE)
[2021-05-10 00:26] LABS: *AMPHETAMINES SCREEN URINE PRESUMTIVE POSITIVE (NEGATIVE); *BARBITURATES SCREEN URINE NEGATIVE (NEGATIVE); CANNABINOID URINE SCREEN NEGATIVE (NEGATIVE)
[2021-05-10 00:27] LABS: *BENZODIAZEPINES SCREEN URINE NEGATIVE (NEGATIVE); METHADONE URINE SCREEN NEGATIVE (NEGATIVE)
[2021-05-10 00:28] LABS: OPIATES URINE SCREEN NEGATIVE (NEGATIVE)
[2021-05-10 00:33] LABS: *COCAINE SCREEN URINE NEGATIVE (NEGATIVE)
[2021-05-10] MEDS: IPRATROPIUM/ALBUTEROL 0.5-3(2.5)MG/3ML NEB HHN SCH ×4 (00:59→21:29)
[2021-05-10 04:00] VITALS: BP 128/77
[2021-05-10] MEDS: METHYLPREDNISOLONE SOD SUCC 125 MG/2 ML VIAL IV SCH ×3 (05:31→21:44)
[2021-05-10] MEDS: SODIUM CHLORIDE 0.9% INJ 3ML FLUSH IVF SCH ×3 (06:00→20:42)
[2021-05-10] MEDS: BLOOD SUGAR DIAGNOSTIC STRIP TEST SCH ×4 (06:10→20:41)
[2021-05-10] MEDS: INSULIN LISPRO 100 UNITS/ML SUBCUT SCH ×4 (06:42→20:41)
[2021-05-10 08:00] VITALS: BP 141/99
[2021-05-10] MEDS: FAMOTIDINE 20MG TABLET PO SCH ×2 (08:31→20:35)
[2021-05-10] MEDS: LISINOPRIL 10MG TABLET PO SCH (08:31)
[2021-05-10] MEDS: METFORMIN HCL 500MG TABLET PO SCH ×2 (08:31→17:25)
[2021-05-10] MEDS: ENOXAPARIN 40MG/0.4ML SYR SUBCUT SCH (08:32)
[2021-05-10 12:00] VITALS: BP 135/90
[2021-05-10 16:00] VITALS: BP 143/84
[2021-05-10] MEDS: MONTELUKAST SODIUM 10MG TABLET PO SCH (17:25)
[2021-05-10 20:00] VITALS: BP 140/91
[2021-05-10] MEDS: ATORVASTATIN CALCIUM 10MG TABLET PO SCH (20:35)
[2021-05-10] MEDS: LEVOFLOXACIN 500MG PREMIX 100 ML IV SCH (20:39)
[2021-05-10] MEDS: INSULIN GLARGINE UD 100 UNITS/ML SYR SUBCUT SCH (20:41)
[2021-05-11] VITALS: BP 123/81
[2021-05-11] MEDS: IPRATROPIUM/ALBUTEROL 0.5-3(2.5)MG/3ML NEB HHN SCH ×2 (01:18→08:55)
[2021-05-11 04:00] VITALS: BP 130/76
[2021-05-11] MEDS: METHYLPREDNISOLONE SOD SUCC 125 MG/2 ML VIAL IV SCH (05:35)
[2021-05-11] MEDS: BLOOD SUGAR DIAGNOSTIC STRIP TEST SCH ×2 (06:25→11:40)
[2021-05-11] MEDS: METFORMIN HCL 500MG TABLET PO SCH (06:25)
[2021-05-11] MEDS: SODIUM CHLORIDE 0.9% INJ 3ML FLUSH IVF SCH (06:25)
[2021-05-11] MEDS: INSULIN LISPRO 100 UNITS/ML SUBCUT SCH ×2 (06:26→12:50)
[2021-05-11 08:00] VITALS: BP 142/94
[2021-05-11] MEDS: FAMOTIDINE 20MG TABLET PO SCH (09:24)
[2021-05-11] MEDS: ENOXAPARIN 40MG/0.4ML SYR SUBCUT SCH (09:24)
[2021-05-11] MEDS: LISINOPRIL 10MG TABLET PO SCH (09:24)
[2021-05-11 11:49] VITALS: BP 144/86
[2021-05-11 12:00] VITALS: BP 144/86
[2021-05-13 13:06] LABS: CYTOPLASMIC C-ANCA <1:20 titer (Neg:<1:20); PERINUCLEAR P-ANCA <1:20 titer (Neg:<1:20)
[2021-05-15 13:06] LABS: ANTI-MYELOPEROXIDASE AB < 9.0 U/mL (0.0-9.0); ANTI-PROTEINASE 3 ABS < 3.5 U/mL (0.0-3.5)
[2021-05-18] MEDS ORDERED: ALBU18HF2 IH (11:10)
[2021-05-18] MEDS ORDERED: MONT10TA32 MT (11:10)
[2021-05-18] MEDS ORDERED: P20 MT (11:10)
[2021-05-19 15:09] LABS: ANTI-NUCLEAR ANTIBODIES DIRECT Negative (Negative); ATYPICAL P-ANCA <1:20 titer (Neg:<1:20)
== END 2021-05-11 13:55 | disposition home or self-care (01) | DRG 140 ==
LOC: ER 18:42 → 7EST 20:18 → EDBEDREQ 20:21 → EDBEDREQSVC 20:21 → EDBEDREQTM 20:21 → ENRESERV 21:51
PROVIDERS: ADMIT Internal Medicine; ATTEND Internal Medicine
DX: J44.1 Chronic obstructive pulmonary disease with (acute) exacerbation (principal); J96.01 Acute respiratory failure with hypoxia; J82.81 Chronic eosinophilic pneumonia; E05.90 Thyrotoxicosis, unspecified without thyrotoxic crisis or storm; E66.9 Obesity, unspecified; I10 Essential (primary) hypertension; Z20.822 Contact with and (suspected) exposure to COVID-19; E78.00 Pure hypercholesterolemia, unspecified; J44.0 Chronic obstructive pulmonary disease with (acute) lower respiratory infection; E78.5 Hyperlipidemia, unspecified; Z82.49 Family history of ischemic heart disease and other diseases of the circulatory system; Z82.5 Family history of asthma and other chronic lower respiratory diseases; Z87.891 Personal history of nicotine dependence; Z88.1 Allergy status to other antibiotic agents; Z88.0 Allergy status to penicillin; Z79.82 Long term (current) use of aspirin; Z79.899 Other long term (current) drug therapy; Z68.28 Body mass index [BMI] 28.0-28.9, adult
CPT/HCPCS: 36415; 71045; 80053; 80305; 82962; 83036; 83520; 83605; 83880; 84439; 84443; 84484; 85025; 86038; 86256; 87426; 93005; 94640; 99291; J1650; J1815; J1956; J2930; J3475

== ENCOUNTER 2021-05-21 10:49 | Emergency (ER) | payer MEDICAID ==
[~2021-05-21] VITALS: Ht 188 cm; Wt 110.0 kg
[~2021-05-21 10:49] MED LIST changes: -ALBU6.7H9 INH; -MED4 MT; +MONT10TA32 MT; -MONT10TA32 PO
[2021-05-21 10:55] VITALS: BP 107/78
== END 2021-05-21 12:43 | disposition left against medical advice (07) ==
LOC: ER 11:41
DX: T17.228A Food in pharynx causing other injury, initial encounter (principal); I10 Essential (primary) hypertension; E11.9 Type 2 diabetes mellitus without complications; E78.00 Pure hypercholesterolemia, unspecified; J44.9 Chronic obstructive pulmonary disease, unspecified; Z79.899 Other long term (current) drug therapy; Z88.0 Allergy status to penicillin; Z88.8 Allergy status to other drugs, medicaments and biological substances; Z88.1 Allergy status to other antibiotic agents; X58.XXXA Exposure to other specified factors, initial encounter; Y93.89 Activity, other specified; Y92.89 Other specified places as the place of occurrence of the external cause; Y99.8 Other external cause status
CPT/HCPCS: 93005; 99283

== ENCOUNTER 2021-06-14 16:16 | Inpatient (IN) | payer MEDICAID ==
[~2021-06-14] VITALS: Ht 188 cm; Wt 106.6 kg
[2021-06-14] MEDS ORDERED: ALBUTEROL (0.083%) 2.5MG/3ML NEB HHN STA ×2 (16:35→17:14)
[2021-06-14] MEDS ORDERED: METHYLPREDNISOLONE SOD SUCC 125 MG/2 ML VIAL IM STA (16:35)
[2021-06-14] MEDS ORDERED: IPRATROPIUM BROMIDE (0.02%) 0.5MG/2.5ML NEB HHN STA ×2 (16:35→17:14)
[2021-06-14] MEDS ORDERED: METHYLPREDNISOLONE SOD SUCC 125 MG/2 ML VIAL IV STA (17:14)
[2021-06-14 18:05] LABS: BASOPHILS % 0.7 % (0.0-2.0); EOSINOPHILS % 2.6 % (0.0-5.0); HEMATOCRIT. 41.7 % (42.0-52.0); HEMOGLOBIN. 13.4 g/dL (14.0-18.0); LYMPHOCYTES % 24.8 % (20.0-50.0); MEAN CORPUSCULAR HEMOGLOBIN 30.1 pg (28.0-32.0); MEAN CORPUSCULAR VOLUME 93.7 fL (80.0-94.0); MEAN PLATELET VOLUME 8.4 fl (7.4-10.4); MONOCYTES % 8.2 % (2.0-8.0); NEUTROPHILS % 63.7 % (40.0-76.0); PLATELET 264 x1000/uL (130-400); RED BLOOD CELL COUNT 4.45 mill/uL (4.7-6.1); RED CELL DISTRIBUTION WIDTH 14.9 % (11.6-14.6)
[2021-06-14] MEDS ORDERED: LEVOFLOXACIN 750MG PREMIX 150 ML IV ONE (18:09)
[2021-06-14 18:13] LABS: CHLORIDE 104 mEq/L (98-107)
[2021-06-14] MEDS ORDERED: FUROSEMIDE 40MG/4ML VIAL IVP NR (19:00)
[2021-06-14] MEDS ORDERED: POTASSIUM CHLORIDE INJ 40 MEQ in DEXT 5% WATER 250 ML IV ONE (19:45)
[2021-06-14] MEDS ORDERED: MAGNESIUM 2 G PREMIX 50 ML IV NR (21:00)
[2021-06-14] MEDS ORDERED: ASPIRIN 325MG EC TABLET PO ONE (21:00)
[2021-06-14] MEDS ORDERED: KCL 20MEQ/100ML X 2 FOR TOTAL KCL 40MEQ/200ML IV SCH (21:00)
[2021-06-14] MEDS ORDERED: ACETAMINOPHEN 325MG TABLET PO PRN ×2 (22:30)
[2021-06-14] MEDS ORDERED: MAGNESIUM/ALUMINUM HYDROXIDE/SIMETHICONE 30ML UDC PO PRN (22:30)
[2021-06-14] MEDS ORDERED: MAGNESIUM HYDROXIDE 400MG/5ML 30ML UDC PO PRN (22:30)
[2021-06-14] MEDS ORDERED: LORAZEPAM 1MG TABLET PO PRN (22:30)
[2021-06-14] MEDS ORDERED: DEXTROSE 50% WATER 50ML SYRINGE IV PRN (22:30)
[2021-06-14] MEDS ORDERED: HYDROCODONE/ACETAMINOPHEN 5/325MG TABLET PO PRN (22:30)
[2021-06-14] MEDS ORDERED: ONDANSETRON HCL 4MG/2ML INJ IV PRN (22:30)
[2021-06-14] MEDS ORDERED: HYDRALAZINE 20MG/ML VIAL IV PRN (22:30)
[2021-06-14] MEDS ORDERED: GUAIFENESIN 200MG/10ML SUGAR FREE UDC PO PRN (22:30)
[2021-06-14] MEDS ORDERED: ENOXAPARIN 40MG/0.4ML SYR SUBCUT SCH (22:30)
[2021-06-14] MEDS ORDERED: IPRATROPIUM/ALBUTEROL 0.5-3(2.5)MG/3ML NEB HHN PRN (22:30)
[2021-06-14] MEDS ORDERED: ZOLPIDEM TARTRATE 5MG TABLET PO PRN (22:30)
[2021-06-14] MEDS ORDERED: DIPHENHYDRAMINE 50MG/ML VIAL IV PRN (22:30)
[2021-06-14] MEDS ORDERED: POTASSIUM CHLORIDE 20MEQ TABLET SR PO NR (22:45)
[2021-06-14] MEDS: ENOXAPARIN 30MG/0.3ML SYR SUBCUT SCH (23:49)
[2021-06-15 00:47] LABS: *AMPHETAMINES SCREEN URINE NEGATIVE (NEGATIVE); *BARBITURATES SCREEN URINE NEGATIVE (NEGATIVE); CANNABINOID URINE SCREEN NEGATIVE (NEGATIVE)
[2021-06-15 00:48] LABS: *BENZODIAZEPINES SCREEN URINE NEGATIVE (NEGATIVE); *COCAINE SCREEN URINE NEGATIVE (NEGATIVE); METHADONE URINE SCREEN NEGATIVE (NEGATIVE); OPIATES URINE SCREEN NEGATIVE (NEGATIVE); PHENCYCLIDINE URINE SCREEN NEGATIVE (NEGATIVE)
[2021-06-15 02:15] VITALS: BP 149/92
[2021-06-15] MEDS ORDERED: NALOXONE HCL 0.4MG/ML VIAL IV PRN (03:45)
[2021-06-15] MEDS: METHYLPREDNISOLONE SOD SUCC 125 MG/2 ML VIAL IV SCH ×3 (06:45→21:31)
[2021-06-15] MEDS: BLOOD SUGAR DIAGNOSTIC STRIP TEST SCH ×4 (06:45→21:00)
[2021-06-15] MEDS: SODIUM CHLORIDE 0.9% INJ 3ML FLUSH IVF SCH ×3 (06:45→21:32)
[2021-06-15 07:16] LABS: BASOPHILS % 0.4 % (0.0-2.0); HEMATOCRIT. 40.9 % (42.0-52.0); HEMOGLOBIN. 13.2 g/dL (14.0-18.0); LYMPHOCYTES % 11.3 % (20.0-50.0); MEAN CORPUSCULAR HEMOGLOBIN 30.4 pg (28.0-32.0); MEAN CORPUSCULAR VOLUME 94.2 fL (80.0-94.0); MEAN PLATELET VOLUME 8.2 fl (7.4-10.4); MONOCYTES % 4.3 % (2.0-8.0); PLATELET 267 x1000/uL (130-400); RED BLOOD CELL COUNT 4.34 mill/uL (4.7-6.1); RED CELL DISTRIBUTION WIDTH 15.1 % (11.6-14.6)
[2021-06-15 07:20] LABS: CHLORIDE 103 mEq/L (98-107)
[2021-06-15] MEDS: IPRATROPIUM/ALBUTEROL 0.5-3(2.5)MG/3ML NEB HHN SCH ×2 (07:33→13:03)
[2021-06-15] MEDS: INSULIN LISPRO 100 UNITS/ML SUBCUT SCH ×4 (07:50→21:30)
[2021-06-15 08:00] VITALS: BP 149/103
[2021-06-15] MEDS: AMLODIPINE 5MG TABLET PO SCH (09:53)
[2021-06-15] MEDS: ENOXAPARIN 30MG/0.3ML SYR SUBCUT SCH ×2 (11:07→21:31)
[2021-06-15 12:00] VITALS: BP 136/92
[2021-06-15] MEDS: CLONIDINE 0.1MG TABLET PO PRN ×2 (14:22→21:31)
[2021-06-15 16:00] VITALS: BP 138/92
[2021-06-15 20:00] VITALS: BP 146/110
[2021-06-16 04:00] VITALS: BP 144/96
[2021-06-16] MEDS: SODIUM CHLORIDE 0.9% INJ 3ML FLUSH IVF SCH (05:05)
[2021-06-16] MEDS: METHYLPREDNISOLONE SOD SUCC 125 MG/2 ML VIAL IV SCH (06:13)
[2021-06-16] MEDS: BLOOD SUGAR DIAGNOSTIC STRIP TEST SCH (06:14)
[2021-06-16] MEDS: INSULIN LISPRO 100 UNITS/ML SUBCUT SCH (07:50)
[2021-06-16] MEDS: IPRATROPIUM/ALBUTEROL 0.5-3(2.5)MG/3ML NEB HHN SCH ×2 (08:04→12:33)
[2021-06-16] MEDS: AMLODIPINE 5MG TABLET PO SCH (09:39)
[2021-06-16] MEDS: ENOXAPARIN 30MG/0.3ML SYR SUBCUT SCH (09:39)
[2021-06-16 12:02] VITALS: BP 128/95
== END 2021-06-16 13:24 | disposition home or self-care (01) | DRG 140 ==
LOC: ER 16:16 → MICUSO 20:48 → 6WST 06-15 03:25
PROVIDERS: ADMIT Internal Medicine; ATTEND Internal Medicine
DX: J44.1 Chronic obstructive pulmonary disease with (acute) exacerbation (principal); J96.01 Acute respiratory failure with hypoxia; I50.33 Acute on chronic diastolic (congestive) heart failure; I11.0 Hypertensive heart disease with heart failure; Z20.822 Contact with and (suspected) exposure to COVID-19; E78.00 Pure hypercholesterolemia, unspecified; Z88.1 Allergy status to other antibiotic agents; Z88.0 Allergy status to penicillin; Z88.8 Allergy status to other drugs, medicaments and biological substances; Z79.899 Other long term (current) drug therapy; Z79.84 Long term (current) use of oral hypoglycemic drugs; Z82.49 Family history of ischemic heart disease and other diseases of the circulatory system; Z82.5 Family history of asthma and other chronic lower respiratory diseases; Z87.891 Personal history of nicotine dependence
CPT/HCPCS: 36415; 71045; 80048; 80053; 80305; 82962; 83735; 83880; 84484; 85025; 87426; 93005; 94640; 99285; J1650; J1815; J1940; J1956; J2930; J3475; J3480

== ENCOUNTER 2021-08-09 17:17 | Inpatient (IN) | payer MEDICAID ==
[~2021-08-09] VITALS: Ht 188 cm; Wt 109.8 kg
[~2021-08-09 17:17] MED LIST changes: +LEVO500T89 MT; +MED4 MT; +SODI4VIA16 IH
[2021-08-09 19:26] LABS: HEMATOCRIT. 35.9 % (42.0-52.0); HEMOGLOBIN. 12.4 g/dL (14.0-18.0); MEAN CORPUSCULAR HEMOGLOBIN 31.9 pg (28.0-32.0); MEAN CORPUSCULAR VOLUME 92.5 fL (80.0-94.0); MEAN PLATELET VOLUME 8.2 fl (7.4-10.4); PLATELET 251 x1000/uL (130-400); RED BLOOD CELL COUNT 3.88 mill/uL (4.7-6.1); RED CELL DISTRIBUTION WIDTH 15.2 % (11.6-14.6)
[2021-08-09] MEDS ORDERED: MAGNESIUM 2 G PREMIX 50 ML IV STA (19:29)
[2021-08-09] MEDS ORDERED: ALBUTEROL (0.083%) 2.5MG/3ML NEB HHN STA (19:29)
[2021-08-09] MEDS ORDERED: METHYLPREDNISOLONE SOD SUCC 125 MG/2 ML VIAL IV STA (19:29)
[2021-08-09] MEDS ORDERED: IPRATROPIUM BROMIDE (0.02%) 0.5MG/2.5ML NEB HHN STA (19:29)
[2021-08-09 19:30] LABS: CHLORIDE 106 mEq/L (98-107)
[2021-08-09 22:28] LABS: PLATELET ESTIMATE NORMAL
[2021-08-10] MEDS ORDERED: ONDANSETRON HCL 4MG/2ML INJ IV PRN (09:00)
[2021-08-10] MEDS ORDERED: ACETAMINOPHEN 325MG TABLET PO PRN (09:00)
[2021-08-10] MEDS: METHYLPREDNISOLONE SOD SUCC 40 MG/ML VIAL IV SCH ×3 (09:14→21:24)
[2021-08-10] MEDS ORDERED: LORAZEPAM 2MG/ML CPJ IV PRN (19:15)
[2021-08-10] MEDS ORDERED: POTASSIUM CHLORIDE 20MEQ TABLET SR PO NR (20:00)
[2021-08-10] MEDS ORDERED: FAMOTIDINE 20MG TABLET PO SCH (21:00)
[2021-08-11] VITALS: BP 145/88
[2021-08-11] MEDS: IPRATROPIUM/ALBUTEROL 0.5-3(2.5)MG/3ML NEB HHN SCH ×3 (00:42→13:17)
[2021-08-11 01:10] VITALS: BP 145/88
[2021-08-11] MEDS: METHYLPREDNISOLONE SOD SUCC 40 MG/ML VIAL IV SCH ×2 (05:32→14:43)
[2021-08-11 08:00] VITALS: BP 144/92
[2021-08-11 12:00] VITALS: BP 134/91
== END 2021-08-11 15:36 | disposition left against medical advice (07) | DRG 140 ==
LOC: ER 17:17 → MICUSO 22:03 → 6EST 08-11 01:28
PROVIDERS: ADMIT Internal Medicine; ATTEND Internal Medicine
DX: J44.1 Chronic obstructive pulmonary disease with (acute) exacerbation (principal); J96.00 Acute respiratory failure, unspecified whether with hypoxia or hypercapnia; E44.1 Mild protein-calorie malnutrition; D64.9 Anemia, unspecified; E78.00 Pure hypercholesterolemia, unspecified; E78.5 Hyperlipidemia, unspecified; E87.6 Hypokalemia; Z20.822 Contact with and (suspected) exposure to COVID-19; F17.210 Nicotine dependence, cigarettes, uncomplicated; F19.10 Other psychoactive substance abuse, uncomplicated; I10 Essential (primary) hypertension; Z82.49 Family history of ischemic heart disease and other diseases of the circulatory system; Z82.5 Family history of asthma and other chronic lower respiratory diseases; Z68.31 Body mass index [BMI] 31.0-31.9, adult; Z88.1 Allergy status to other antibiotic agents; Z88.0 Allergy status to penicillin; Z79.2 Long term (current) use of antibiotics; Z79.899 Other long term (current) drug therapy; Z71.51 Drug abuse counseling and surveillance of drug abuser
CPT/HCPCS: 36415; 71045; 80053; 83880; 84484; 85025; 87426; 93005; 94640; 99285; J2405; J2920; J2930; J3475

== ENCOUNTER 2021-08-17 19:33 | Inpatient (IN) | payer MEDICAID ==
[~2021-08-17] VITALS: Ht 195.6 cm; Wt 92.1 kg
[2021-08-17] MEDS ORDERED: IPRATROPIUM BROMIDE (0.02%) 0.5MG/2.5ML NEB HHN STA (19:40)
[2021-08-17] MEDS ORDERED: METHYLPREDNISOLONE SOD SUCC 125 MG/2 ML VIAL IV STA (19:40)
[2021-08-17] MEDS ORDERED: ALBUTEROL (0.083%) 2.5MG/3ML NEB HHN STA (19:40)
[2021-08-17] MEDS ORDERED: MAGNESIUM 2 G PREMIX 50 ML IV ONE (19:45)
[2021-08-17 19:59] LABS: BASOPHILS % 0.7 % (0.0-2.0); EOSINOPHILS % 11.9 % (0.0-5.0); HEMATOCRIT. 36.2 % (42.0-52.0); HEMOGLOBIN. 12.2 g/dL (14.0-18.0); LYMPHOCYTES % 31.1 % (20.0-50.0); MEAN CORPUSCULAR HEMOGLOBIN 31.5 pg (28.0-32.0); MEAN CORPUSCULAR VOLUME 93.6 fL (80.0-94.0); MEAN PLATELET VOLUME 8.1 fl (7.4-10.4); MONOCYTES % 10.7 % (2.0-8.0); NEUTROPHILS % 45.6 % (40.0-76.0); PLATELET 185 x1000/uL (130-400); RED BLOOD CELL COUNT 3.87 mill/uL (4.7-6.1); RED CELL DISTRIBUTION WIDTH 15.5 % (11.6-14.6)
[2021-08-17 20:04] LABS: CHLORIDE 105 mEq/L (98-107)
[2021-08-17] MEDS ORDERED: MAGNESIUM/ALUMINUM HYDROXIDE/SIMETHICONE 30ML UDC PO PRN (22:15)
[2021-08-17] MEDS ORDERED: HYDROCODONE/ACETAMINOPHEN 5/325MG TABLET PO PRN (22:15)
[2021-08-17] MEDS ORDERED: CLONIDINE 0.1MG TABLET PO PRN (22:15)
[2021-08-17] MEDS ORDERED: ONDANSETRON HCL 4MG/2ML INJ IV PRN (22:15)
[2021-08-17] MEDS ORDERED: ENOXAPARIN 40MG/0.4ML SYR SUBCUT SCH (22:15)
[2021-08-17] MEDS ORDERED: ACETAMINOPHEN 325MG TABLET PO PRN ×2 (22:15)
[2021-08-17] MEDS ORDERED: GUAIFENESIN 200MG/10ML SUGAR FREE UDC PO PRN (22:15)
[2021-08-17] MEDS ORDERED: IPRATROPIUM/ALBUTEROL 0.5-3(2.5)MG/3ML NEB NEB PRN (22:15)
[2021-08-17] MEDS ORDERED: NALOXONE HCL 0.4 MG/ML 1ML VIAL IV PRN (22:45)
[2021-08-17] MEDS: IPRATROPIUM/ALBUTEROL 0.5-3(2.5)MG/3ML NEB NEB SCH (23:00)
[2021-08-18 04:58] LABS: CHLORIDE 103 mEq/L (98-107)
[2021-08-18 05:07] LABS: PHOSPHORUS 2.1 mg/dL (2.5-4.9)
[2021-08-18] MEDS: IPRATROPIUM/ALBUTEROL 0.5-3(2.5)MG/3ML NEB NEB SCH ×3 (05:20→20:08)
[2021-08-18] MEDS ORDERED: ENOXAPARIN 30MG/0.3ML SYR SUBCUT SCH (09:00)
[2021-08-18] MEDS ORDERED: DEXTROSE 50% WATER 50ML SYRINGE IV PRN (09:45)
[2021-08-18] MEDS ORDERED: METO25TA6 PO (09:54)
[2021-08-18] MEDS ORDERED: SPIR25TA6 PO (09:54)
[2021-08-18] MEDS ORDERED: ARIP10TA56 PO (09:54)
[2021-08-18] MEDS ORDERED: APIX5TAB PO (09:54)
[2021-08-18] MEDS ORDERED: FURO20TA4 PO (09:54)
[2021-08-18] MEDS: PROPYLTHIOURACIL 50MG TABLET PO SCH ×2 (10:00→20:20)
[2021-08-18 10:09] LABS: BASOPHILS % 0.5 % (0.0-2.0); EOSINOPHILS % 0.3 % (0.0-5.0); LYMPHOCYTES % 12.7 % (20.0-50.0); MEAN CORPUSCULAR HEMOGLOBIN 30.7 pg (28.0-32.0); MEAN CORPUSCULAR VOLUME 94.5 fL (80.0-94.0); MEAN PLATELET VOLUME 9.2 fl (7.4-10.4); MONOCYTES % 0.6 % (2.0-8.0); NEUTROPHILS % 85.9 % (40.0-76.0); PLATELET 180 x1000/uL (130-400); RED BLOOD CELL COUNT 3.91 mill/uL (4.7-6.1); RED CELL DISTRIBUTION WIDTH 15.7 % (11.6-14.6)
[2021-08-18 12:00] VITALS: BP 138/92
[2021-08-18] MEDS: INSULIN LISPRO 100 UNITS/ML SUBCUT SCH ×3 (12:15→20:21)
[2021-08-18] MEDS: PREDNISONE 20MG TABLET PO SCH (12:23)
[2021-08-18] MEDS: APIXABAN 5 MG TABLET PO SCH ×2 (12:23→20:21)
[2021-08-18] MEDS: FAMOTIDINE 20MG TABLET PO SCH ×2 (12:24→20:20)
[2021-08-18] MEDS: ASPIRIN 81MG EC TABLET PO SCH (12:24)
[2021-08-18] MEDS: AMLODIPINE 10MG TABLET PO SCH (12:24)
[2021-08-18] MEDS: METOPROLOL TARTRATE 25MG TABLET PO SCH ×2 (12:24→20:20)
[2021-08-18] MEDS: BLOOD SUGAR DIAGNOSTIC STRIP TEST SCH ×3 (12:31→20:21)
[2021-08-18] MEDS ORDERED: P20 MT (12:51)
[2021-08-18] MEDS ORDERED: MONT10TA21 MT (12:51)
[2021-08-18] MEDS ORDERED: IPRA3AMP9 NEB (12:51)
[2021-08-18 14:34] VITALS: BP 129/86
[2021-08-18 16:00] VITALS: BP 128/70
[2021-08-18] MEDS ORDERED: PNEUMOCOCCAL 23-VAL P-SAC VAC 0.5 ML IM ONE (17:00)
[2021-08-18 20:47] VITALS: BP 134/77
[2021-08-18] MEDS ORDERED: ATORVASTATIN CALCIUM 10MG TABLET PO SCH (21:00)
[2021-08-18] MEDS ORDERED: MONTELUKAST SODIUM 10MG TABLET PO SCH (21:00)
[2021-08-19 00:43] VITALS: BP 129/78
[2021-08-19] MEDS: IPRATROPIUM/ALBUTEROL 0.5-3(2.5)MG/3ML NEB NEB SCH ×4 (01:32→12:25)
[2021-08-19 04:00] VITALS: BP 130/74
[2021-08-19] MEDS: BLOOD SUGAR DIAGNOSTIC STRIP TEST SCH ×2 (06:32→11:50)
[2021-08-19] MEDS: INSULIN LISPRO 100 UNITS/ML SUBCUT SCH ×2 (06:33→11:50)
[2021-08-19 08:00] VITALS: BP 110/66
[2021-08-19 08:08] LABS: *AMPHETAMINES SCREEN URINE NEGATIVE (NEGATIVE)
[2021-08-19 08:09] LABS: *BARBITURATES SCREEN URINE NEGATIVE (NEGATIVE); *BENZODIAZEPINES SCREEN URINE NEGATIVE (NEGATIVE); *COCAINE SCREEN URINE NEGATIVE (NEGATIVE); METHADONE URINE SCREEN NEGATIVE (NEGATIVE); OPIATES URINE SCREEN NEGATIVE (NEGATIVE); PHENCYCLIDINE URINE SCREEN NEGATIVE (NEGATIVE)
[2021-08-19 08:10] LABS: CANNABINOID URINE SCREEN NEGATIVE (NEGATIVE)
[2021-08-19] MEDS: PREDNISONE 20MG TABLET PO SCH (10:10)
[2021-08-19] MEDS: PROPYLTHIOURACIL 50MG TABLET PO SCH (10:10)
[2021-08-19] MEDS: APIXABAN 5 MG TABLET PO SCH (10:10)
[2021-08-19] MEDS: FAMOTIDINE 20MG TABLET PO SCH (10:11)
[2021-08-19] MEDS: AMLODIPINE 10MG TABLET PO SCH (10:11)
[2021-08-19] MEDS: METOPROLOL TARTRATE 25MG TABLET PO SCH (10:12)
[2021-08-19] MEDS: ASPIRIN 81MG EC TABLET PO SCH (10:12)
[2021-08-19 12:00] VITALS: BP 138/71
== END 2021-08-19 13:35 | disposition left against medical advice (07) | DRG 140 ==
LOC: ER 19:33 → MICUSO 20:59 → SUPCPDRO 21:53 → EDBEDREQTM 23:06 → EDBEDREQSVC 23:06 → EDBEDREQ 23:06 → 5EST 08-18 04:26 → MICUSO 08-18 05:10 → EDBEDREQSVC 08-18 07:34 → 5WST 08-18 10:33
PROVIDERS: ADMIT Internal Medicine; ATTEND Internal Medicine
PROC: 5A09357 Assistance with Respiratory Ventilation, Less than 24 Consecutive Hours, Continuous Positive Airway Pressure (ICD-10-PCS; principal; 2021-08-17)
DX: J44.1 Chronic obstructive pulmonary disease with (acute) exacerbation (principal); J96.01 Acute respiratory failure with hypoxia; J84.9 Interstitial pulmonary disease, unspecified; E05.90 Thyrotoxicosis, unspecified without thyrotoxic crisis or storm; E66.9 Obesity, unspecified; J82.81 Chronic eosinophilic pneumonia; I10 Essential (primary) hypertension; F17.200 Nicotine dependence, unspecified, uncomplicated; Z53.29 Procedure and treatment not carried out because of patient's decision for other reasons; Z20.822 Contact with and (suspected) exposure to COVID-19; R73.9 Hyperglycemia, unspecified; E78.5 Hyperlipidemia, unspecified; R73.03 Prediabetes; Z79.01 Long term (current) use of anticoagulants; Z79.51 Long term (current) use of inhaled steroids; Z79.82 Long term (current) use of aspirin; Z82.49 Family history of ischemic heart disease and other diseases of the circulatory system; Z82.5 Family history of asthma and other chronic lower respiratory diseases; Z79.899 Other long term (current) drug therapy; Z88.1 Allergy status to other antibiotic agents; Z88.0 Allergy status to penicillin
CPT/HCPCS: 36415; 71045; 80048; 80053; 80305; 82962; 83036; 83735; 83880; 84100; 84484; 85025; 87426; 93005; 94640; 94660; 99291; J1650; J1815; J2930; J3475; J7512

== ENCOUNTER 2022-04-22 16:37 | Inpatient (IN) | payer MEDICAID ==
[~2022-04-22] VITALS: Ht 190.5 cm; Wt 118.4 kg
[~2022-04-22 16:37] MED LIST changes: +APIX5TAB PO; +ARIP10TA56 PO; +FURO20TA4 PO; +IPRA3AMP9 NEB; +LEVO-65 MT; -LEVO500T89 MT; +METO25TA6 PO; +MONT-39 MT; +MONT10TA21 MT; -MONT10TA32 MT; +SPIR25TA6 PO
[2022-04-22 21:07] LABS: BG BASE EXCESS -3.5 mmol/L (-2.0-2.0); BG CARBOXYHEMOGLOBIN 0.3 % (0.5-1.5); BG DEOXYHEMOGLOBIN 10.3 % (0.0-5.0); BG FRACTION INSPIRED OXYGEN 21; BG HCO3 ACT 21.3 mmol/L (22.0-26.0); BG METHEMOGLOBIN 0.2 % (0.0-1.5); BG OXYGEN SATURATION 89.6 % (92.0-98.5); BG OXYHEMOGLOBIN 89.2 % (94.0-97.0); BG PCO2 37.5 mmHg (35.0-45.0); BG PH 7.372 (7.350-7.450); BG PO2 61.1 mmHg (75.0-100.0); BG SAMPLE SITE RIGHT RADIAL; BG TOTAL HEMOGLOBIN 10.5 g/dL (12.0-18.0); BG VENT MODE ROOM AIR
[2022-04-22 21:40] LABS: BASOPHILS % 0.5 % (0.0-2.0); EOSINOPHILS % 1.9 % (0.0-5.0); HEMATOCRIT. 30.3 % (42.0-52.0); HEMOGLOBIN. 10.1 g/dL (14.0-18.0); MEAN CORPUSCULAR HEMOGLOBIN 31.8 pg (28.0-32.0); MEAN CORPUSCULAR VOLUME 95.1 fL (80.0-94.0); MEAN PLATELET VOLUME 8.3 fl (7.4-10.4); MONOCYTES % 11.5 % (2.0-8.0); NEUTROPHILS % 60.1 % (40.0-76.0); PLATELET 224 x1000/uL (130-400); RED BLOOD CELL COUNT 3.19 mill/uL (4.7-6.1); RED CELL DISTRIBUTION WIDTH 16.1 % (11.6-14.6)
[2022-04-22 21:51] LABS: CHLORIDE 112 mEq/L (98-107)
[2022-04-22] MEDS ORDERED: FUROSEMIDE 100MG/10ML VIAL IVP NR (22:45)
[2022-04-23] MEDS ORDERED: DIPHENHYDRAMINE 50MG/ML VIAL IV PRN (10:00)
[2022-04-23] MEDS ORDERED: CLONIDINE 0.1MG TABLET PO PRN (10:00)
[2022-04-23] MEDS ORDERED: ACETAMINOPHEN 325MG TABLET PO PRN (10:00)
[2022-04-23] MEDS ORDERED: ONDANSETRON HCL 4MG/2ML INJ IV PRN (10:00)
[2022-04-23 10:30] VITALS: BP 144/90
[2022-04-23] MEDS ORDERED: MORPHINE SULFATE 2 MG/ML CPJ (NOT FOR IM USE) IV PRN (10:30)
[2022-04-23] MEDS ORDERED: NALOXONE HCL 0.4MG/ML VIAL IV PRN (10:45)
[2022-04-23 12:00] VITALS: BP 132/97
[2022-04-23] MEDS: IPRATROPIUM/ALBUTEROL 0.5-3(2.5)MG/3ML NEB HHN PRN (13:06)
[2022-04-23] MEDS: AZITHROMYCIN 500 MG in DEXT 5% WATER 250 ML IV SCH (13:39)
[2022-04-23 16:00] VITALS: BP 134/96
[2022-04-23 20:00] VITALS: BP 142/84
[2022-04-23 20:52] LABS: *AMPHETAMINES SCREEN URINE PRESUMTIVE POSITIVE (NEGATIVE); *BARBITURATES SCREEN URINE NEGATIVE (NEGATIVE); *BENZODIAZEPINES SCREEN URINE NEGATIVE (NEGATIVE); *COCAINE SCREEN URINE NEGATIVE (NEGATIVE); CANNABINOID URINE SCREEN NEGATIVE (NEGATIVE); METHADONE URINE SCREEN NEGATIVE (NEGATIVE); OPIATES URINE SCREEN NEGATIVE (NEGATIVE); PHENCYCLIDINE URINE SCREEN NEGATIVE (NEGATIVE)
[2022-04-23] MEDS: CARVEDILOL 3.125 MG TABLET PO SCH (22:48)
[2022-04-24] VITALS: BP 138/89
[2022-04-24 03:30] VITALS: BP 128/79
[2022-04-24 08:00] VITALS: BP 136/79
[2022-04-24] MEDS: FUROSEMIDE 40MG/4ML VIAL IV SCH (09:00)
[2022-04-24] MEDS: CARVEDILOL 3.125 MG TABLET PO SCH ×2 (10:18→21:00)
[2022-04-24] MEDS: AZITHROMYCIN 500 MG in DEXT 5% WATER 250 ML IV SCH (10:20)
[2022-04-24 12:00] VITALS: BP 129/88
[2022-04-24 16:00] VITALS: BP 132/97
[2022-04-25 07:55] VITALS: BP 132/91
[2022-04-25] MEDS: AZITHROMYCIN 500 MG in DEXT 5% WATER 250 ML IV SCH (08:47)
[2022-04-25] MEDS: CARVEDILOL 3.125 MG TABLET PO SCH (08:47)
[2022-04-25] MEDS: FUROSEMIDE 40MG/4ML VIAL IV SCH (08:47)
[2022-04-25] MEDS: IPRATROPIUM/ALBUTEROL 0.5-3(2.5)MG/3ML NEB HHN PRN (12:04)
[2022-04-25] MEDS ORDERED: HYDR-4001 MT (13:18)
[2022-04-25 13:49] VITALS: BP 134/70
[2022-04-25] MEDS ORDERED: IPRA3AMP9 NEB (16:27)
[2022-04-26] MEDS ORDERED: AZITHROMYCIN 500 MG TABLET PO SCH (09:00)
== END 2022-04-25 16:00 | disposition home or self-care (01) | DRG 194 ==
LOC: ER 16:37 → 3WST 04-23 03:12 → EDBEDREQ 04-23 03:18
PROVIDERS: ADMIT Internal Medicine; ATTEND Internal Medicine
DX: I11.0 Hypertensive heart disease with heart failure (principal); I42.9 Cardiomyopathy, unspecified; J44.9 Chronic obstructive pulmonary disease, unspecified; I50.43 Acute on chronic combined systolic (congestive) and diastolic (congestive) heart failure; M48.061 Spinal stenosis, lumbar region without neurogenic claudication; E78.00 Pure hypercholesterolemia, unspecified; Z91.199 Patient's noncompliance with other medical treatment and regimen due to unspecified reason; Z79.51 Long term (current) use of inhaled steroids; Z79.82 Long term (current) use of aspirin; Z82.49 Family history of ischemic heart disease and other diseases of the circulatory system; Z82.5 Family history of asthma and other chronic lower respiratory diseases; Z87.891 Personal history of nicotine dependence; Z88.0 Allergy status to penicillin; Z88.8 Allergy status to other drugs, medicaments and biological substances
CPT/HCPCS: 36415; 36600; 71045; 80053; 80305; 82375; 82805; 83605; 83880; 84145; 84484; 85025; 93005; 93306; 93970; 99285; J0456; J1200; J1940; J7060

== ENCOUNTER 2022-05-07 14:18 | Emergency (ER) | payer MEDICAID, OTHER ==
[~2022-05-07] VITALS: Ht 188 cm; Wt 100.0 kg
[~2022-05-07 14:18] MED LIST changes: -FURO20TA4 PO; +HYDR-4001 MT; -LEVO-65 MT; -MED4 MT; -MICO29.5 TP; -MONT10TA21 MT; -P20 MT; -SODI4VIA16 IH
[2022-05-07 22:58] LABS: BASOPHILS % 1.1 % (0.0-2.0); EOSINOPHILS % 8.9 % (0.0-5.0); HEMATOCRIT. 30.6 % (42.0-52.0); HEMOGLOBIN. 10.3 g/dL (14.0-18.0); LYMPHOCYTES % 29.6 % (20.0-50.0); MEAN CORPUSCULAR HEMOGLOBIN 31.6 pg (28.0-32.0); MEAN CORPUSCULAR VOLUME 94.4 fL (80.0-94.0); MEAN PLATELET VOLUME 7.8 fl (7.4-10.4); MONOCYTES % 8.6 % (2.0-8.0); NEUTROPHILS % 51.8 % (40.0-76.0); PLATELET 229 x1000/uL (130-400); RED BLOOD CELL COUNT 3.24 mill/uL (4.7-6.1); RED CELL DISTRIBUTION WIDTH 15.4 % (11.6-14.6)
[2022-05-07] MEDS ORDERED: METHYLPREDNISOLONE SOD SUCC 125 MG/2 ML VIAL IV STA (22:59)
[2022-05-07] MEDS ORDERED: IPRATROPIUM BROMIDE (0.02%) 0.5MG/2.5ML NEB HHN STA (22:59)
[2022-05-07] MEDS ORDERED: MAGNESIUM 2 G PREMIX 50 ML IV ONE (23:00)
[2022-05-07] MEDS ORDERED: ALBUTEROL (0.083%) 2.5MG/3ML NEB HHN SCH (23:00)
[2022-05-07 23:08] LABS: PROTHROMBIN TIME 11.1 sec (9.6-11.0)
[2022-05-07 23:09] LABS: CHLORIDE 106 mEq/L (98-107)
[2022-05-08 00:31] LABS: CLARITY URINE CLEAR (CLEAR); COLOR URINE YELLOW (YELLOW); KETONES URINE NEGATIVE (NEGATIVE); LEUKOCYTE ESTERASE URINE NEGATIVE (NEGATIVE); NITRITE URINE NEGATIVE (NEGATIVE); OCCULT BLOOD URINE NEGATIVE (NEGATIVE); PH URINE 5.5 (4.5-8.0); PROTEIN URINE TRACE (NEGATIVE); SPECIFIC GRAVITY URINE 1.018 (1.005-1.030)
[2022-05-08] MEDS ORDERED: AZITHROMYCIN 500 MG TABLET PO ONE (01:15)
[2022-05-08 01:19] VITALS: BP 134/84
[2022-05-08] MEDS ORDERED: P20 MT (01:24)
[2022-05-08] MEDS ORDERED: AZIT250T12 MT (01:24)
== END 2022-05-08 01:54 | disposition home or self-care (01) ==
LOC: ER 14:18
DX: J44.1 Chronic obstructive pulmonary disease with (acute) exacerbation (principal); I11.0 Hypertensive heart disease with heart failure; I50.9 Heart failure, unspecified; E78.00 Pure hypercholesterolemia, unspecified; Z79.899 Other long term (current) drug therapy
CPT/HCPCS: 36415; 71045; 80053; 81003; 83880; 84484; 85025; 85610; 93005; 94640; 96365; 96375; 99285; J2930; J3475; Z7610

== ENCOUNTER 2022-06-06 15:40 | Emergency (ER) | payer MEDICAID, OTHER ==
[~2022-06-06] VITALS: Ht 188 cm; Wt 107.0 kg
[~2022-06-06 15:40] MED LIST changes: +AZIT250T12 MT; +P20 MT
[2022-06-06 15:52] VITALS: BP 126/91
[2022-06-06] MEDS ORDERED: IPRATROPIUM BROMIDE (0.02%) 0.5MG/2.5ML NEB HHN STA (16:17)
[2022-06-06] MEDS ORDERED: PREDNISONE 20MG TABLET PO STA (16:17)
[2022-06-06] MEDS ORDERED: ALBUTEROL (0.083%) 2.5MG/3ML NEB HHN STA (16:17)
[2022-06-06] MEDS ORDERED: ACETAMINOPHEN 325MG TABLET PO ONE (16:30)
[2022-06-06] MEDS ORDERED: CYCLOBENZAPRINE 10MG TABLET PO ONE (16:30)
[2022-06-06] MEDS ORDERED: P20 MT (19:36)
[2022-06-06] MEDS ORDERED: ALBU6.7H3 INH (19:36)
[2022-06-06] MEDS ORDERED: ALBU2.5V13 NEB (19:40)
== END 2022-06-06 19:55 | disposition home or self-care (01) ==
LOC: ER 15:40
DX: J45.901 Unspecified asthma with (acute) exacerbation (principal); I11.0 Hypertensive heart disease with heart failure; I50.9 Heart failure, unspecified; J44.9 Chronic obstructive pulmonary disease, unspecified; Z88.0 Allergy status to penicillin; Z79.899 Other long term (current) drug therapy; Z79.51 Long term (current) use of inhaled steroids
CPT/HCPCS: 94644; 99285; J7512; Z7610

== ENCOUNTER 2022-06-12 13:22 | Emergency (ER) | payer MEDICAID ==
[~2022-06-12] VITALS: Ht 185.4 cm; Wt 109.0 kg
[~2022-06-12 13:22] MED LIST changes: +ALBU2.5V13 NEB; +ALBU6.7H3 INH
[2022-06-12 13:31] VITALS: BP 168/104
[2022-06-12] MEDS ORDERED: IPRATROPIUM BROMIDE (0.02%) 0.5MG/2.5ML NEB HHN STA (15:06)
[2022-06-12] MEDS ORDERED: ALBUTEROL (0.083%) 2.5MG/3ML NEB HHN STA (15:06)
[2022-06-12] MEDS ORDERED: IPRA3AMP9 NEB (15:09)
[2022-06-12] MEDS ORDERED: ALBU18HF2 IH (15:09)
[2022-06-12] MEDS ORDERED: P20 MT (15:09)
[2022-06-12] MEDS ORDERED: AZIT250T12 MT (15:09)
[2022-06-12] MEDS ORDERED: DEXAMETHASONE 4MG/ML 1ML VIAL IM ONE (15:15)
== END 2022-06-12 16:49 | disposition home or self-care (01) ==
LOC: ER 13:22
DX: J44.1 Chronic obstructive pulmonary disease with (acute) exacerbation (principal); I11.0 Hypertensive heart disease with heart failure; I50.9 Heart failure, unspecified; J45.909 Unspecified asthma, uncomplicated; E78.00 Pure hypercholesterolemia, unspecified; Z88.0 Allergy status to penicillin; Z79.899 Other long term (current) drug therapy; Z98.890 Other specified postprocedural states
CPT/HCPCS: 94640; 96372; 99283; J1100; Z7610